=== PATIENT | female | born 1955 | race Caucasian/White ===

== ENCOUNTER 2018-04-07 11:41 | Emergency (ER) | END 2018-04-07 15:23 | disposition home or self-care (01) ==

== ENCOUNTER 2018-08-09 15:35 | Emergency (ER) | payer OTHER ==
[~2018-08-09] VITALS: Ht 165.1 cm; Wt 62.9 kg
[~2018-08-09 15:35] MED LIST: HYDR2TAB36 PO; LEVO100T82 PO; METF500T24 PO; ONDA4TAB14 PO; OXYC-209 PO
[2018-08-09 15:48] VITALS: Ht 165.1 cm; Wt 62.9 kg
[2018-08-09] MEDS ORDERED: LACTATED RINGER'S 1,000 ML IV STA (18:44)
[2018-08-09] MEDS ORDERED: HYDROmorphONE 1 MG/ML SYG IV STA (18:44)
[2018-08-09] MEDS ORDERED: ONDANSETRON 4 MG INJ IV STA (18:44)
[2018-08-09] MEDS ORDERED: SOD CHLORIDE 0.9% 1,000 ML IV STA (18:44)
[2018-08-09] MEDS ORDERED: OMEP20CA16 PO (18:48)
[2018-08-09] MEDS ORDERED: LACT1CAP56 PO (18:48)
--- NOTE | 2018-08-09 19:14 | ERD ---
ER Documentation Chief Complaint Chief Complaint Complains of abdominal pain x 3 days Hx of abdominal CA HPI 63-year-old woman presents with continued abdominal cramping and constipation despite Fleet enema performed last week for constipation. Patient has a history of pancreatic cancer and is currently undergoing chemotherapy. She denies blood per rectum or melena, no fevers or chills, no vomiting, no chest pain or shortness of breath. ROS All systems reviewed and are negative except as per history of present illness. Medications Home Meds Active Scripts Ondansetron (Ondansetron Odt) 4 Mg Tab.rapdis, 4 MG PO Q6H PRN for NAUSEA AND/OR VOMITING, #20 TAB Prov:LYNN DIANA MD 04/07/18 Hydromorphone Hcl* (Dilaudid*) 2 Mg Tablet, 1 MG PO Q6H PRN for PAIN, #12 TAB Prov:LYNN DIANA MD 04/07/18 Reported Medications Omeprazole* (Omeprazole*) 20 Mg Capsule.dr, 20 MG PO AC BREAKFAST, #30 CAP 08/09/18 Lactobacillus Combo No.11 (Probiotic) 1 Each Cap.sprink, 1 CAP PO DAILY, CAP 08/09/18 Oxycodone HCl/Acetaminophen (Percocet 10-325 mg Tablet) 1 Each Tablet, 0.5 EACH PO Q4H WHILE AWAKE PRN for PAIN, TAB 04/07/18 Metformin Hcl* (Metformin Hcl*) 500 Mg Tablet, 500 MG PO WITH BREAKFAST DINNE, #60 TAB 04/07/18 Levothyroxine Sodium* (Levoxyl*) 100 Mcg Tablet, 100 MCG PO BEFORE BREAKFAST, #30 TAB 04/07/18 Allergies Allergies: Coded Allergies: latex (Verified Allergy, Mild, 08/09/18) morphine (Verified Allergy, Unknown, 08/09/18) PMhx/Soc Hypertension, hypothyroidism, gastritis, pancreatic cancer, diabetes mellitus History of Surgery: Yes (HYSTERECTOMY, CHOLECYSTECTOMY,STOMACH SX.,LAPAROSCOPY, BACK SX.,C. TUNNEL) Anesthesia Reaction: No Hx Neurological Disorder: Yes (BALANCE PROBLEMS) Hx Respiratory Disorders: Yes (ASTHMA, HX. OF BRONCHITIS) Hx Cardiac Disorders: No Hx Psychiatric Problems: Yes (ANXIETY, DEPRESSION) Hx Miscellaneous Medical Probl: Yes (HTN, THYROID CA, pancreatic CA) Hx Alcohol Use: No Hx Substance Use: No Hx Tobacco Use: No Physical Exam Vitals Vital Signs Date Temp Pulse Resp B/P (MAP) Pulse Ox O2 O2 Flow FiO2 Time Delivery Rate 08/09/18 100.3 85 20 136/87 100 15:48 (103) Physical Exam GENERAL: Well-developed, well-nourished, well-hydrated, in no apparent distress, looks nontoxic in appearance HEENT: Moist mucous membranes, pink conjunctiva, no cervical spine tenderness or step-off deformities, no goiter, no jaundice or icterus, extraocular movements intact without pain. No submandibular induration, and no pharyngeal erythema NEURO: Alert and oriented 3, cranial nerves II through XII intact bilaterally, pupils equal round reactive to light, no focal deficits or facial asymmetry, sensation intact distally Strength 5/5 in upper and lower extremities bilaterally CARDIAC: Regular rate and rhythm, no murmurs rubs or gallops LUNGS: Clear bilaterally no wheezing crackles or stridor ABDOMEN: Soft nontender, no guarding, no rigidity, no rebound, no psoas sign no obturator sign. Normoactive bowel sounds SKIN: Warm and dry to touch, no abrasions, contusions, or hematomas, no lacerations, no ecchymosis, no target lesions, and without ulcers EXTREMITIES: No clubbing cyanosis or edema, calves are bilaterally symmetrical, no Homans sign, no popliteal cord sign. Distal pulses equal and bilateral PSYCH: Normal affect without agitation or irritability Result Diagram: 08/09/18192908/09/181929 Results 24 hrs Laboratory Tests Test 08/09/18 19:30 08/09/18 19:35 White Blood Count 16.8 10^3/ul Red Blood Count 2.98 10^6/ul Hemoglobin 10.4 g/dl Hematocrit 31.2 % Mean Corpuscular Volume 104.7 fl Mean Corpuscular Hemoglobin 34.9 pg Mean Corpuscular Hemoglobin Concent 33.3 g/dl Red Cell Distribution Width 14.3 % Platelet Count 100 10^3/UL Mean Platelet Volume 10.0 fl Immature Granulocytes % 0.800 % Neutrophils % % Lymphocytes % % Monocytes % % Eosinophils % % Basophils % % Nucleated Red Blood Cells % 0.0 /100WBC Immature Granulocytes # 0.130 10^3/ul Neutrophils # 10^3/ul Lymphocytes # 10^3/ul Monocytes # 10^3/ul Eosinophils # 10^3/ul Basophils # 10^3/ul Nucleated Red Blood Cells # 10^3/ul Sodium Level 138 mmol/L Potassium Level 3.6 mmol/L Chloride Level 108 mmol/L Carbon Dioxide Level 23 mmol/L Anion Gap 7 Blood Urea Nitrogen 11 mg/dl Creatinine 0.58 mg/dl Est Glomerular Filtrat Rate mL/min > 60 mL/min Glucose Level 132 mg/dl Calcium Level 8.9 mg/dl Total Bilirubin 0.3 mg/dl Direct Bilirubin 0.00 mg/dl Indirect Bilirubin 0.3 mg/dl Aspartate Amino Transf (AST/SGOT) 28 IU/L Alanine Aminotransferase (ALT/SGPT) 18 IU/L Alkaline Phosphatase 104 IU/L Total Protein 6.2 g/dl Albumin 3.4 g/dl Globulin 2.80 g/dl Albumin/Globulin Ratio 1.21 Lipase 182 U/L Urine Color YELLOW Urine Clarity SLIGHTLY CLOUDY Urine pH 6.0 Urine Specific [place] 1.020 Urine Ketones NEGATIVE mg/dL Urine Nitrite NEGATIVE mg/dL Urine Bilirubin NEGATIVE mg/dL Urine Urobilinogen NEGATIVE mg/dL Urine Leukocyte Esterase 1+ Clarita/ul Urine Microscopic RBC 2 /HPF Urine Microscopic WBC 10 /HPF Urine Squamous Epithelial Cells FEW /HPF Urine Mucus MANY /HPF Urine Hemoglobin NEGATIVE mg/dL Urine Glucose NEGATIVE mg/dL Urine Total Protein NEGATIVE mg/dl Current Medications Medications Dose Sig/Vijay Start Time Status Last (Trade) Ordered Route PRN Stop Time Admin Dose Reason Admin Sodium 1,000 ml @ Q1H STAT 08/09/18 DC 08/09/18 Chloride 1,000 mls/hr IV 18:44 19:33 08/09/18 19:43 Lactated 1,000 ml @ Q1H STAT 08/09/18 DC 08/09/18 Ringer's 1,000 mls/hr IV 18:44 19:41 08/09/18 19:43 1 mg ONCE STAT 08/09/18 DC 08/09/18 Hydromorphone IV 18:44 19:33 HCl 08/09/18 18:45 (Dilaudid) Ondansetron 4 mg ONCE STAT 08/09/18 DC 08/09/18 HCl (Zofran IV 18:44 19:33 Inj) 08/09/18 18:45 Ceftriaxone 50 ml @ ONCE ONCE 08/09/18 Sodium 100 mls/hr IVPB 20:30 08/09/18 20:59 Procedures/MDM IV line was established patient was placed on environmental monitoring technician rhythm strip revealed a sinus rhythm at about 80 bpm with upright P and T waves. Patient was afebrile I administered 1 L normal saline IV, Dilaudid 1 mg IV, Zofran 4 mg IV. CBC revealed a leukocytosis at 17, electrolytes are normal, liver function tests were normal, urinalysis positive for infection. I administered ceftriaxone 1 g IV. Patient has no signs or symptoms of pyelonephritis. CT scan of the abdomen and pelvis was performed, IMPRESSION: 1. Amorphous soft tissue density in the region of the pancreatic neck, suboptimally assessed on this noncontrast CT examination, neoplastic process is not excluded. Recommend dedicated CT abdomen pancreatic protocol for further evaluation. Upper abdominal lymph nodes may be further assessed at this time. 2. Apparent fat stranding about the pancreas, may in part be related to this apparent amorphous soft tissue process, though correlate for potential pancreatitis. 3. Postsurgical changes of the stomach in this patient with history of gastric cancer. Patient's vital signs are normal at this time and she appears well, she will be discharged with oral antibiotics after above therapy and will follow up with her primary care physician and [facility] physician for continued outpatient management. Differential diagnoses considered, included but not limited to acute coronary syndrome, pulmonary embolism, aortic dissection, abdominal aortic aneurysm, sepsis, stroke, meningitis, encephalitis, pneumonia, appendicitis, cholecystitis , bowel obstruction, pyelonephritis, nephrolithiasis, cystitis, as well as metabolic, hematologic, and electrolyte abnormalities. As well as abscess, cellulitis, fractures, and dislocations. Patient feels much better at this time, and vital signs are normal, symptoms have improved. I did give strict instructions to return to the ED if symptoms continue or worsen, patient will otherwise follow-up with primary care physician. Patient understood instructions and agreed to plan. Disclaimer: Inadvertent spelling and grammatical errors are likely due to EHR/dictation software use and do not reflect on the overall quality of patient care. Also, please note that the electronic time recorded on this note does not necessarily reflect the actual time of the patient encounter. Departure Diagnosis: Primary Impression: Pancreatic cancer Pancreatic malignancy location: unspecified Qualified Codes: C25.9 - Malignant neoplasm of pancreas, unspecified Additional Impressions: Constipation Constipation type: slow transit constipation Qualified Codes: K59.01 - Slow transit constipation Acute UTI Condition: Good LIDIA ONEILL MD Aug 09, 2018 19:14
[2018-08-09] MEDS ORDERED: CEFTRIAXONE 1 GM/50 ML (PMX) 50 ML IVPB ONE (20:30)
[2018-08-09] MEDS ORDERED: IBUP-1542 PO (20:40)
[2018-08-09] MEDS ORDERED: CEPH-443 PO (20:40)
[2018-08-09] MEDS ORDERED: POLY17PO6 PO (20:40)
[2018-08-09 22:30] VITALS: BP 152/91; PULSE 83; RESP 16
== END 2018-08-09 22:50 | disposition home or self-care (01) ==
LOC: E/R 15:35
DX: K59.01 Slow transit constipation (principal); N39.0 Urinary tract infection, site not specified; I10 Essential (primary) hypertension; E11.9 Type 2 diabetes mellitus without complications; E03.9 Hypothyroidism, unspecified; Z85.850 Personal history of malignant neoplasm of thyroid; Z79.84 Long term (current) use of oral hypoglycemic drugs
CPT/HCPCS: 36415; 74176; 80053; 81001; 83690; 85025; 96374; 96375; J0696; J1170; J2405; J7030; J7120; Z7502; Z7610

== ENCOUNTER 2018-08-13 11:23 | Emergency (ER) | payer OTHER ==
[~2018-08-13] VITALS: Ht 167.6 cm; Wt 62.7 kg
[~2018-08-13 11:23] MED LIST changes: +CEPH-443 PO; +IBUP-1542 PO; +LACT1CAP56 PO; +OMEP20CA16 PO; +POLY17PO6 PO
[2018-08-13 11:40] VITALS: Ht 167.6 cm; Wt 62.7 kg
--- NOTE | 2018-08-13 12:28 | ERD ---
ER Documentation Chief Complaint Chief Complaint abdominal pain x 2 days HPI The patient is a 73-year-old female, presenting to the ER because of acute on chronic abdominal pain. She was seen in the ER about 4 days ago and diagnosed with constipation and cystitis, had an abdominal pelvic CT that was unremarkable, was treated with Keflex. The abdominal pain is diffuse and vague. She denies fever, chills, neck pain, chest pain, dyspnea, vomiting, dysuria, diarrhea, constipation. She does not smoke nor drink Past medical history: Diabetes mellitus, hypothyroidism, asthma, anxiety, depression, metastatic pancreatic cancer on chemotherapy Past surgical history: Hysterectomy, cholecystectomy, back surgery, right knee arthroscopy, left knee arthroplasty ROS All systems reviewed and are negative except as per history of present illness. Medications Home Meds Active Scripts Ibuprofen* (Motrin*) 600 Mg Tab, 600 MG PO Q8 PRN for PAIN AND/OR INFLAMMATION, #30 TAB Prov:LIDIA ONEILL MD 08/09/18 Cephalexin* (Keflex*) 500 Mg Capsule, 500 MG PO QID for 5 Days, CAP Prov:LIDIA ONEILL MD 08/09/18 Reported Medications Levothyroxine Sodium* (Levoxyl*) 100 Mcg Tablet, 100 MCG PO BEFORE BREAKFAST, #30 TAB 04/07/18 Discontinued Reported Medications Omeprazole* (Omeprazole*) 20 Mg Capsule.dr, 20 MG PO AC BREAKFAST, #30 CAP 08/09/18 Lactobacillus Combo No.11 (Probiotic) 1 Each Cap.sprink, 1 CAP PO DAILY, CAP 08/09/18 Oxycodone HCl/Acetaminophen (Percocet 10-325 mg Tablet) 1 Each Tablet, 0.5 EACH PO Q4H WHILE AWAKE PRN for PAIN, TAB 04/07/18 Metformin Hcl* (Metformin Hcl*) 500 Mg Tablet, 500 MG PO WITH BREAKFAST DINNE, #60 TAB 04/07/18 Discontinued Scripts Polyethylene Glycol* (Miralax*) 17 Gm Powd.pack, 17 GM PO DAILY, #7 Prov:LIDIA ONEILL MD 08/09/18 Ondansetron (Ondansetron Odt) 4 Mg Tab.rapdis, 4 MG PO Q6H PRN for NAUSEA AND/OR VOMITING, #20 TAB Prov:LYNN DIANA MD 04/07/18 Hydromorphone Hcl* (Dilaudid*) 2 Mg Tablet, 1 MG PO Q6H PRN for PAIN, #12 TAB Prov:LYNN DIANA MD 04/07/18 Allergies Allergies: Coded Allergies: latex (Verified Allergy, Mild, 08/13/18) morphine (Verified Allergy, Unknown, 08/13/18) PMhx/Soc History of Surgery: Yes (HYSTERECTOMY, CHOLECYSTECTOMY,STOMACH SX.,LAPAROSCOPY, BACK SX.,C. TUNNEL) Anesthesia Reaction: No Hx Neurological Disorder: Yes (BALANCE PROBLEMS) Hx Respiratory Disorders: Yes (ASTHMA, HX. OF BRONCHITIS) Hx Cardiac Disorders: No Hx Psychiatric Problems: Yes (ANXIETY, DEPRESSION) Hx Miscellaneous Medical Probl: Yes (HTN, THYROID CA, pancreatic CA) Hx Alcohol Use: No Hx Substance Use: No Hx Tobacco Use: No Physical Exam Vitals Vital Signs Date Temp Pulse Resp B/P (MAP) Pulse Ox O2 O2 Flow FiO2 Time Delivery Rate 08/13/18 98.7 76 16 158/87 100 Room Air 16:44 (110) 08/13/18 98.7 74 16 160/90 100 Room Air 15:30 (113) 08/13/18 98.7 70 18 162/81 100 Room Air 14:10 (108) 08/13/18 98.7 83 20 151/89 100 11:40 (109) Physical Exam Const: No acute distress. Head: Atraumatic. Eyes: Normal Conjunctiva. ENT: Normal External Ears, Nose and Mouth. Neck: Full range of motion. No meningismus. Resp: Clear to auscultation bilaterally. Cardio: Regular rate and rhythm. Abd: Soft, non distended, normal bowel sounds, vague and diffuse abdominal discomfort, no rigidity/rebound/CVA tenderness Skin: No petechiae or rashes. Back: No midline or flank tenderness. Ext: No cyanosis, or edema. Neur: Awake and alert. No focal deficit Psych: Normal Mood and Affect. Result Diagram: 08/13/18 1311 08/13/18 1311 Results 24 hrs Laboratory Tests Test 08/13/18 12:44 08/13/18 13:11 Bedside Urine pH (LAB) 7.0 Bedside Urine Protein (LAB) 1+ Bedside Urine Glucose (UA) Negative Bedside Urine Ketones (LAB) Trace Bedside Urine Blood Trace-intact Bedside Urine Nitrite (LAB) Negative Bedside Urine Leukocyte Esterase (L Negative White Blood Count 4.3 10^3/ul Red Blood Count 2.92 10^6/ul Hemoglobin 10.3 g/dl Hematocrit 30.4 % Mean Corpuscular Volume 104.1 fl Mean Corpuscular Hemoglobin 35.3 pg Mean Corpuscular Hemoglobin Concent 33.9 g/dl Red Cell Distribution Width 13.7 % Platelet Count 83 10^3/UL Mean Platelet Volume 10.2 fl Immature Granulocytes % 0.900 % Nucleated Red Blood Cells % 0.0 /100WBC Immature Granulocytes # 0.040 10^3/ul Sodium Level 140 mmol/L Potassium Level 3.6 mmol/L Chloride Level 110 mmol/L Carbon Dioxide Level 22 mmol/L Anion Gap 8 Blood Urea Nitrogen 10 mg/dl Creatinine 0.53 mg/dl Est Glomerular Filtrat Rate mL/min > 60 mL/min Glucose Level 103 mg/dl Calcium Level 9.0 mg/dl Total Bilirubin 0.6 mg/dl Direct Bilirubin 0.00 mg/dl Indirect Bilirubin 0.6 mg/dl Aspartate Amino Transf (AST/SGOT) 29 IU/L Alanine Aminotransferase (ALT/SGPT) 22 IU/L Alkaline Phosphatase 82 IU/L Total Protein 6.2 g/dl Albumin 3.5 g/dl Globulin 2.70 g/dl Albumin/Globulin Ratio 1.29 Lipase 115 U/L Current Medications Medications Dose Sig/Vijay Start Time Status Last (Trade) Ordered Route PRN Stop Time Admin Dose Reason Admin 0.5 mg ONCE STAT 08/13/18 DC 08/13/18 Hydromorphone IV 12:53 08/13/18 13:17 HCl 12:54 (Dilaudid) Ondansetron 4 mg ONCE STAT 08/13/18 DC 08/13/18 HCl (Zofran IV 12:53 08/13/18 13:17 Inj) 12:54 Heparin 500 unit ONCE ONCE 08/13/18 DC 08/13/18 Sodium CATHETER 16:30 08/13/18 16:40 (Porcine) 16:31 (Heparin Flush (100 Units/ml)) Procedures/MDM MEDICAL MAKING DECISION: The patient is a 63-year-old female, presenting with acute on chronic abdominal pain of unclear etiology, most likely malignancy related to metastatic pancreatic cancer. She was treated with Dilaudid 0.5 mg IV for pain and Zofran for medical IV for nausea with good response, as above outpatient follow-up. I do not believe she requires another CT scan abdominopelvic The differential diagnoses considered include but are not limited to adhesion, UTI, constipation, cholelithiasis, cholecystitis, choledocholithiasis, cholangitis, pancreatitis, hepatitis, gastritis, peptic ulcer disease, gastric ulcer, appendicitis, cystitis, diverticulitis, partial small bowel obstruction. Departure Diagnosis: Primary Impression: Abdominal pain Additional Impression: Pancytopenia Condition: Good Comments I discussed the findings with the patient. I advised the patient to follow-up with her oncologist in the morning for evaluation and referral to pain management physician return if any concern. Disclaimer: Inadvertent spelling and grammatical errors are likely due to EHR/dictation software use and do not reflect on the overall quality of patient care. Also, please note that the electronic time recorded on this note does not necessarily reflect the actual time of the patient encounter. OBI JOHNSTON MD Aug 13, 2018 12:28
[2018-08-13] MEDS ORDERED: ONDANSETRON 4 MG INJ IV STA (12:53)
[2018-08-13] MEDS ORDERED: HYDROmorphONE 0.5 MG/0.5 ML SYG IV STA (12:53)
[2018-08-13] MEDS ORDERED: HEPARIN (100 UNITS/ML) 5 ML SYG CATHETER ONE (16:30)
[2018-08-13 16:44] VITALS: BP 158/87; PULSE 76; RESP 16
== END 2018-08-13 16:45 | disposition home or self-care (01) ==
LOC: E/R 11:23
DX: R10.9 Unspecified abdominal pain (principal); D61.818 Other pancytopenia; E11.9 Type 2 diabetes mellitus without complications; E03.9 Hypothyroidism, unspecified; J45.909 Unspecified asthma, uncomplicated; C25.9 Malignant neoplasm of pancreas, unspecified; I10 Essential (primary) hypertension; Z79.84 Long term (current) use of oral hypoglycemic drugs; Z85.850 Personal history of malignant neoplasm of thyroid; Z91.040 Latex allergy status
CPT/HCPCS: 36415; 80053; 81003; 83690; 85025; 96374; 96375; J1170; J1642; J2405; Z7502; Z7610

== ENCOUNTER 2018-08-31 09:49 | Emergency (ER) | payer OTHER ==
[~2018-08-31] VITALS: Ht 157.5 cm; Wt 68.0 kg
[~2018-08-31 09:49] MED LIST changes: -HYDR2TAB36 PO; -LACT1CAP56 PO; -METF500T24 PO; -OMEP20CA16 PO; -ONDA4TAB14 PO; -OXYC-209 PO; -POLY17PO6 PO
[2018-08-31 09:52] VITALS: Ht 157.5 cm; Wt 68.0 kg
[2018-08-31] MEDS ORDERED: HYDROmorphONE 1 MG/ML SYG IV STA (10:31)
[2018-08-31] MEDS ORDERED: SOD CHLORIDE 0.9% 1,000 ML IV STA (10:31)
[2018-08-31] MEDS ORDERED: ONDANSETRON 4 MG INJ IV STA ×2 (10:31→12:43)
[2018-08-31] MEDS ORDERED: SOD CHLORIDE 0.9% 100 ML ONE (11:18)
[2018-08-31] MEDS ORDERED: IOHEXOL 300MG/ML 150 ML BTL ONE (11:18)
--- NOTE | 2018-08-31 11:41 | ERD ---
ER Documentation Chief Complaint Chief Complaint pt bib self with c/o abd pain starting a few days HPI This is a 63-year-old female who is here for abdominal pain. The patient is currently being treated for pancreatic cancer and has her next chemo treatment on 05 September. She is complaining that she fell 3 weeks ago landing on her stomach. She says she thinks she made her hernia worse. The patient is a history of a epigastric hernia and a periumbilical hernia. She says she feels like there is a ball in her right lower abdomen. She has no vomiting but she is having green solid stools she states sometimes they are green and soft. No fever no cough no dysuria no back pain or hematuria. ROS All systems reviewed and are negative except as per history of present illness. Medications Home Meds Active Scripts Tramadol HCl (Tramadol HCl) 50 Mg Tablet, 50 MG PO Q6, #20 TAB Prov:DAMI FAIRCHILD DO 08/31/18 Ibuprofen* (Motrin*) 600 Mg Tab, 600 MG PO Q8 PRN for PAIN AND/OR INFLAMMATION, #30 TAB Prov:LIDIA ONEILL MD 08/09/18 Cephalexin* (Keflex*) 500 Mg Capsule, 500 MG PO QID for 5 Days, CAP Prov:LIDIA ONEILL MD 08/09/18 Reported Medications Levothyroxine Sodium* (Levoxyl*) 100 Mcg Tablet, 100 MCG PO BEFORE BREAKFAST, #30 TAB 04/07/18 Allergies Allergies: Coded Allergies: latex (Verified Allergy, Mild, 08/13/18) morphine (Verified Allergy, Unknown, 08/13/18) PMhx/Soc History of Surgery: Yes (HYSTERECTOMY, CHOLECYSTECTOMY,STOMACH SX.,LAPAROSCOPY, BACK SX.,C. TUNNEL) Anesthesia Reaction: No Hx Neurological Disorder: Yes (BALANCE PROBLEMS) Hx Respiratory Disorders: Yes (ASTHMA, HX. OF BRONCHITIS) Hx Cardiac Disorders: No Hx Psychiatric Problems: Yes (ANXIETY, DEPRESSION) Hx Miscellaneous Medical Probl: Yes (HTN, THYROID CA, pancreatic CA) Hx Alcohol Use: No Hx Substance Use: No Hx Tobacco Use: No Smoking Status: Never smoker FmHx Family History: No coronary disease Physical Exam Vitals Vital Signs Date Temp Pulse Resp B/P (MAP) Pulse Ox O2 O2 Flow FiO2 Time Delivery Rate 08/31/18 74 18 152/67 99 Room Air 13:42 (95) 08/31/18 80 14 157/76 98 Room Air 12:00 (103) 08/31/18 78 14 135/77 99 Room Air 10:00 (96) 08/31/18 98.5 92 18 165/90 100 09:52 (115) Physical Exam Const: Well-developed, well-nourished Head: Atraumatic, normocephalic Eyes: Normal Conjunctiva, PERRLA, EOMI, normal sclera, no nystagmus ENT: Normal External Ears, Nose and Mouth, moist mucus membranes. Neck: Full range of motion. No meningismus, no lymphadenopathy. Resp: Clear to auscultation bilaterally, no wheezing, rhonchi, rales Cardio: Regular rate and rhythm, no murmurs, S1 S2 present Abd: Soft, mild to moderate mid and right lower abdomen pain, non distended. Normal bowel sounds, no guarding or rebound, no pulsitile abdominal masses or bruits Skin: No petechiae or rashes, no ecchymosis , no maculopapular rash Back: No midline or flank tenderness Ext: No cyanosis, or edema, FROM x 4, normal inspection, neurovascul alia intact x 4 Neur: Awake and alert, STR 5/5 x 4, sensation intact x 4, no focal findings, cerebellum intact Psych: Normal Mood and Affect Result Diagram: 08/31/18 1033 08/31/18 1033 Results 24 hrs Laboratory Tests Test 08/31/18 10:33 08/31/18 11:30 White Blood Count 8.0 10^3/ul Red Blood Count 2.79 10^6/ul Hemoglobin 9.9 g/dl Hematocrit 29.8 % Mean Corpuscular Volume 106.8 fl Mean Corpuscular Hemoglobin 35.5 pg Mean Corpuscular Hemoglobin Concent 33.2 g/dl Red Cell Distribution Width 13.9 % Platelet Count 89 10^3/UL Mean Platelet Volume 10.1 fl Immature Granulocytes % 1.900 % Neutrophils % 76.1 % Lymphocytes % 15.2 % Monocytes % 6.0 % Eosinophils % 0.4 % Basophils % 0.4 % Nucleated Red Blood Cells % 0.0 /100WBC Immature Granulocytes # 0.150 10^3/ul Neutrophils # 6.1 10^3/ul Lymphocytes # 1.2 10^3/ul Monocytes # 0.5 10^3/ul Eosinophils # 0.0 10^3/ul Basophils # 0.0 10^3/ul Nucleated Red Blood Cells # 0.0 10^3/ul Prothrombin Time 13.9 Sec Prothrombin Time Ratio 1.1 INR International Normalized Ratio 1.06 Activated Partial Thromboplast Time 42.0 Sec Sodium Level 142 mmol/L Potassium Level 3.5 mmol/L Chloride Level 107 mmol/L Carbon Dioxide Level 24 mmol/L Anion Gap 11 Blood Urea Nitrogen 8 mg/dl Creatinine 0.52 mg/dl Est Glomerular Filtrat Rate mL/min > 60 mL/min Glucose Level 158 mg/dl Calcium Level 9.1 mg/dl Total Bilirubin 0.5 mg/dl Direct Bilirubin 0.00 mg/dl Indirect Bilirubin 0.5 mg/dl Aspartate Amino Transf (AST/SGOT) 28 IU/L Alanine Aminotransferase (ALT/SGPT) 21 IU/L Alkaline Phosphatase 98 IU/L Total Protein 6.1 g/dl Albumin 3.3 g/dl Globulin 2.80 g/dl Albumin/Globulin Ratio 1.17 Lipase 60 U/L Urine Color YELLOW Urine Clarity CLEAR Urine pH 7.0 Urine Specific Kechi 1.012 Urine Ketones NEGATIVE mg/dL Urine Nitrite NEGATIVE mg/dL Urine Bilirubin NEGATIVE mg/dL Urine Urobilinogen NEGATIVE mg/dL Urine Leukocyte Esterase NEGATIVE Clarita/ul Urine Hemoglobin NEGATIVE mg/dL Urine Glucose NEGATIVE mg/dL Urine Total Protein NEGATIVE mg/dl Current Medications Medications Dose Sig/Vijay Start Time Status Last (Trade) Ordered Route PRN Stop Time Admin Dose Reason Admin Sodium 1,000 ml @ Q1H STAT 08/31/18 DC 08/31/18 Chloride 1,000 mls/hr IV 10:31 10:59 08/31/18 11:30 1 mg ONCE STAT 08/31/18 DC 08/31/18 Hydromorphone IV 10:31 10:59 HCl 08/31/18 10:33 (Dilaudid) Ondansetron 4 mg ONCE STAT 08/31/18 DC 08/31/18 HCl (Zofran IV 10:31 10:59 Inj) 08/31/18 10:33 IV Flush 10 ml STK-MED 08/31/18 DC 08/31/18 (NS 10 ml) ONCE .ROUTE 11:18 11:28 08/31/18 11:19 Sodium 100 ml @ ud STK-MED 08/31/18 DC 08/31/18 Chloride ONCE .ROUTE 11:18 11:28 08/31/18 11:19 Iohexol 150 ml STK-MED 08/31/18 DC 08/31/18 (Omnipaque ONCE .ROUTE 11:18 11:29 300mg/ ml) 08/31/18 11:19 Ondansetron 4 mg ONCE STAT 08/31/18 DC 08/31/18 HCl (Zofran IV 12:43 12:50 Inj) 08/31/18 12:44 Procedures/MDM Ordering MD: DAMI FAIRCHILD DO Location: E/R Room/Bed: PROCEDURE: CT Abdomen and Pelvis with contrast. CLINICAL INDICATION: Abdominal Pain, history of pancreatic cancer on chemotherapy TECHNIQUE: CT scan of the abdomen and pelvis with contrast was performed on a multi-detector high-resolution CT scanner. The patient was scanned following the uncomplicated intravenous administration of 90 cc of Omnipaque 300 IV contrast. Oral contrast was not administered. Coronal and sagittal reformatted images were obtained from the axial source images. DICOM images are available. CTDI equals 10.67 mGy, and DLP equals 575.52 mGy-cm. One or more of the following dose reduction techniques were used: - Automated exposure control. - Adjustment of the mA and/or kV according to patient size. - Use of iterative reconstruction technique. COMPARISON: CT 08/09/2018; PT CT 03/16/2016. FINDINGS: Lower thorax: Normal. Liver: There is streak artifact from adjacent surgical material which somewhat limits evaluation of the liver; within this limitation no gross hypoenhancing lesions to suggest metastatic disease. Bile Ducts: Mild prominence of the biliary system is not unexpected status post cholecystectomy. Gallbladder: Status post cholecystectomy. Pancreas: Hypoattenuating mass in the pancreatic neck measuring approximately 3.4 x 2.8 x 2.1 cm, though measurements are somewhat difficult given amorphous borders. A discrete fat plane between this process in the distal stomach is not identified which may be secondary to adjacent inflammatory changes though involvement of the stomach is not entirely excluded (for example see series 3 image 37 - 38). This process appears to encase the distal celiac axis (coronal series 601 image 35, axial series 3 image 40). The common hepatic artery is not well visualized and likely encased. The portal confluence and proximal main portal vein is narrowed and appears more focally narrowed without definitive intravenous contrast visualized over an approximately 2 mm segment (series 3 image 41), though the more distal main portal vein and its right and left hepatic branches are widely patent without evidence of thrombus. There is atrophy of the distal pancreatic parenchyma. Spleen: Normal. Adrenal Glands: Normal. Kidneys/Ureters: Normal. Bladder: Normal. Reproductive organs: Status post hysterectomy Gastrointestinal Tract: Postsurgical changes are seen about the stomach; otherwise as above. Scattered colonic diverticula without evidence of diverticulitis. No definite evidence of appendicitis. Peritoneum/Retroperitoneum: No free fluid or free air. Lymph nodes: No gross bulky adenopathy. Vessels: As above. Otherwise mild atherosclerotic calcifications of the aorta. Abdominal/Pelvic Wall: Mild body wall edema. Bones: Posterolateral spinal fusion at L5-S1 with discectomy and disc space replacement at this level. Lower lumbar facet arthropathy with mild anterolisthesis at L4-L5. Additional mild degenerative changes in the spine. IMPRESSION: 1. Findings compatible with provided history of pancreatic cancer. Please see above for further details. 2. Additional findings as above. RPTAT: PP Physician Esperanza Date Time Electronically viewed and signed by Tori Vega Physician on 08/31/2018 12:31 RP/ CC: DAMI FAIRCHILD DO [id number] No acute pathology on CT scan and her labs looks relatively stable. Patient likely has some type of abdominal wall contusion and will discharge home with Ultram Departure Diagnosis: Primary Impression: Abdominal pain Abdominal location: lower abdomen, unspecified Qualified Codes: R10.30 - Lower abdominal pain, unspecified Condition: Stable DAMI FAIRCHILD DO Aug 31, 2018 11:41
[2018-08-31] MEDS ORDERED: TRAM50TA2 PO (13:38)
[2018-08-31] MEDS ORDERED: HEPARIN (100 UNITS/ML) 5 ML SYG CATHETER ONE (14:00)
[2018-08-31] MEDS ORDERED: METO10TA3 ORAL (14:03)
[2018-08-31] MEDS ORDERED: HYDR4TAB ORAL (14:03)
[2018-08-31] MEDS ORDERED: OMEP40CA6 ORAL (14:03)
[2018-08-31 14:15] VITALS: BP 151/72; PULSE 82; RESP 15
== END 2018-08-31 14:15 | disposition home or self-care (01) ==
LOC: E/R 09:49
DX: R10.31 Right lower quadrant pain (principal); I10 Essential (primary) hypertension; J45.909 Unspecified asthma, uncomplicated; Z85.07 Personal history of malignant neoplasm of pancreas; Z85.850 Personal history of malignant neoplasm of thyroid; Z91.040 Latex allergy status
CPT/HCPCS: 36415; 74177; 80053; 81003; 83690; 85025; 85610; 85730; 96374; 96375; 96376; J1170; J1642; J2405; J7030; Q9967; Z7502; Z7610

== ENCOUNTER 2018-11-05 11:23 | Emergency (ER) | payer OTHER ==
[~2018-11-05] VITALS: Ht 160 cm; Wt 60.4 kg
[~2018-11-05 11:23] MED LIST changes: -CEPH-443 PO; +HYDR4TAB ORAL; -IBUP-1542 PO; +METO10TA3 ORAL; +OMEP40CA6 PO; +TRAM50TA2 PO
[2018-11-05 11:28] VITALS: Ht 160 cm; Wt 60.4 kg
--- NOTE | 2018-11-05 13:05 | ERD ---
ER Documentation Chief Complaint Chief Complaint ABDOMINAL PAIN & DIARRHEA X6 DAYS, PANCREATIC CA CHEMO HPI The patient is a 63-year-old female, presenting to the ER because of chronic abdominal pain and intermittent diarrhea for the last 6 days. She denies hematemesis/hematochezia. She has been receiving medication due to her le ukopenia from chemotherapy, however she does not know the name of the medication (most likely Neupogen) by her oncologist for the last 6 days. She complains of decreased appetite and wants IV fluid. She denies fever, chills, neck pain, chest pain, dyspnea, dysuria. Past medical history: History of pancreatic cancer on chemotherapy, hypothyroidism, asthma, anxiety, depression, history of thyroid carcinoma Past surgical history: Hysterectomy, cholecystectomy ROS All systems reviewed and are negative except as per history of present illness. Medications Home Meds Active Scripts Pantoprazole* (Protonix*) 40 Mg Tablet., 40 MG PO DAILY, #10 TAB Prov:OBI JOHNSTON MD 11/05/18 Tramadol HCl (Tramadol HCl) 50 Mg Tablet, 50 MG PO Q6 PRN for PAIN, #10 TAB Prov:OBI JOHNSTON MD 11/05/18 Reported Medications Omeprazole* (Omeprazole*) 40 Mg Capsule., 1 CAP PO DAILY 08/31/18 Levothyroxine Sodium* (Levoxyl*) 100 Mcg Tablet, 100 MCG PO BEFORE BREAKFAST, #30 TAB 04/07/18 Discontinued Reported Medications Hydromorphone Hcl (Dilaudid) 4 Mg Tab, 1 TAB ORAL TID PRN for PAIN LEVEL 7-10 08/31/18 Metoclopramide Hcl* (Metoclopramide Hcl*) 10 Mg Tablet, 1 TAB ORAL tid ac 08/31/18 Discontinued Scripts Tramadol HCl (Tramadol HCl) 50 Mg Tablet, 50 MG PO Q6, #20 TAB Prov:DAMI FAIRCHILD DO 08/31/18 Allergies Allergies: Coded Allergies: latex (Verified Allergy, Mild, 11/05/18) morphine (Verified Allergy, Unknown, 11/05/18) PMhx/Soc History of Surgery: Yes (HYSTERECTOMY, CHOLECYSTECTOMY,STOMACH SX.,LAPAROSCOPY, BACK SX.,C. TUNNEL) Anesthesia Reaction: No Hx Neurological Disorder: Yes (BALANCE PROBLEMS) Hx Respiratory Disorders: Yes (ASTHMA, HX. OF BRONCHITIS) Hx Cardiac Disorders: No Hx Psychiatric Problems: Yes (ANXIETY, DEPRESSION) Hx Miscellaneous Medical Probl: Yes (HTN, THYROID CA, pancreatic CA) Hx Alcohol Use: No Hx Substance Use: No Hx Tobacco Use: No Physical Exam Vitals Vital Signs Date Temp Pulse Resp B/P (MAP) Pulse Ox O2 O2 Flow FiO2 Time Delivery Rate 11/05/18 80 20 154/77 100 Room Air 15:16 (102) 11/05/18 98.4 80 18 167/71 100 11:28 (103) Physical Exam Const: No acute distress. Head: Atraumatic. Eyes: Normal Conjunctiva. ENT: Normal External Ears, Nose and Mouth. Neck: Full range of motion. No meningismus. Resp: Clear to auscultation bilaterally. Cardio: Regular rate and rhythm. Abd: Soft, non distended, normal bowel sounds, mild epigastric discomfort, no right lower quadrant/rigidity/rebound/CVA tenderness Skin: No petechiae or rashes. Back: No midline or flank tenderness. Ext: No cyanosis, or edema. Neur: Awake and alert. No focal deficit Psych: Normal Mood and Affect. Result Diagram: 11/05/18 1345 11/05/18 1345 Results 24 hrs Laboratory Tests Test 11/05/18 13:41 11/05/18 13:45 Bedside Urine pH (LAB) 7.0 Bedside Urine Protein (LAB) Trace Bedside Urine Glucose (UA) Negative Bedside Urine Ketones (LAB) 1+ Bedside Urine Blood Negative Bedside Urine Nitrite (LAB) Negative Bedside Urine Leukocyte Esterase (L Negative White Blood Count 4.9 10^3/ul Red Blood Count 2.97 10^6/ul Hemoglobin 10.2 g/dl Hematocrit 30.6 % Mean Corpuscular Volume 103.0 fl Mean Corpuscular Hemoglobin 34.3 pg Mean Corpuscular Hemoglobin Concent 33.3 g/dl Red Cell Distribution Width 15.4 % Platelet Count 93 10^3/UL Mean Platelet Volume 10.7 fl Immature Granulocytes % 2.000 % Neutrophils % 58.6 % Lymphocytes % 26.6 % Monocytes % 11.2 % Eosinophils % 0.8 % Basophils % 0.8 % Nucleated Red Blood Cells % 0.0 /100WBC Immature Granulocytes # 0.100 10^3/ul Neutrophils # 2.9 10^3/ul Lymphocytes # 1.3 10^3/ul Monocytes # 0.6 10^3/ul Eosinophils # 0.0 10^3/ul Basophils # 0.0 10^3/ul Nucleated Red Blood Cells # 0.0 10^3/ul Sodium Level 141 mmol/L Potassium Level 3.6 mmol/L Chloride Level 109 mmol/L Carbon Dioxide Level 24 mmol/L Anion Gap 8 Blood Urea Nitrogen 9 mg/dl Creatinine 0.55 mg/dl Est Glomerular Filtrat Rate mL/min > 60 mL/min Glucose Level 105 mg/dl Calcium Level 9.1 mg/dl Total Bilirubin 0.8 mg/dl Direct Bilirubin 0.00 mg/dl Indirect Bilirubin 0.8 mg/dl Aspartate Amino Transf (AST/SGOT) 31 IU/L Alanine Aminotransferase (ALT/SGPT) 33 IU/L Alkaline Phosphatase 144 IU/L Total Protein 6.8 g/dl Albumin 3.7 g/dl Globulin 3.10 g/dl Albumin/Globulin Ratio 1.19 Lipase 42 U/L Current Medications Medications Dose Sig/Vijay Start Time Status Last (Trade) Ordered Route PRN Stop Time Admin Dose Reason Admin Sodium 500 ml @ Q1H ONCE 11/05/18 DC 11/05/18 Chloride 500 mls/hr IV 13:30 13:49 11/05/18 14:29 Tramadol 50 mg ONCE ONCE 11/05/18 HCl PO 15:30 (Ultram) 11/05/18 15:31 Procedures/MDM EKG: Read by emergency physician Rate/Rhythm: Normal Sinus Rhythm 74 beats/min QRS, ST, T-waves: No ST elevation, no T inversion, LAE, low voltage Impression: Abnormal EKG MEDICAL MAKING DECISION: The patient is a 63-year-old female, presenting with chronic abdominal pain. She was treated with normal saline 500 mL IV for clinical dehydration, tramadol 50 mg p.o. for her chronic abdominal pain with good response, is stable for outpatient follow-up The differential diagnoses considered include but are not limited to adhesion, metastatic pancreatic ca, cholelithiasis, cholecystitis, choledocholithiasis, cholangitis, pancreatitis, hepatitis, gastritis, peptic ulcer disease, gastric ulcer, appendicitis, cystitis, diverticulitis, partial small bowel obstruc tion. Departure Diagnosis: Primary Impression: Abdominal pain Additional Impressions: Anemia Thrombocytopenia Condition: Good Comments She was discharged with tramadol and Protonix I discussed the findings with the patient. I advised the patient to follow-up with the primary physician in about 1-2 days for reevaluation and referral to gastroenterology for further evaluation, sooner if needed and return if any concern. Disclaimer: Inadvertent spelling and grammatical errors are likely due to EHR/dictation software use and do not reflect on the overall quality of patient care. Also, please note that the electronic time recorded on this note does not necessarily reflect the actual time of the patient encounter. OBI JOHNSTON MD November 05, 2018 13:05
[2018-11-05] MEDS ORDERED: SOD CHLORIDE 0.9% 500 ML IV ONE (13:30)
[2018-11-05 15:16] VITALS: BP 154/77; PULSE 80; RESP 20
[2018-11-05] MEDS ORDERED: TRAM50TA2 PO (15:23)
[2018-11-05] MEDS ORDERED: PANT40TA3 PO (15:24)
[2018-11-05] MEDS ORDERED: traMADol 50 MG TAB PO ONE (15:30)
[2018-11-05] MEDS ORDERED: HEPARIN (100 UNITS/ML) 5 ML SYG CATHETER ONE (16:00)
== END 2018-11-05 16:04 | disposition home or self-care (01) ==
LOC: E/R 11:23
DX: R10.13 Epigastric pain (principal); E03.9 Hypothyroidism, unspecified; J45.909 Unspecified asthma, uncomplicated; I10 Essential (primary) hypertension; C25.9 Malignant neoplasm of pancreas, unspecified; D64.9 Anemia, unspecified; D69.6 Thrombocytopenia, unspecified; Z85.850 Personal history of malignant neoplasm of thyroid; Z91.040 Latex allergy status
CPT/HCPCS: 36415; 80053; 81003; 83690; 85025; 93005; J1642; J7040; Z7502; Z7610

== ENCOUNTER 2018-12-21 15:52 | Inpatient (IN) | payer OTHER ==
[~2018-12-21] VITALS: Ht 157.5 cm; Wt 56.0 kg
[~2018-12-21 15:52] MED LIST changes: -HYDR4TAB ORAL; -METO10TA3 ORAL; +PANT40TA3 PO
[2018-12-21 16:01] VITALS: Ht 157.5 cm; Wt 56.0 kg
[2018-12-21] MEDS ORDERED: ONDANSETRON 4 MG INJ IV STA (17:37)
[2018-12-21] MEDS ORDERED: SOD CHLORIDE 0.9% 1,000 ML IV STA (17:37)
[2018-12-21] MEDS ORDERED: PANTOPRAZOLE IV 80 MG in SOD CHLORIDE 0.9% 100 ML IV STA (17:37)
[2018-12-21] MEDS ORDERED: PANTOPRAZOLE IV 80 MG in SOD CHLORIDE 0.9% 100 ML IVPB STA (17:37)
[2018-12-21] MEDS ORDERED: HYDROmorphONE 1 MG/ML SYG IV STA (17:37)
[2018-12-21] MEDS ORDERED: ONDANSETRON 4 MG INJ ONE (18:21)
[2018-12-21] MEDS ORDERED: HYDROmorphONE 1 MG/ML SYG ONE (18:21)
--- NOTE | 2018-12-21 19:32 | ERD ---
ER Documentation Chief Complaint Chief Complaint pt is bib family with c/o rectal bleeding ,dx pancreatic cancer getting tx HPI This is a patient who is 63-year-old female who is getting chemo currently for pancreatic cancer. She said this morning she started having some diffuse lower abdominal pain and had a urge to have a bowel movement and only blood came out with very little stool. She said the same thing happened last week. She has no nausea vomiting. She has no abdominal pain currently. She said this is happened about 4 times over the past month. The patient does take Pepto-Bismol off and on his and has had black stool at time. She did take Pepto-Bismol today ROS All systems reviewed and are negative except as per history of present illness. Medications Home Meds Active Scripts Pantoprazole* (Protonix*) 40 Mg Tablet., 40 MG PO DAILY, #10 TAB Prov:OBI JOHNSTON MD 11/05/18 Tramadol HCl (Tramadol HCl) 50 Mg Tablet, 50 MG PO Q6 PRN for PAIN, #10 TAB Prov:OBI JOHNSTON MD 11/05/18 Reported Medications Omeprazole* (Omeprazole*) 40 Mg Capsule., 1 CAP PO DAILY 08/31/18 Levothyroxine Sodium* (Levoxyl*) 100 Mcg Tablet, 100 MCG PO BEFORE BREAKFAST, #30 TAB 04/07/18 Allergies Allergies: Coded Allergies: latex (Verified Allergy, Mild, 11/05/18) morphine (Verified Allergy, Unknown, 11/05/18) PMhx/Soc History of Surgery: Yes (HYSTERECTOMY, CHOLECYSTECTOMY,STOMACH SX.,LAPAROSCOPY, BACK SX.,C. TUNNEL) Anesthesia Reaction: No Hx Neurological Disorder: Yes (BALANCE PROBLEMS) Hx Respiratory Disorders: Yes (ASTHMA, HX. OF BRONCHITIS) Hx Cardiac Disorders: No Hx Psychiatric Problems: Yes (ANXIETY, DEPRESSION) Hx Miscellaneous Medical Probl: Yes (HTN, THYROID CA, pancreatic CA) Hx Alcohol Use: No Hx Substance Use: No Hx Tobacco Use: No Smoking Status: Never smoker FmHx Family History: No coronary disease Physical Exam Vitals Vital Signs Date Temp Pulse Resp B/P (MAP) Pulse Ox O2 O2 Flow FiO2 Time Delivery Rate 12/21/18 91 21 148/78 100 Room Air 19:44 (101) 12/21/18 97.9 99 20 174/86 98 16:01 (115) Physical Exam Const: Well-developed, well-nourished Head: Atraumatic, normocephalic Eyes: Normal Conjunctiva, PERRLA, EOMI, normal sclera, no nystagmus ENT: Normal External Ears, Nose and Mouth, moist mucus membranes. Neck: Full range of motion. No meningismus, no lymphadenopathy. Resp: Clear to auscultation bilaterally, no wheezing, rhonchi, rales Cardio: Regular rate and rhythm, no murmurs, S1 S2 present Abd: Soft, mild diffuse lower abdominal tenderness, non distended. Normal bowel sounds, no guarding or rebound, no pulsitile abdominal masses or bruits Skin: No petechiae or rashes, no ecchymosis , no maculopapular rash Back: No midline or flank tenderness Ext: No cyanosis, or edema, FROM x 4, normal inspection, neurovascularly intact x 4 Neur: Awake and alert, STR 5/5 x 4, sensation intact x 4, no focal findings, cerebellum intact Psych: Normal Mood and Affect Result Diagram: 12/21/18183912/21/181839 Results 24 hrs Laboratory Tests Test 12/21/18 18:40 White Blood Count 10.1 10^3/ul Red Blood Count 3.01 10^6/ul Hemoglobin 10.4 g/dl Hematocrit 30.3 % Mean Corpuscular Volume 100.7 fl Mean Corpuscular Hemoglobin 34.6 pg Mean Corpuscular Hemoglobin Concent 34.3 g/dl Red Cell Distribution Width 14.2 % Platelet Count 70 10^3/UL Mean Platelet Volume 11.8 fl Neutrophils % 87.5 % Lymphocytes % 9.4 % Monocytes % 0.4 % Eosinophils % 1.7 % Basophils % 0.2 % Nucleated Red Blood Cells % 0.0 /100WBC Neutrophils # 8.8 10^3/ul Lymphocytes # 1.0 10^3/ul Monocytes # 0.0 10^3/ul Eosinophils # 0.0 10^3/ul Basophils # 0.0 10^3/ul Nucleated Red Blood Cells # 0.0 10^3/ul Sodium Level 140 mmol/L Potassium Level 3.9 mmol/L Chloride Level 111 mmol/L Carbon Dioxide Level 22 mmol/L Anion Gap 7 Blood Urea Nitrogen 14 mg/dl Creatinine 0.51 mg/dl Est Glomerular Filtrat Rate mL/min > 60 mL/min Glucose Level 116 mg/dl Calcium Level 8.9 mg/dl Total Bilirubin 1.7 mg/dl Direct Bilirubin 0.00 mg/dl Indirect Bilirubin 1.7 mg/dl Aspartate Amino Transf (AST/SGOT) 37 IU/L Alanine Aminotransferase (ALT/SGPT) 31 IU/L Alkaline Phosphatase 90 IU/L Total Protein 6.6 g/dl Albumin 3.5 g/dl Globulin 3.10 g/dl Albumin/Globulin Ratio 1.12 Amylase Level 50 U/L Lipase 74 U/L Current Medications Medications Dose Sig/Vijay Start Time Status Last (Trade) Ordered Route PRN Stop Time Admin Dose Reason Admin Sodium 1,000 ml @ Q1H STAT 12/21/18 DC 12/21/18 Chloride 1,000 mls/hr IV 17:37 18:36 12/21/18 18:36 Pantoprazole 100 ml @ ONCE STAT 12/21/18 DC 12/21/18 80 mg/Sodium 400 mls/hr IVPB 17:37 18:53 Chloride 12/21/18 17:51 Pantoprazole 100 ml @ ONCE STAT 12/21/18 12/21/18 80 mg/Sodium 10 mls/hr IV 17:37 19:13 Chloride 12/22/18 03:36 Ondansetron 4 mg ONCE STAT 12/21/18 DC 12/21/18 HCl (Zofran IV 17:37 18:37 Inj) 12/21/18 17:39 1 mg ONCE STAT 12/21/18 DC 12/21/18 Hydromorphone IV 17:37 18:36 HCl 12/21/18 17:39 (Dilaudid) Procedures/MDM Patient's hemoglobin hematocrit are 10 and 30. The patient will be admitted to the hospital for lower GI bleed. She had a CT scan but report is delayed because of the radiology service not able to give us reads at this time is some [employer] computer issues. I did speak with Dr. dominique GI will admit to the hospital and he will be consulting for colonoscopy and EGD. Departure Diagnosis: Primary Impression: Lower GI bleed Condition: Stable DAMI FAIRCHILD DO Dec 21, 2018 19:32
[2018-12-21] MEDS ORDERED: SOD CHLORIDE 0.9% 100 ML ONE (20:05)
[2018-12-21] MEDS ORDERED: IOHEXOL 300MG/ML 150 ML BTL ONE (20:05)
[2018-12-21] MEDS ORDERED: LIDOCAINE/MYLANTA 40 ML BTL ONE (20:07)
[2018-12-21] MEDS ORDERED: morphine 2 MG INJ IV PRN (20:30)
[2018-12-21] MEDS ORDERED: ACETAMINOPHEN 325 MG TAB PO PRN ×2 (20:30)
[2018-12-21] MEDS ORDERED: NACL 0.9% 3 ML SYG IV SCH (20:30)
[2018-12-21] MEDS ORDERED: ONDANSETRON 4 MG INJ IV PRN (20:30)
--- NOTE | 2018-12-21 21:07 | HP ---
Date/Time of Note Date/Time of Note DATE: 12/21/18 TIME: 21:05 Assessment/Plan VTE Prophylaxis SCD applied (from Ns): Yes Pharmacological prophylaxis: NA/contraindicated Pharm contraindication: low risk/ambulating Assessment/Plan Hospital Course This is a 63-year-old female being admitted to the [facility] floor for: #1 lower GI bleed: Likely secondary to underlying cancer versus hemmorhoids. Hemoglobin 10. CT of the abdomen pelvis does show signs of the existing pancreatic cancer. There also appears to be signs of gastritis and colonic wall thickening indicating possible colitis. At the current time we will put the patient on clear liquid diet. IV fluid hydration with normal saline. Protonix drip. Gastroenterology has already been consulted by the emergency department. Given patient's low platelet count of 70 we will transfuse 1 unit of platelets in preparation for possible EGD/colonoscopy. CBC every 6 hours and transfuse to maintain hgb greater than 7.5. #2 intractable abdominal pain: Secondary to underlying GI bleed, cancer. She was on Dilaudid 1 mg p.o. at home which has not been providing any relief for her. Will manage patient's pain at the current time with IV Dilaudid 1 mg every 3 hours, 1 mg every 4 hours breakthrough pain. Titrate as needed. Will consult pain management doctor Candi #2 pancreatic cancer: CT imaging noted. Has gone through chemotherapy. Followed by outpatient death claim examiner. Consider hematology consultation. #3 history of stomach cancer: Followed by hematology as an outpatient. #4 hypothyroidism: Continue levothyroxine check TSH #5 normocytic anemia: Secondary to underlying GI bleed and anemia of chronic disease secondary to cancer. Please see #1. #6 DVT GI prophylaxis: SCDs, Protonix CODE STATUS: DNR/DNI. I did explain to the family that patient's prognosis does appear poor. We will try to control her pain as best as we can. They do understand the mother's condition and if her symptoms do worsen consideration for hospice/comfort care will be discussed which they are understanding of. Further treatment strategy will be implemented as per the clinical course Result Diagram: 12/21/18 1840 12/21/18 1840 Results 24hrs Laboratory Tests Test 12/21/18 18:40 White Blood Count 10.1 # Red Blood Count 3.01 L Hemoglobin 10.4 L Hematocrit 30.3 L Mean Corpuscular Volume 100.7 Mean Corpuscular Hemoglobin 34.6 H Mean Corpuscular Hemoglobin Concent 34.3 Red Cell Distribution Width 14.2 Platelet Count 70 #L Mean Platelet Volume 11.8 H Neutrophils % 87.5 H Lymphocytes % 9.4 L Monocytes % 0.4 Eosinophils % 1.7 Basophils % 0.2 Nucleated Red Blood Cells % 0.0 Neutrophils # 8.8 H Lymphocytes # 1.0 Monocytes # 0.0 L Eosinophils # 0.0 Basophils # 0.0 Nucleated Red Blood Cells # 0.0 Sodium Level 140 Potassium Level 3.9 Chloride Level 111 H Carbon Dioxide Level 22 Anion Gap 7 Blood Urea Nitrogen 14 Creatinine 0.51 Est Glomerular Filtrat Rate mL/min > 60 Glucose Level 116 Calcium Level 8.9 Total Bilirubin 1.7 H Direct Bilirubin 0.00 Indirect Bilirubin 1.7 H Aspartate Amino Transf (AST/SGOT) 37 Alanine Aminotransferase (ALT/SGPT) 31 Alkaline Phosphatase 90 Total Protein 6.6 Albumin 3.5 Globulin 3.10 Albumin/Globulin Ratio 1.12 Amylase Level 50 Lipase 74 HPI/ROS Admit Date/Time Admit Date/Time Hx of Present Illness Chief complaint: Abdominal pain, rectal bleeding This is a very unfortunate 63-year-old female who has a history of stomach cancer and pancreatic cancer currently undergoing chemo treatment who presented to [facility] ER with complaints of rectal bleeding. Patient presents at the bedside with her children. Family reports that the patient has been dealing with abdominal pain for the last few weeks. She has been on p.o. Dilaudid at home with the pain being on and off. She also in the last couple of days had started noticing bright red blood per rectum. She does have a history of hemorrhoids in the past. Because her pain got worse and because of her bleeding she came into the ER at the discretion of her death claim examiner. At the bedside patient does appear to be uncomfortable and grabbing her abdomen. Family does report that she recently told her death claim examiner that she is considering not going through any further treatment for cancer. Hospice was mentioned as well as the possibility. Patient lost approximately 30 pounds in the last 6 months and she has had poor appetite. Patient is a DNR/DNI. Son did show a picture of the patient's bowel movement which did show bright red blood in the toilet. Allergies: Latex, morphine Medications: Dilaudid p.o. Protonix Tramadol Levothyroxine This is a patient who is 63-year-old female who is getting chemo currently for pancreatic cancer. She said this morning she started having some diffuse lower abdominal pain and had a urge to have a bowel movement and only blood came out with very little stool. She said the same thing happened last week. She has no nausea vomiting. She has no abdominal pain currently. She said this is h appened about 4 times over the past month. The patient does take Pepto-Bismol off and on his and has had black stool at time. She did take Pepto-Bismol today ROS Const: As per HPI Eyes : No pain discharge or redness or change in visual acuity ENT: No pain, sore throat, congestion, congestion, dysphagia or discharge Respiratory: No shortness of breath, cough, sputum, wheezing, or pleuritic pain Cardiovascular: No chest pain, palpitation, PND, or edema GI : As per HPI Genitourinary: No dysuria, hematuria, flank pain , discharge or CVA tenderness Musculoskeletal: No joint pain, back pain, neck pain, restricted range of motion in neck or joints Skin: No rash, bruising or hives Neuro: No headache, dizziness, syncope, seizure, focal weakness Endocrine: No polyuria, polydipsia, temperature intolerance Psych: No hallucination, depression, anxiety or suicidal ideation PMH/Family/Social Past Medical History ASTHMA, HX. OF BRONCHITIS, ANXIETY, DEPRESSION, HTN, stomach cancer, pancreatic CA, hemorrhoids, hypothyroidism Medications Current Medications Pantoprazole 80 mg/Sodium Chloride 100 ml @ 10 mls/hr ONCE STAT IV Last administered on 12/21/18at 19:13; Admin Dose 10 MLS/HR; Start 12/21/18 at 17:37; Stop 12/22/18 at 03:36 Ondansetron HCl (Zofran Inj) 4 mg BRIDGE ORDER PRN IV NAUSEA/VOMITING; Start 12/21/18 at 20:30; Stop 12/22/18 at 20:29 Acetaminophen (Tylenol Tab) 650 mg ER BRIDGE PRN PO .MILD PAIN 1-3 OR TEMP; Start 12/21/18 at 20:30; Stop 12/22/18 at 20:29 IV Flush (NS 3 ml) 3 ml PER PROTOCOL IV ; Start 12/21/18 at 20:30 Ondansetron HCl (Zofran Inj) 4 mg Q6H PRN IV NAUSEA/VOMITING; Start 12/21/18 at 20:30 Acetaminophen (Tylenol Tab) 650 mg Q6H PRN PO .PAIN 1-3 OR TEMP; Start 12/21/18 at 20:30 Morphine Sulfate (morphine) 2 mg Q4H PRN IV .SEVERE PAIN 7-10; Start 12/21/18 at 20:30 Coded Allergies: latex (Verified Allergy, Mild, 11/05/18) strawberry (Verified Allergy, Mild, 12/22/18) morphine (Verified Allergy, Unknown, 11/05/18) Past Surgical History HYSTERECTOMY, CHOLECYSTECTOMY,STOMACH SX.,LAPAROSCOPY, BACK SX.,C. TUNNEL, Port-A-Cath Family History Significant Family History: cancer (Mom: Pancreatic cancer) Social History Alcohol Use: none Smoking Status: Never smoker Drug Use: none Exam/Review of Systems Vital Signs Vitals Vital Signs Date Temp Pulse Resp B/P (MAP) Pulse Ox O2 O2 Flow FiO2 Time Delivery Rate 12/21/18 91 21 148/78 100 Room Air 19:44 (101) 12/21/18 97.9 16:01 Exam Exam General: Patient is currently lying in bed, she is moaning in pain and grabbing her stomach. HEENT: Atraumatic, normocephalic. The pupils are equal, round and reactive. Extraocular motor are intact Neck: Supple with full range of motion. No rigidity or meningismus Chest: Right chest Port-A-Cath Lungs: Clear to auscultation bilaterally no crackles rales or wheezing Heart: Sinus tachycardia Abdomen: Soft , generalized tenderness to palpation, bowel sounds are present. No guarding no rebound tenderness , Extremities: Normal to inspection, no edema no cyanosis Neurologic: Normal mental status, speech normal, cranial nerves II through XII are intact, motor and sensory are intact, Additional Comments PROCEDURE: CT Abdomen and pelvis with contrast. CLINICAL INDICATION: Abdominal pain. TECHNIQUE: CT scan of the abdomen and pelvis with contrast was performed on a multi-detector high-resolution CT scanner. The patient was scanned following the uncomplicated administration of 80 cc of Omnipaque 300 intravenous contrast. Coronal and sagittal reformatted images were obtained from the axial source images. Images were reviewed on a high-resolution PACS workstation. DICOM images are available. One or more of the following dose reduction techniques were used: - Automated exposure control. - Adjustment of the mA and/or kV according to patient size. - Use of iterative reconstruction technique. Exam CTD/vol = 7.63 mGy. Total exam DLP = 381.84 mGy-cm. COMPARISON: 08/31/2018. FINDINGS: Evaluation of the lung bases demonstrates no pleural or parenchymal disease. Abdomen: The liver is normal in size with no focal mass identified. The patient is status post cholecystectomy with mild dilatation of the biliary tree. The spleen is mildly enlarged. Again demonstrated is a poorly defined mass centered within the neck of the pancreas measuring 4.4 cm AP by 4.5 cm transverse by 3.5 cm sagittal. There is obscuration of the portal vein confluence and celiac artery. Bilateral adrenal glands are within normal limits. Bilateral kidneys are normal in size with symmetric enhancement. There is no focal mass, hydronephrosis or hydroureter. There is no retroperitoneal adenopathy. The abdominal aorta is of normal caliber with minimal scattered atherosclerotic calcifications. There is mild diffuse gastric wall thickening there is mild thickening of the colon. There is a small umbilical hernia containing fat. There is no bowel obstruction or free air. A normal appendix is partially visualized. There are scattered sigmoid diverticuli. There is no ascites. Pelvis: The bladder is unremarkable. The uterus is absent. There is no significant pelvic adenopathy or free fluid. Evaluation of the osseous structures demonstrates no suspicious lytic or blastic lesion. There is prior interbody fusion at L5-S1 with posterior stabilization with bilateral rods and pedicle screws. IMPRESSION: Poorly defined mass centered within the neck of the pancreas measuring 4.4 x 4.5 x 3.5 cm compared with pancreatic cancer, increased in size compared with 08/31/2018. There is obscuration of the portal vein confluence and celiac artery secondary to the mass. Status post cholecystectomy with mild dilatation of the biliary tree. Mild splenomegaly. Mild thickening of the stomach represents a nonspecific gastritis, unchanged from the prior study. Mild thickening of the colon represents nonspecific colitis. Scattered sigmoid diverticuli. .Ren Valdez MDMD Date Time Electronically viewed and signed by .Ren Valdez MD, on 12/21/2018 21:17 .T/ CC: DAMI FAIRCHILD DO [id number] RAUL CASH Dec 21, 2018 21:07
[2018-12-21 22:17] VITALS: BP 190/84; PULSE 77; RESP 20
[2018-12-21] MEDS ORDERED: HYDROmorphONE 0.5 MG/0.5 ML SYG IV PRN (22:30)
[2018-12-21] MEDS ORDERED: hydrALAzine 20 MG INJ IV PRN (22:30)
[2018-12-21 23:33] VITALS: BP 132/73; PULSE 111; RESP 20
[2018-12-22] MEDS ORDERED: HYDROmorphONE 1 MG/ML SYG IV PRN
[2018-12-22] MEDS ORDERED: HYDROmorphONE 2 MG/ML SYG IV PRN
[2018-12-22] MEDS: ONDANSETRON 4 MG INJ IV PRN ×2 (00:33→09:34)
[2018-12-22 02:08] VITALS: BP 126/70; PULSE 113; RESP 18
[2018-12-22] MEDS: PANTOPRAZOLE IV 80 MG in SOD CHLORIDE 0.9% 100 ML IV SCH ×3 (05:54→18:13)
[2018-12-22] MEDS: LEVOTHYROXINE 100 MCG TAB PO SCH (06:37)
[2018-12-22 08:21] VITALS: BP 132/69; PULSE 96; RESP 20
[2018-12-22] MEDS ORDERED: HYDROCODONE/APAP (10/325) TAB PO PRN (10:00)
--- NOTE | 2018-12-22 10:26 | CONS ---
Assessment/Plan Assessment/Plan Assessment/Plan (Daily) Assessment: Upper abdominal pain postprandial Nausea Hematochezia Pancreatic cancer -ongoing chemotherapy History of gastric cancer Normocytic anemia Hypothyroidism Plan: EGD/colonoscopy on Monday Continue clear liquid diet Monitor H&H Transfuse for hemoglobin less than 7.5 Tinea Protonix drip Start Levsin Start Reglan Patient seen in collaboration with Dr. Calvert Consultation Date/Type/Reason Admit Date/Time Date of Consultation: Dec 22, 2018 Type of Consult GI Reason for Consultation Abdominal pain/rectal bleeding Date/Time of Note DATE: 12/22/18 TIME: 10:16 Hx of Present Illness This is a 63-year-old female with a history of pancreatic and gastric cancer currently on treatment with chemotherapy who was admitted for rectal bleeding and worsening of abdominal pain. Patient describes the pain as periumbilical and above the umbilicus worsening with meals. Rectal bleeding has been on and off. Patient was scheduled for colonoscopy with Dr. Calvert but had to be rescheduled. CT of the abdomen shows mild thickening of the stomach and colon suggestive of gastritis and colitis. Hepatomegaly, pancreatic mass increased in size comparing to the last CT and colonic diverticulosis noted. Other medical history includes hypothyroidism. Patient is complaining of nausea, vomiting, abdominal pain with food started 2 months ago. Currently there is no evidence of hematemesis, vomiting, diarrhea or constipation. According to the son patient had a history of previous endoscopies and colonoscopies but unsure of the dates and findings. The plan is to proceed with EGD and colonoscopy. Risks and benefits of the procedure have been discussed with the son who is a DPOA. He is agreeable to the procedure. Gastrointestinal: no complaints (See HPI) Past Medical History Gastric and pancreatic cancer, hypothyroidism, normocytic anemia Home Meds Active Scripts Pantoprazole* (Protonix*) 40 Mg Tablet.dr, 40 MG PO DAILY, #10 TAB Prov:OBI JOHNSTON MD 11/05/18 Tramadol HCl (Tramadol HCl) 50 Mg Tablet, 50 MG PO Q6 PRN for PAIN, #10 TAB Prov:OBI JOHNSTON MD 11/05/18 Reported Medications Omeprazole* (Omeprazole*) 40 Mg Capsule., 1 CAP PO DAILY 08/31/18 Levothyroxine Sodium* (Levoxyl*) 100 Mcg Tablet, 100 MCG PO BEFORE BREAKFAST, #30 TAB 04/07/18 Medications Current Medications Ondansetron HCl (Zofran Inj) 4 mg BRIDGE ORDER PRN IV NAUSEA/VOMITING; Start 12/21/18 at 20:30; Stop 12/22/18 at 20:29 Acetaminophen (Tylenol Tab) 650 mg ER BRIDGE PRN PO .MILD PAIN 1-3 OR TEMP; Start 12/21/18 at 20:30; Stop 12/22/18 at 20:29 IV Flush (NS 3 ml) 3 ml PER PROTOCOL IV ; Start 12/21/18 at 20:30 Ondansetron HCl (Zofran Inj) 4 mg Q6H PRN IV NAUSEA/VOMITING Last administered on 12/22/18at 09:34; Admin Dose 4 MG; Start 12/21/18 at 20:30 Acetaminophen (Tylenol Tab) 650 mg Q6H PRN PO .PAIN 1-3 OR TEMP; Start 12/21/18 at 20:30 Pantoprazole 80 mg/Sodium Chloride 100 ml @ 10 mls/hr Q10H IV Last administered on 12/22/18at 05:54; Admin Dose 10 MLS/HR; Start 12/21/18 at 21:30 Hydralazine HCl (Apresoline) 10 mg Q4H PRN IV SBP>170 Last administered on 12/21/18at 22:44; Admin Dose 10 MG; Start 12/21/18 at 22:30 Levothyroxine Sodium (Synthroid) 100 mcg BEFORE BREAKFAST PO Last administered on 12/22/18at 06:37; Admin Dose 100 MCG; Start 12/22/18 at 07:00 Hydromorphone HCl (Dilaudid) 2 mg Q3H PRN IV SEVERE PAIN LEVEL 7-10; Start 12/22/18 at 10:00 Hydromorphone HCl (Dilaudid) 2 mg Q4H PRN IV BREAKTHROUGH PAIN; Start 12/22/18 at 12:00 Acetaminophen/ Hydrocodone Bitart ([employer] ()) 1 tab Q4H PRN PO MODERATE PAIN LEVEL 4-6; Start 12/22/18 at 10:00 Allergies: Coded Allergies: latex (Verified Allergy, Mild, 11/05/18) strawberry (Verified Allergy, Mild, 12/22/18) morphine (Verified Allergy, Unknown, 11/05/18) Past Surgical History Past Surgical Hx: cholecystectomy Social History Alcohol Use: none Smoking Status: Never smoker Drug Use: none Exam/Review of Systems Exam Vitals Vital Signs Date Temp Pulse Resp B/P (MAP) Pulse Ox O2 O2 Flow FiO2 Time Delivery Rate 12/22/18 98.6 96 20 132/69 99 08:21 (90) 12/21/18 Room Air 21:13 Intake and Output 12/21/18 12/21/18 12/22/18 1515:00 23:00 07:00 IntakeIntake Total 1100 ml 100 ml BalanceBalance 1100 ml 100 ml Exam PHYSICAL EXAMINATION: GENERAL: Well developed, cachectic, alert & oriented x 3, in no acute distress SKIN: No lesions, no stigmata chronic liver disease, no evidence of bleeding diathesis LYMPHATIC: No palpable lymphadenopathy. HEAD: Normocephalic, atraumatic, no tenderness. EYES: Pupils equal reactive to light and accommodation, full extraocular movements, sclera clear, non-icteric, no discharge. EARS/NOSE AND THROAT: Ears normal, nose normal, oropharynx normal, oral membranes well hydrated without lesions. NECK: Supple, no masses, thyroid normal, JVP within normal limits, carotids normal without bruits. CHEST: Inspection within normal limits. CARDIOVASCULAR: Heart: Regular rate and rhythm, no murmurs, gallops or rubs. Peripheral pulses present within normal limits, no cyanosis, clubbing or edemas. No pulsatile abdominal mass RESPIRATORY: Lungs clear to auscultation and percussion, no wheezing, no rubs GASTROINTESTINAL AND LIVER: Abdomen: Soft, periumbilical tenderness, non- distended, no hernias, no masses, no organomegaly, mild ascites, no guarding, no rebound tenderness, normoactive bowel sounds. Rectal: Deferred. GENITOURINARY: Female genitalia within normal limits. EXTREMITIES: No cyanosis, clubbing or edema. Results Result Diagram: 12/22/18 0541 12/21/18 1840 Results 24hrs Laboratory Tests Test 12/21/18 18:40 12/22/18 00:29 12/22/18 02:28 12/22/18 05:40 White Blood Count 10.1 # 21.9 #H Red Blood Count 3.01 L 3.00 L Hemoglobin 10.4 L 10.4 L Hematocrit 30.3 L 30.5 L Mean Corpuscular 100.7 101.7 H Volume Mean Corpuscular 34.6 H 34.7 H Hemoglobin Mean Corpuscular 34.3 34.1 Hemoglobin Concent Red Cell 14.2 14.5 Distribution Width Platelet Count 70 #L 60 L Mean Platelet Volume 11.8 H 12.8 H Neutrophils % 87.5 H Lymphocytes % 9.4 L Monocytes % 0.4 Eosinophils % 1.7 Basophils % 0.2 Nucleated Red Blood 0.0 0.0 Cells % Neutrophils # 8.8 H Lymphocytes # 1.0 Monocytes # 0.0 L Eosinophils # 0.0 Basophils # 0.0 Nucleated Red Blood 0.0 Cells # Prothrombin Time 15.5 H Prothrombin Time 1.2 Ratio INR International 1.22 Normalized Ratio Activated 46.8 H Partial Thromboplast Time Sodium Level 140 Potassium Level 3.9 Chloride Level 111 H Carbon Dioxide Level 22 Anion Gap 7 Blood Urea Nitrogen 14 Creatinine 0.51 Est Glomerular > 60 Filtrat Rate mL/min Glucose Level 116 Calcium Level 8.9 Total Bilirubin 1.7 H Direct Bilirubin 0.00 Indirect Bilirubin 1.7 H Aspartate Amino 37 Transf (AST/SGOT) Alanine 31 Aminotransferase (AL T/SGPT) Alkaline Phosphatase 90 Total Protein 6.6 Albumin 3.5 Globulin 3.10 Albumin/Globulin 1.12 Ratio Amylase Level 50 Lipase 74 Immature 4.000 H Granulocytes % Segmented 64 Neutrophils % (Manual) Band Neutrophils % 20 H (Manual) Lymphocytes % 8 L (Manual) Eosinophils % 2 (Manual) Metamyelocytes % 1 H (manual) Myelocytes % 5 H (Manual) Immature 0.870 H Granulocytes # Neutrophils # 15.0 H (Manual) Band Neutrophils # 4.3 H Lymphocytes (Manual) 1.7 Metamyelocytes # 0.2 H Myelocytes # 1.0 H Platelet Estimate DECREASED Giant Platelets 1 H Poikilocytosis 2+ Anisocytosis 2+ Macrocytosis 2+ Lactic Acid Level 1.8 Hemoglobin A1c 5.4 Magnesium Level 2.2 Triglycerides Level 67 Cholesterol Level 107 LDL Cholesterol, 55 Calculated HDL Cholesterol 39 Cholesterol/HDL 2.7 Ratio Thyroid Stimulating 2.710 Hormone (TSH) Test 12/22/18 05:41 White Blood Count 18.9 H Red Blood Count 2.68 L Hemoglobin 9.4 L Hematocrit 27.5 L Mean Corpuscular 102.6 H Volume Mean Corpuscular 35.1 H Hemoglobin Mean Corpuscular 34.2 Hemoglobin Concent Red Cell 14.6 H Distribution Width Platelet Count 55 L Mean Platelet Volume 12.7 H Immature 2.300 H Granulocytes % Neutrophils % Segmented 85 H Neutrophils % (Manual) Band Neutrophils % 8 H (Manual) Lymphocytes % Lymphocytes % 4 L (Manual) Monocytes % Eosinophils % Basophils % Basophils % (Manual) 1 Metamyelocytes % 2 H (manual) Nucleated Red Blood 0.0 Cells % Immature 0.430 H Granulocytes # Neutrophils # Neutrophils # 16.3 H (Manual) Band Neutrophils # 1.5 H Lymphocytes (Manual) 0.7 L Lymphocytes # Monocytes # Eosinophils # Basophils # Basophils # (Manual) 0.1 H Metamyelocytes # 0.3 H Nucleated Red Blood Cells # White Cell @See below Morphology Comment Platelet Estimate DECREASED Poikilocytosis 3+ Anisocytosis 1+ Macrocytosis 1+ Ovalocytes 2+ Schistocytes 1+ Red Cell Morphology @See below Comment Medications Medication Current Medications Ondansetron HCl (Zofran Inj) 4 mg BRIDGE ORDER PRN IV NAUSEA/VOMITING; Start 12/21/18 at 20:30; Stop 12/22/18 at 20:29 Acetaminophen (Tylenol Tab) 650 mg ER BRIDGE PRN PO .MILD PAIN 1-3 OR TEMP; Start 12/21/18 at 20:30; Stop 12/22/18 at 20:29 IV Flush (NS 3 ml) 3 ml PER PROTOCOL IV ; Start 12/21/18 at 20:30 Ondansetron HCl (Zofran Inj) 4 mg Q6H PRN IV NAUSEA/VOMITING Last administered on 12/22/18at 09:34; Admin Dose 4 MG; Start 12/21/18 at 20:30 Acetaminophen (Tylenol Tab) 650 mg Q6H PRN PO .PAIN 1-3 OR TEMP; Start 12/21/18 at 20:30 Pantoprazole 80 mg/Sodium Chloride 100 ml @ 10 mls/hr Q10H IV Last administer ed on 12/22/18at 05:54; Admin Dose 10 MLS/HR; Start 12/21/18 at 21:30 Hydralazine HCl (Apresoline) 10 mg Q4H PRN IV SBP>170 Last administered on 12/21/18at 22:44; Admin Dose 10 MG; Start 12/21/18 at 22:30 Levothyroxine Sodium (Synthroid) 100 mcg BEFORE BREAKFAST PO Last administered on 12/22/18at 06:37; Admin Dose 100 MCG; Start 12/22/18 at 07:00 Hydromorphone HCl (Dilaudid) 2 mg Q3H PRN IV SEVERE PAIN LEVEL 7-10; Start 12/22/18 at 10:00 Hydromorphone HCl (Dilaudid) 2 mg Q4H PRN IV BREAKTHROUGH PAIN; Start 12/22/18 at 12:00 Acetaminophen/ Hydrocodone Bitart ([employer] (325)) 1 tab Q4H PRN PO MODERATE PAIN LEVEL 4-6; Start 12/22/18 at 10:00 JEFF BOYD NP Dec 22, 2018 10:26
[2018-12-22] MEDS ORDERED: DIPHENHYDRAMINE 25 MG CAP PO PRN (12:18)
[2018-12-22] MEDS: METOCLOPRAMIDE 10 MG INJ IV SCH ×3 (12:26→23:40)
[2018-12-22] MEDS: HYOSCYAMINE 0.125 MG SUBL TAB PO SCH ×2 (13:08→22:08)
[2018-12-22] MEDS: HYDROmorphONE 2 MG/ML SYG IV PRN ×3 (13:10→23:41)
--- NOTE | 2018-12-22 14:38 | PN ---
Date/Time of Note Date/Time of Note DATE: 12/22/18 TIME: 14:33 Assessment/Plan VTE Prophylaxis Risk score (from Ns)>0 risk: 8 [place] [facility] [place] Pharmacological prophylaxis: NA/contraindicated Pharm contraindication: bleeding Lines/Catheters [facility] Assessment/Plan Assessment/Plan 63 yo woman with pancreatic cancer who presents with intractable pain and GI bleed. #1 lower GI bleed: - She reports bright red blood and has history of hemorrhoids, so this is most likely. - However this may be masking another GI bleed so will plan for EGD+colonoscopy. - Dr. Calvert's group consulted. #2 intractable abdominal pain: - Due to pancreatic cancer - on Dilaudid 1 mg p.o. at home which has not been providing any relief for her. - Will manage patient's pain at the current time with IV Dilaudid 1 mg every 3 hours, 1 mg every 4 hours breakthrough pain. Titrate as needed. #3 pancreatic cancer: Has gone through chemotherapy. Followed by outpatient commercial real estate attorney. #4 history of stomach cancer: Followed by hematology as an outpatient. #5 hypothyroidism: Continue levothyroxine check TSH #6 normocytic anemia: Secondary to underlying GI bleed and anemia of chronic disease secondary to cancer. Please see #1. #7 DVT GI prophylaxis: SCDs, Protonix CODE STATUS: DNR/DNI. I did explain to the family that patient's prognosis does appear poor. We will try to control her pain as best as we can. They do understand the mother's condition and if her symptoms do worsen consideration for hospice/comfort care will be discussed which they are understanding of. Result Diagram: 12/22/18 0541 12/21/18 1840 Subjective 24 Hr Interval Summary Free Text/Dictation The patient is a little confused. She repeats herself frequently, she attempts to introduce her medical problems from events that started months ago and then loses her train of thought. Per family at bedside she is mentally at baseline. Also she has lots of pruritis. Overall doing well. Pain adequately controlled. No acute active bleeding. Exam/Review of Systems Exam Vitals Vital Signs Date Temp Pulse Resp B/P (MAP) Pulse Ox O2 O2 Flow FiO2 Time Delivery Rate 12/22/18 98.6 96 20 132/69 99 08:21 (90) 12/21/18 Room Air 21:13 Intake and Output 12/21/18 12/21/18 12/22/18 1515:00 23:00 07:00 IntakeIntake Total 1100 ml 100 ml BalanceBalance 1100 ml 100 ml Exam General: Patient is currently lying in bed, sitting up, awake, conversant. HEENT: Atraumatic, normocephalic. The pupils are equal, round and reactive. Extraocular motor are intact Neck: Supple with full range of motion. No rigidity or meningismus Chest: Right chest Port-A-Cath Lungs: Clear to auscultation bilaterally no crackles rales or wheezing Heart: Sinus tachycardia Abdomen: Soft , generalized tenderness to palpation, bowel sounds are present. No guarding no rebound tenderness , Extremities: Normal to inspection, no edema no cyanosis Results Results 24hrs Laboratory Tests Test 12/21/18 18:40 12/22/18 00:29 12/22/18 02:28 12/22/18 05:40 White Blood Count 10.1 # 21.9 #H Red Blood Count 3.01 L 3.00 L Hemoglobin 10.4 L 10.4 L Hematocrit 30.3 L 30.5 L Mean Corpuscular 100.7 101.7 H Volume Mean Corpuscular 34.6 H 34.7 H Hemoglobin Mean Corpuscular 34.3 34.1 Hemoglobin Concent Red Cell 14.2 14.5 Distribution Width Platelet Count 70 #L 60 L Mean Platelet Volume 11.8 H 12.8 H Neutrophils % 87.5 H Lymphocytes % 9.4 L Monocytes % 0.4 Eosinophils % 1.7 Basophils % 0.2 Nucleated Red Blood 0.0 0.0 Cells % Neutrophils # 8.8 H Lymphocytes # 1.0 Monocytes # 0.0 L Eosinophils # 0.0 Basophils # 0.0 Nucleated Red Blood 0.0 Cells # Prothrombin Time 15.5 H Prothrombin Time 1.2 Ratio INR International 1.22 Normalized Ratio Activated 46.8 H Partial Thromboplast Time Sodium Level 140 Potassium Level 3.9 Chloride Level 111 H Carbon Dioxide Level 22 Anion Gap 7 Blood Urea Nitrogen 14 Creatinine 0.51 Est Glomerular > 60 Filtrat Rate mL/min Glucose Level 116 Calcium Level 8.9 Total Bilirubin 1.7 H Direct Bilirubin 0.00 Indirect Bilirubin 1.7 H Aspartate Amino 37 Transf (AST/SGOT) Alanine 31 Aminotransferase (AL T/SGPT) Alkaline Phosphatase 90 Total Protein 6.6 Albumin 3.5 Globulin 3.10 Albumin/Globulin 1.12 Ratio Amylase Level 50 Lipase 74 Immature 4.000 H Granulocytes % Segmented 64 Neutrophils % (Manual) Band Neutrophils % 20 H (Manual) Lymphocytes % 8 L (Manual) Eosinophils % 2 (Manual) Metamyelocytes % 1 H (manual) Myelocytes % 5 H (Manual) Immature 0.870 H Granulocytes # Neutrophils # 15.0 H (Manual) Band Neutrophils # 4.3 H Lymphocytes (Manual) 1.7 Metamyelocytes # 0.2 H Myelocytes # 1.0 H Platelet Estimate DECREASED Giant Platelets 1 H Poikilocytosis 2+ Anisocytosis 2+ Macrocytosis 2+ Lactic Acid Level 1.8 Hemoglobin A1c 5.4 Magnesium Level 2.2 Triglycerides Level 67 Cholesterol Level 107 LDL Cholesterol, 55 Calculated HDL Cholesterol 39 Cholesterol/HDL 2.7 Ratio Thyroid Stimulating 2.710 Hormone (TSH) Test 12/22/18 05:41 12/22/18 06:40 White Blood Count 18.9 H Red Blood Count 2.68 L Hemoglobin 9.4 L Hematocrit 27.5 L Mean Corpuscular 102.6 H Volume Mean Corpuscular 35.1 H Hemoglobin Mean Corpuscular 34.2 Hemoglobin Concent Red Cell 14.6 H Distribution Width Platelet Count 55 L Mean Platelet Volume 12.7 H Immature 2.300 H Granulocytes % Neutrophils % Segmented 85 H Neutrophils % (Manual) Band Neutrophils % 8 H (Manual) Lymphocytes % Lymphocytes % 4 L (Manual) Monocytes % Eosinophils % Basophils % Basophils % (Manual) 1 Metamyelocytes % 2 H (manual) Nucleated Red Blood 0.0 Cells % Immature 0.430 H Granulocytes # Neutrophils # Neutrophils # 16.3 H (Manual) Band Neutrophils # 1.5 H Lymphocytes (Manual) 0.7 L Lymphocytes # Monocytes # Eosinophils # Basophils # Basophils # (Manual) 0.1 H Metamyelocytes # 0.3 H Nucleated Red Blood Cells # White Cell @See below Morphology Comment Platelet Estimate DECREASED Poikilocytosis 3+ Anisocytosis 1+ Macrocytosis 1+ Ovalocytes 2+ Schistocytes 1+ Red Cell Morphology @See below Comment Urine Color YELLOW Urine Clarity CLEAR Urine pH 6.0 Urine Specific 1.046 H [place] Urine Ketones TRACE A Urine Nitrite NEGATIVE Urine Bilirubin NEGATIVE Urine Urobilinogen NEGATIVE Urine Leukocyte NEGATIVE Esterase Urine Hemoglobin NEGATIVE Urine Glucose NEGATIVE Urine Total Protein NEGATIVE Medications Medication Current Medications Ondansetron HCl (Zofran Inj) 4 mg BRIDGE ORDER PRN IV NAUSEA/VOMITING; Start 12/21/18 at 20:30; Stop 12/22/18 at 20:29 Acetaminophen (Tylenol Tab) 650 mg ER BRIDGE PRN PO .MILD PAIN 1-3 OR TEMP; Start 12/21/18 at 20:30; Stop 12/22/18 at 20:29 IV Flush (NS 3 ml) 3 ml PER PROTOCOL IV ; Start 12/21/18 at 20:30 Ondansetron HCl (Zofran Inj) 4 mg Q6H PRN IV NAUSEA/VOMITING Last administered on 12/22/18at 09:34; Admin Dose 4 MG; Start 12/21/18 at 20:30 Acetaminophen (Tylenol Tab) 650 mg Q6H PRN PO .PAIN 1-3 OR TEMP; Start 12/21/18 at 20:30 Pantoprazole 80 mg/Sodium Chloride 100 ml @ 10 mls/hr Q10H IV Last administered on 12/22/18at 05:54; Admin Dose 10 MLS/HR; Start 12/21/18 at 21:30 Hydralazine HCl (Apresoline) 10 mg Q4H PRN IV SBP>170 Last administered on 12/21/18at 22:44; Admin Dose 10 MG; Start 12/21/18 at 22:30 Levothyroxine Sodium (Synthroid) 100 mcg BEFORE BREAKFAST PO Last administered on 12/22/18at 06:37; Admin Dose 100 MCG; Start 12/22/18 at 07:00 Hydromorphone HCl (Dilaudid) 2 mg Q3H PRN IV SEVERE PAIN LEVEL 7-10 Last administered on 12/22/18at 13:10; Admin Dose 2 MG; Start 12/22/18 at 10:00 Hydromorphone HCl (Dilaudid) 2 mg Q4H PRN IV BREAKTHROUGH PAIN; Start 12/22/18 at 12:00 Acetaminophen/ Hydrocodone Bitart ([place] (10/325)) 1 tab Q4H PRN PO MODERATE PAIN LEVEL 4-6; Start 12/22/18 at 10:00 Hyoscyamine (Levsin (Sl)) 0.125 mg Q8 PO Last administered on 12/22/18at 13:08; Admin Dose 0.125 MG; Start 12/22/18 at 14:00 Metoclopramide HCl (Reglan) 10 mg Q6 IV Last administered on 12/22/18at 12:26; Admin Dose 10 MG; Start 12/22/18 at 12:00 Diphenhydramine HCl (Benadryl) 25 mg Q6H PRN PO ITCHING; Start 12/22/18 at 12:18 SE LIND MD Dec 22, 2018 14:38
[2018-12-22 14:56] VITALS: BP 121/62; PULSE 103; RESP 18
[2018-12-22 20:09] VITALS: BP 153/71; PULSE 98; RESP 18
[2018-12-23 02:21] VITALS: BP 121/62; PULSE 92; RESP 20
[2018-12-23] MEDS: PANTOPRAZOLE IV 80 MG in SOD CHLORIDE 0.9% 100 ML IV SCH ×2 (04:14→14:08)
[2018-12-23] MEDS: HYDROmorphONE 2 MG/ML SYG IV PRN ×4 (04:19→20:03)
[2018-12-23] MEDS: LEVOTHYROXINE 100 MCG TAB PO SCH (06:24)
[2018-12-23] MEDS: METOCLOPRAMIDE 10 MG INJ IV SCH ×3 (06:24→17:52)
[2018-12-23] MEDS: HYOSCYAMINE 0.125 MG SUBL TAB PO SCH ×2 (06:24→14:08)
[2018-12-23 07:50] VITALS: BP 127/62; PULSE 89; RESP 17
--- NOTE | 2018-12-23 11:03 | PN ---
Date/Time of Note Date/Time of Note DATE: 12/23/18 TIME: 11:01 Assessment/Plan VTE Prophylaxis Risk score (from Ns)>0 risk: 7 SCD applied (from [facility] [place]): Yes Pharmacological prophylaxis: NA/contraindicated Pharm contraindication: bleeding Lines/[facility] Assessment/Plan Assessment/Plan 63 yo woman with pancreatic cancer who presents with intractable pain and GI bleed. #1 lower GI bleed: - She reports bright red blood and has history of hemorrhoids, so this is most likely. - However this may be masking another GI bleed so will plan for EGD+colonoscopy. - Dr. Calvert's group consulted, plan for procedure on Monday. #2 intractable abdominal pain: - Due to pancreatic cancer - on Dilaudid 1 mg p.o. at home which has not been providing any relief for her. - Will manage patient's pain at the current time with IV Dilaudid 1 mg every 3 hours, 1 mg every 4 hours breakthrough pain. Titrate as needed. #3 pancreatic cancer: Has gone through chemotherapy. 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 #4 history of stomach cancer: Followed by hematology as an outpatient. #5 hypothyroidism: Continue levothyroxine check TSH #6 normocytic anemia: Secondary to underlying GI bleed and anemia of chronic disease secondary to cancer. Please see #1. #7 DVT GI prophylaxis: SCDs, Protonix CODE STATUS: DNR/DNI. Family is amenable to hospice care if condition worsens. Result Diagram: 12/22/18 1408 12/21/18 1840 Subjective 24 Hr Interval Summary Free Text/Dictation No acute overnight events. Pain well controlled. Family at bedside; I informed everyone of the plan and her status Exam/Review of Systems Exam Vitals Vital Signs Date Temp Pulse Resp B/P (MAP) Pulse Ox O2 O2 Flow FiO2 Time Delivery Rate 12/23/18 98.7 89 17 127/62 100 Room Air 07:50 (83) Intake and Output 12/22/18 12/22/18 12/23/18 1515:00 23:00 07:00 IntakeIntake Total 480 ml 780 ml 320 ml OutputOutput Total 300 ml BalanceBalance 180 ml 780 ml 320 ml Exam General: Patient is currently lying in bed, sitting up, awake, conversant. HEENT: Atraumatic, normocephalic. The pupils are equal, round and reactive. Extraocular motor are intact Neck: Supple with full range of motion. No rigidity or meningismus Chest: Right chest Port-A-Cath Lungs: Clear to auscultation bilaterally no crackles rales or wheezing Heart: Sinus tachycardia Abdomen: Soft , generalized tenderness to palpation, bowel sounds are present. No guarding no rebound tenderness , Extremities: Normal to inspection, no edema no cyanosis Results Results 24hrs Laboratory Tests Test 12/22/18 14:08 White Blood Count 13.5 #H Red Blood Count 2.58 L Hemoglobin 9.0 L Hematocrit 26.7 L Mean Corpuscular Volume 103.5 H Mean Corpuscular Hemoglobin 34.9 H Mean Corpuscular Hemoglobin Concent 33.7 Red Cell Distribution Width 14.9 H Platelet Count 74 #L Mean Platelet Volume 12.3 H Immature Granulocytes % 0.900 H Neutrophils % Segmented Neutrophils % (Manual) 74 Band Neutrophils % (Manual) 18 H Lymphocytes % Lymphocytes % (Manual) 7 L Monocytes % Eosinophils % Eosinophils % (Manual) 1 Basophils % Nucleated Red Blood Cells % 0.0 Immature Granulocytes # 0.120 H Neutrophils # Neutrophils # (Manual) 10.3 H Band Neutrophils # 2.4 H Lymphocytes (Manual) 0.9 Lymphocytes # Monocytes # Eosinophils # Basophils # Nucleated Red Blood Cells # Platelet Estimate DECREASED Giant Platelets 3 H Poikilocytosis 2+ Anisocytosis 1+ Macrocytosis 1+ Medications Medication Current Medications IV Flush (NS 3 ml) 3 ml PER PROTOCOL IV ; Start 12/21/18 at 20:30 Ondansetron HCl (Zofran Inj) 4 mg Q6H PRN IV NAUSEA/VOMITING Last administered on 12/22/18at 09:34; Admin Dose 4 MG; Start 12/21/18 at 20:30 Acetaminophen (Tylenol Tab) 650 mg Q6H PRN PO .PAIN 1-3 OR TEMP; Start 12/21/18 at 20:30 Pantoprazole 80 mg/Sodium Chloride 100 ml @ 10 mls/hr Q10H IV Last administered on 12/23/18at 04:14; Admin Dose 10 MLS/HR; Start 12/21/18 at 21:30 Hydralazine HCl (Apresoline) 10 mg Q4H PRN IV SBP>170 Last administered on 12/21/18at 22:44; Admin Dose 10 MG; Start 12/21/18 at 22:30 Levothyroxine Sodium (Synthroid) 100 mcg BEFORE BREAKFAST PO Last administered on 12/23/18 06:24; Admin Dose 100 MCG; Start 12/22/18 at 07:00 Hydromorphone HCl (Dilaudid) 2 mg Q3H PRN IV SEVERE PAIN LEVEL 7-10 Last administered on 12/23/18 04:19; Admin Dose 2 MG; Start 12/22/18 at 10:00 Hydromorphone HCl (Dilaudid) 2 mg Q4H PRN IV BREAKTHROUGH PAIN; Start 12/22/18 at 12:00 Acetaminophen/ Hydrocodone Bitart ([place] (10/325)) 1 tab Q4H PRN PO MODERATE PAIN LEVEL 4-6; Start 12/22/18 at 10:00 Hyoscyamine (Levsin (Sl)) 0.125 mg Q8 PO Last administered on 12/23/18 06:24; Admin Dose 0.125 MG; Start 12/22/18 at 14:00 Metoclopramide HCl (Reglan) 10 mg Q6 IV Last administered on 12/23/18 06:24; Admin Dose 10 MG; Start 12/22/18 at 12:00 Diphenhydramine HCl (Benadryl) 25 mg Q6H PRN PO ITCHING; Start 12/22/18 at 12:18 SE LIND MD Dec 23, 2018 11:03
[2018-12-23] MEDS ORDERED: BISACODYL (EC) 5 MG TAB PO ONE (12:30)
--- NOTE | 2018-12-23 12:31 | PN ---
Date/Time of Note Date/Time of Note DATE: 12/23/18 TIME: 12:27 Assessment/Plan VTE Prophylaxis Risk score (from Ns)>0 risk: 7 SCD applied (from Ns): Yes Pharmacological prophylaxis: NA/contraindicated Pharm contraindication: bleeding Lines[facility] Assessment/Plan Assessment/Plan Assessment: Upper abdominal pain postprandial Nausea Hematochezia Pancreatic cancer -ongoing chemotherapy Thrombocytopenia History of gastric cancer Normocytic anemia Hypothyroidism Plan: EGD/colonoscopy on Monday Clear liquid diet Check INR with a.m. Labs Monitor H&H Transfuse for hemoglobin less than 7.5 Continue Protonix drip Continue Levsin and Reglan Patient seen in collaboration with Dr. Calvert Subjective: Patient states nausea has improved. Denies abdominal pain. No stool today. No evidence of overt GI bleeding. Hemoglobin is slightly lower today 9.0. Discussed the plan with the patient and the family at the bedside to do an EGD and colonoscopy tomorrow. Risks and benefits of the procedure have been reviewed. Patient is agreeable to the procedure. Continue observation. PHYSICAL EXAMINATION: GENERAL: Ill-appearing, alert & oriented x 3, in no acute distress SKIN: No lesions, no stigmata chronic liver disease, no evidence of bleeding diathesis LYMPHATIC: No palpable lymphadenopathy. HEAD: Normocephalic, atraumatic, no tenderness. EYES: Pupils equal reactive to light and accommodation, full extraocular movements, sclera clear, non-icteric, no discharge. EARS/NOSE AND THROAT: Ears normal, nose normal, oropharynx normal, oral membranes well hydrated without lesions. NECK: Supple, no masses, thyroid normal, JVP within normal limits, carotids normal without bruits. CHEST: Inspection within normal limits. CARDIOVASCULAR: Heart: Regular rate and rhythm, no murmurs, gallops or rubs. Peripheral pulses present within normal limits, no cyanosis, clubbing or edemas. No pulsatile abdominal mass RESPIRATORY: Lungs clear to auscultation and percussion, no wheezing, no rubs GASTROINTESTINAL AND LIVER: Abdomen: Soft, non tenderness, non-distended, no hernias, no masses, no organomegaly, no ascites, no guarding, no rebound tend erness, normoactive bowel sounds. Rectal: Deferred. GENITOURINARY: Female genitalia within normal limits. EXTREMITIES: No cyanosis, clubbing or edema. Result Diagram: 12/22/18 1408 12/21/18 1840 Results 24hrs Laboratory Tests Test 12/22/18 14:08 White Blood Count 13.5 #H Red Blood Count 2.58 L Hemoglobin 9.0 L Hematocrit 26.7 L Mean Corpuscular Volume 103.5 H Mean Corpuscular Hemoglobin 34.9 H Mean Corpuscular Hemoglobin Concent 33.7 Red Cell Distribution Width 14.9 H Platelet Count 74 #L Mean Platelet Volume 12.3 H Immature Granulocytes % 0.900 H Neutrophils % Segmented Neutrophils % (Manual) 74 Band Neutrophils % (Manual) 18 H Lymphocytes % Lymphocytes % (Manual) 7 L Monocytes % Eosinophils % Eosinophils % (Manual) 1 Basophils % Nucleated Red Blood Cells % 0.0 Immature Granulocytes # 0.120 H Neutrophils # Neutrophils # (Manual) 10.3 H Band Neutrophils # 2.4 H Lymphocytes (Manual) 0.9 Lymphocytes # Monocytes # Eosinophils # Basophils # Nucleated Red Blood Cells # Platelet Estimate DECREASED Giant Platelets 3 H Poikilocytosis 2+ Anisocytosis 1+ Macrocytosis 1+ CC: HALLIE CALVERT MD ; Exam/Review of Systems Exam Vitals Vital Signs Date Temp Pulse Resp B/P (MAP) Pulse Ox O2 O2 Flow FiO2 Time Delivery Rate 12/23/18 98.7 89 17 127/62 100 Room Air 07:50 (83) Intake and Output 12/22/18 12/22/18 12/23/18 1515:00 23:00 07:00 IntakeIntake Total 480 ml 780 ml 320 ml OutputOutput Total 300 ml BalanceBalance 180 ml 780 ml 320 ml Results Results 24hrs Laboratory Tests Test 12/22/18 14:08 White Blood Count 13.5 #H Red Blood Count 2.58 L Hemoglobin 9.0 L Hematocrit 26.7 L Mean Corpuscular Volume 103.5 H Mean Corpuscular Hemoglobin 34.9 H Mean Corpuscular Hemoglobin Concent 33.7 Red Cell Distribution Width 14.9 H Platelet Count 74 #L Mean Platelet Volume 12.3 H Immature Granulocytes % 0.900 H Neutrophils % Segmented Neutrophils % (Manual) 74 Band Neutrophils % (Manual) 18 H Lymphocytes % Lymphocytes % (Manual) 7 L Monocytes % Eosinophils % Eosinophils % (Manual) 1 Basophils % Nucleated Red Blood Cells % 0.0 Immature Granulocytes # 0.120 H Neutrophils # Neutrophils # (Manual) 10.3 H Band Neutrophils # 2.4 H Lymphocytes (Manual) 0.9 Lymphocytes # Monocytes # Eosinophils # Basophils # Nucleated Red Blood Cells # Platelet Estimate DECREASED Giant Platelets 3 H Poikilocytosis 2+ Anisocytosis 1+ Macrocytosis 1+ Medications Medication Current Medications IV Flush (NS 3 ml) 3 ml PER PROTOCOL IV ; Start 12/21/18 at 20:30 Ondansetron HCl (Zofran Inj) 4 mg Q6H PRN IV NAUSEA/VOMITING Last administered on 12/22/18at 09:34; Admin Dose 4 MG; Start 12/21/18 at 20:30 Acetaminophen (Tylenol Tab) 650 mg Q6H PRN PO .PAIN 1-3 OR TEMP; Start 12/21/18 at 20:30 Pantoprazole 80 mg/Sodium Chloride 100 ml @ 10 mls/hr Q10H IV Last administered on 12/23/18at 04:14; Admin Dose 10 MLS/HR; Start 12/21/18 at 21:30 Hydralazine HCl (Apresoline) 10 mg Q4H PRN IV SBP>170 Last administered on 12/21/18at 22:44; Admin Dose 10 MG; Start 12/21/18 at 22:30 Levothyroxine Sodium (Synthroid) 100 mcg BEFORE BREAKFAST PO Last administered on 12/23/18at 06:24; Admin Dose 100 MCG; Start 12/22/18 at 07:00 Hydromorphone HCl (Dilaudid) 2 mg Q3H PRN IV SEVERE PAIN LEVEL 7-10 Last administered on 12/23/18at 11:00; Admin Dose 2 MG; Start 12/22/18 at 10:00 Hydromorphone HCl (Dilaudid) 2 mg Q4H PRN IV BREAKTHROUGH PAIN; Start 12/22/18 at 12:00 Acetaminophen/ Hydrocodone Bitart ([place] (10/325)) 1 tab Q4H PRN PO MODERATE PAIN LEVEL 4-6; Start 12/22/18 at 10:00 Hyoscyamine (Levsin (Sl)) 0.125 mg Q8 PO Last administered on 12/23/18at 06:24; Admin Dose 0.125 MG; Start 12/22/18 at 14:00 Metoclopramide HCl (Reglan) 10 mg Q6 IV Last administered on 12/23/18at 11:04; Admin Dose 10 MG; Start 12/22/18 at 12:00 Diphenhydramine HCl (Benadryl) 25 mg Q6H PRN PO ITCHING; Start 12/22/18 at 12:18 Bisacodyl (Dulcolax) 10 mg ONCE ONCE PO ; Start 12/23/18 at 12:30; Stop 12/23/18 at 12:31 Magnesium Citrate (Citroma) 300 ml ONCE ONCE PO ; Start 12/23/18 at 17:30; Stop 12/23/18 at 17:31 Polyethylene Glycol (Miralax) 119 gm ONCE ONCE PO ; Start 12/23/18 at 18:30; Stop 12/23/18 at 18:31 Polyethylene Glycol (Miralax) 119 gm 2ND DOSE (GI PREP) ONCE PO ; Start 12/24/18 at 06:00; Stop 12/24/18 at 06:01 Bisacodyl (Dulcolax) 10 mg 2ND DOSE (GI PREP) ONCE PO ; Start 12/24/18 at 08:00; Stop 12/24/18 at 08:01 JEFF BOYD NP Dec 23, 2018 12:31
[2018-12-23 15:30] VITALS: BP 135/67; PULSE 84; RESP 17
[2018-12-23] MEDS: ONDANSETRON 4 MG INJ IV PRN ×2 (15:38→20:02)
[2018-12-23] MEDS ORDERED: MAGNESIUM CITRATE 300 ML BTL PO ONE (17:30)
[2018-12-23] MEDS ORDERED: POLYETHYLENE GLYCOL 3350 119 GM POWDER PO ONE (18:30)
[2018-12-23 20:24] VITALS: BP 133/65; PULSE 100; RESP 18
[2018-12-24] VITALS (10 sets, daily range): BP systolic 101–141; BP diastolic 58–76; PULSE 90–107; RESP 15–20
[2018-12-24] MEDS: METOCLOPRAMIDE 10 MG INJ IV SCH ×4 (00:54→18:00)
[2018-12-24] MEDS: PANTOPRAZOLE IV 80 MG in SOD CHLORIDE 0.9% 100 ML IV SCH ×2 (00:54→09:43)
[2018-12-24] MEDS: HYOSCYAMINE 0.125 MG SUBL TAB PO SCH ×4 (00:56→21:50)
[2018-12-24] MEDS: HYDROmorphONE 2 MG/ML SYG IV PRN ×3 (01:00→12:06)
[2018-12-24] MEDS ORDERED: POLYETHYLENE GLYCOL 3350 119 GM POWDER PO ONE (06:00)
[2018-12-24] MEDS: LEVOTHYROXINE 100 MCG TAB PO SCH (06:53)
[2018-12-24] MEDS ORDERED: BISACODYL (EC) 5 MG TAB PO ONE (08:00)
--- NOTE | 2018-12-24 13:06 | CONS ---
Consultation Date/Type/Reason Admit Date/Time Date/Time of Note DATE: 12/24/18 TIME: 13:05 Pt seen , examined with family members in attendance. New orders written for pain management. Full note to follow. Past Medical History Home Meds Active Scripts Pantoprazole* (Protonix*) 40 Mg Tablet., 40 MG PO DAILY, #10 TAB Prov:OBI JOHNSTON MD 11/05/18 Tramadol HCl (Tramadol HCl) 50 Mg Tablet, 50 MG PO Q6 PRN for PAIN, #10 TAB Prov:OBI JOHNSTON MD 11/05/18 Reported Medications Omeprazole* (Omeprazole*) 40 Mg Capsule., 1 CAP PO DAILY 08/31/18 Levothyroxine Sodium* (Levoxyl*) 100 Mcg Tablet, 100 MCG PO BEFORE BREAKFAST, #30 TAB 04/07/18 Medications Current Medications IV Flush (NS 3 ml) 3 ml PER PROTOCOL IV ; Start 12/21/18 at 20:30 Ondansetron HCl (Zofran Inj) 4 mg Q6H PRN IV NAUSEA/VOMITING Last administered on 12/23/18at 20:02; Admin Dose 4 MG; Start 12/21/18 at 20:30 Acetaminophen (Tylenol Tab) 650 mg Q6H PRN PO .PAIN 1-3 OR TEMP; Start 12/21/18 at 20:30 Pantoprazole 80 mg/Sodium Chloride 100 ml @ 10 mls/hr Q10H IV Last administered on 12/24/18at 09:43; Admin Dose 10 MLS/HR; Start 12/21/18 at 21:30 Hydralazine HCl (Apresoline) 10 mg Q4H PRN IV SBP>170 Last administered on 12/21at 22:44; Admin Dose 10 MG; Start 12/21/18 at 22:30 Levothyroxine Sodium (Synthroid) 100 mcg BEFORE BREAKFAST PO Last administered on 12/24/18at 06:53; Admin Dose 100 MCG; Start 12/22/18 at 07:00 Hydromorphone HCl (Dilaudid) 2 mg Q3H PRN IV SEVERE PAIN LEVEL 7-10 Last administered on 12/24/18at 12:06; Admin Dose 2 MG; Start 12/22/18 at 10:00 Hydromorphone HCl (Dilaudid) 2 mg Q4H PRN IV BREAKTHROUGH PAIN; Start 12/22/18 at 12:00 Acetaminophen/ Hydrocodone Bitart ([place] (10/325)) 1 tab Q4H PRN PO MODERATE PAIN LEVEL 4-6; Start 12/22/18 at 10:00 Hyoscyamine (Levsin (Sl)) 0.125 mg Q8 PO Last administered on 12/24/18at 06:53; Admin Dose 0.125 MG; Start 12/22/18 at 14:00 Metoclopramide HCl (Reglan) 10 mg Q6 IV Last administered on 12/24/18at 12:06; Admin Dose 10 MG; Start 12/22/18 at 12:00 Diphenhydramine HCl (Benadryl) 25 mg Q6H PRN PO ITCHING Last administered on 12/23/18at 18:57; Admin Dose 25 MG; Start 12/22/18 at 12:18 Allergies: Coded Allergies: latex (Verified Allergy, Mild, 11/05/18) strawberry (Verified Allergy, Mild, 12/22/18) morphine (Verified Allergy, Unknown, 11/05/18) Past Surgical History Past Surgical Hx: cholecystectomy Social History Alcohol Use: none Smoking Status: Never smoker Drug Use: none Exam/Review of Systems Exam Vitals Vital Signs Date Temp Pulse Resp B/P (MAP) Pulse Ox O2 O2 Flow FiO2 Time Delivery Rate 12/24/18 98.8 107 16 133/69 99 Room Air 07:48 (90) Intake and Output 12/23/18 12/23/18 12/24/18 1515:00 23:00 07:00 IntakeIntake Total 200 ml 280 ml 710 ml BalanceBalance 200 ml 280 ml 710 ml Results Result Diagram: 12/22/18 1408 12/21/18 1840 Results 24hrs Laboratory Tests Test 12/24/18 04:42 Prothrombin Time 14.7 Prothrombin Time Ratio 1.1 INR International Normalized Ratio 1.14 Medications Medication Current Medications IV Flush (NS 3 ml) 3 ml PER PROTOCOL IV ; Start 12/21/18 at 20:30 Ondansetron HCl (Zofran Inj) 4 mg Q6H PRN IV NAUSEA/VOMITING Last administered on 12/23/18at 20:02; Admin Dose 4 MG; Start 12/21/18 at 20:30 Acetaminophen (Tylenol Tab) 650 mg Q6H PRN PO .PAIN 1-3 OR TEMP; Start 12/21/18 at 20:30 Pantoprazole 80 mg/Sodium Chloride 100 ml @ 10 mls/hr Q10H IV Last administered on 12/24/18 09:43; Admin Dose 10 MLS/HR; Start 12/21/18 at 21:30 Hydralazine HCl (Apresoline) 10 mg Q4H PRN IV SBP>170 Last administered on 12/21/18 22:44; Admin Dose 10 MG; Start 12/21/18 at 22:30 Levothyroxine Sodium (Synthroid) 100 mcg BEFORE BREAKFAST PO Last administered on 12/24/18 06:53; Admin Dose 100 MCG; Start 12/22/18 at 07:00 Hydromorphone HCl (Dilaudid) 2 mg Q3H PRN IV SEVERE PAIN LEVEL 7-10 Last administered on 12/24/18 12:06; Admin Dose 2 MG; Start 12/22/18 at 10:00 Hydromorphone HCl (Dilaudid) 2 mg Q4H PRN IV BREAKTHROUGH PAIN; Start 12/22/18 at 12:00 Acetaminophen/ Hydrocodone Bitart ([place] (10/325)) 1 tab Q4H PRN PO MODERATE PAIN LEVEL 4-6; Start 12/22/18 at 10:00 Hyoscyamine (Levsin (Sl)) 0.125 mg Q8 PO Last administered on 12/24/18 06:53; Admin Dose 0.125 MG; Start 12/22/18 at 14:00 Metoclopramide HCl (Reglan) 10 mg Q6 IV Last administered on 12/24/18 12:06; Admin Dose 10 MG; Start 12/22/18 at 12:00 Diphenhydramine HCl (Benadryl) 25 mg Q6H PRN PO ITCHING Last administered on 12/23/18 18:57; Admin Dose 25 MG; Start 12/22/18 at 12:18 DESIRAE TOMPKINS Dec 24, 2018 13:06
--- NOTE | 2018-12-24 13:43 | PN ---
Date/Time of Note Date/Time of Note DATE: 12/24/18 TIME: 13:39 Assessment/Plan VTE Prophylaxis Risk score (from Ns)>0 risk: 4 SCD applied (from Ns): Yes Pharmacological prophylaxis: NA/contraindicated Pharm contraindication: bleeding Lines/Catheters IV Catheter Type (from Nrsg): Peripheral IV Assessment/Plan Hospital Course S: Per nursing staff, patient apparently had large bowel movement with some blood in it overnight after getting bowel prep. O: VS - see below PE: -Unable to be performed now as the patient is presently off the floor at procedure Assessment/Plan: 63 yo woman with pancreatic cancer who presents with intractable pain and GI bleed. #1 lower GI bleed: Reported bright red blood and has history of hemorrhoids. Seen by GI team -Again follow-up the results of EGD+colonoscopy, which is planned for today #2 intractable abdominal pain- Due to pancreatic cancer -Continue methadone low-dose as ordered by pain management team today -Also for now continue with IV Dilaudid 2 mg every 4 hours as needed. Titrate as needed. #3 pancreatic cancer: Has gone through chemotherapy. 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 #4 history of stomach cancer: Followed by hematology as an outpatient. #5 hypothyroidism: Continue levothyroxine, follow-up TSH #6 normocytic anemia: Secondary to underlying GI bleed and anemia of chronic disease secondary to cancer. Please see #1. #7 DVT GI prophylaxis: SCDs, Protonix CODE STATUS: DNR/DNI. Family is amenable to hospice care if condition worsens. Result Diagram: 12/22/18 1408 12/21/18 1840 Results 24hrs Laboratory Tests Test 12/24/18 04:42 Prothrombin Time 14.7 Prothrombin Time Ratio 1.1 INR International Normalized Ratio 1.14 Exam/Review of Systems Exam Vitals Vital Signs Date Temp Pulse Resp B/P (MAP) Pulse Ox O2 O2 Flow FiO2 Time Delivery Rate 12/24/18 98.8 107 16 133/69 99 Room Air 07:48 (90) Intake and Output 12/23/18 12/23/18 12/24/18 1515:00 23:00 07:00 IntakeIntake Total 200 ml 280 ml 710 ml BalanceBalance 200 ml 280 ml 710 ml Results Results 24hrs Laboratory Tests Test 12/24/18 04:42 Prothrombin Time 14.7 Prothrombin Time Ratio 1.1 INR International Normalized Ratio 1.14 Medications Medication Current Medications IV Flush (NS 3 ml) 3 ml PER PROTOCOL IV ; Start 12/21/18 at 20:30 Ondansetron HCl (Zofran Inj) 4 mg Q6H PRN IV NAUSEA/VOMITING Last administered on 12/23/18 20:02; Admin Dose 4 MG; Start 12/21/18 at 20:30 Acetaminophen (Tylenol Tab) 650 mg Q6H PRN PO .PAIN 1-3 OR TEMP; Start 12/21/18 at 20:30 Pantoprazole 80 mg/Sodium Chloride 100 ml @ 10 mls/hr Q10H IV Last administered on 12/24/18 09:43; Admin Dose 10 MLS/HR; Start 12/21/18 at 21:30 Hydralazine HCl (Apresoline) 10 mg Q4H PRN IV SBP>170 Last administered on 12/21/18 22:44; Admin Dose 10 MG; Start 12/21/18 at 22:30 Levothyroxine Sodium (Synthroid) 100 mcg BEFORE BREAKFAST PO Last administered on 12/24/18 06:53; Admin Dose 100 MCG; Start 12/22/18 at 07:00 Hydromorphone HCl (Dilaudid) 2 mg Q4H PRN IV BREAKTHROUGH PAIN; Start 12/22/18 at 12:00 Hyoscyamine (Levsin (Sl)) 0.125 mg Q8 PO Last administered on 12/24/18 06:53; Admin Dose 0.125 MG; Start 12/22/18 at 14:00 Metoclopramide HCl (Reglan) 10 mg Q6 IV Last administered on 12/24/18 12:06; Admin Dose 10 MG; Start 12/22/18 at 12:00 Diphenhydramine HCl (Benadryl) 25 mg Q6H PRN PO ITCHING Last administered on 12/23/18 18:57; Admin Dose 25 MG; Start 12/22/18 at 12:18 Methadone HCl (Methadone Liq) 1 mg Q8 PO ; Start 12/24/18 at 14:00; Status ROGER HERNÁNDEZ Dec 24, 2018 13:43
--- NOTE | 2018-12-24 14:08 | PREAC ---
Date/Time of Note Date/Time of Note DATE: 12/24/18 TIME: 14:06 Anesthesia Eval and Record Evaluation Time Pre-Procedure Interview DATE: 12/24/18 TIME: 14:06 Age 63 Sex female NPO: 8 hrs Preoperative diagnosis Anemia , GI bleeding Planned procedure EGD and Colonoscopy Past Medical History Past Medical History: Includes Endo: Diabetes Pulm: Asthma GI: Other (Pancreatic Cancer) Heme: Anemia, Thrombocytopenia Psych: Depression Surgery & Anesthesia Issues No known issue Meds Anticoagulation: No Beta Lisa within 24 hr: No Reason Beta Lisa not given: Pt. not on B-Lisa Active Scripts Pantoprazole* (Protonix*) 40 Mg Tablet., 40 MG PO DAILY, #10 TAB Prov:OBI JOHNSTON MD 11/05/18 Tramadol HCl (Tramadol HCl) 50 Mg Tablet, 50 MG PO Q6 PRN for PAIN, #10 TAB Prov:OBI JOHNSTON MD 11/05/18 Reported Medications Omeprazole* (Omeprazole*) 40 Mg Capsule., 1 CAP PO DAILY 08/31/18 Levothyroxine Sodium* (Levoxyl*) 100 Mcg Tablet, 100 MCG PO BEFORE BREAKFAST, #30 TAB 04/07/18 Current Medications IV Flush (NS 3 ml) 3 ml PER PROTOCOL IV ; Start 12/21/18 at 20:30 Ondansetron HCl (Zofran Inj) 4 mg Q6H PRN IV NAUSEA/VOMITING Last administered on 12/23/18at 20:02; Admin Dose 4 MG; Start 12/21/18 at 20:30 Acetaminophen (Tylenol Tab) 650 mg Q6H PRN PO .PAIN 1-3 OR TEMP; Start 12/21/18 at 20:30 Pantoprazole 80 mg/Sodium Chloride 100 ml @ 10 mls/hr Q10H IV Last administered on 12/24/18at 09:43; Admin Dose 10 MLS/HR; Start 12/21/18 at 21:30 Hydralazine HCl (Apresoline) 10 mg Q4H PRN IV SBP>170 Last administered on 12/21/18at 22:44; Admin Dose 10 MG; Start 12/21/18 at 22:30 Levothyroxine Sodium (Synthroid) 100 mcg BEFORE BREAKFAST PO Last administered on 12/24/18at 06:53; Admin Dose 100 MCG; Start 12/22/18 at 07:00 Hydromorphone HCl (Dilaudid) 2 mg Q4H PRN IV BREAKTHROUGH PAIN; Start 12/22/18 at 12:00 Hyoscyamine (Levsin (Sl)) 0.125 mg Q8 PO Last administered on 12/24/18at 06:53; Admin Dose 0.125 MG; Start 12/22/18 at 14:00 Metoclopramide HCl (Reglan) 10 mg Q6 IV Last administered on 12/24/18at 12:06; Admin Dose 10 MG; Start 12/22/18 at 12:00 Diphenhydramine HCl (Benadryl) 25 mg Q6H PRN PO ITCHING Last administered on 12/23/18at 18:57; Admin Dose 25 MG; Start 12/22/18 at 12:18 Methadone HCl (Methadone Liq) 1 mg Q8 PO ; Start 12/24/18 at 14:00 Meds reviewed: Yes Allergies Coded Allergies: latex (Verified Allergy, Mild, 11/05/18) strawberry (Verified Allergy, Mild, 12/22/18) morphine (Verified Allergy, Unknown, 11/05/18) Allergies Reviewed: Yes Labs/Studies Labs Reviewed: Reviewed by anesthesiologist Result Diagram: 12/22/18 1408 12/21/18 1840 test: N/A Studies: ECG (n/a), CXR (n/a) Pre-procedure Exam Last vitals Vital Signs Date Temp Pulse Resp B/P (MAP) Pulse Ox O2 O2 Flow FiO2 Time Delivery Rate 12/24/18 99.4 102 18 132/63 95 Room Air 13:54 (86) Airway: Adequate mouth opening, Adequate thyromental dist Mallampati: Mallampati II Teeth: Normal Lung: Normal Heart: Normal ASA Physical Status ASA physical status: 3 Emergency: None Planned Anesthetic General/MAC: MAC Planned Pain Management Parenteral pain med Pre-operative Attestations Prior to commencing anesthesia and surgery, the patient was re-evaluated, there was verification of: *The patient's identity *The results of appropriate recent lab work and preoperative vital signs *The above evaluation not changing prior to induction *Anesthetic plan, risk benefits, alternative and complications discussed with patient/family; questions answered; patient/family understands, accepts and wishes to proceed. HAYLEY LIRA MD Dec 24, 2018 14:08
--- NOTE | 2018-12-24 14:38 | PAC ---
Date/Time of Note Date/Time of Note DATE: 12/24/18 TIME: 14:37 Post-Anesthesia Notes Post-Anesthesia Note Last documented vital signs Vital Signs Date Temp Pulse Resp B/P (MAP) Pulse Ox O2 O2 Flow FiO2 Time Delivery Rate 12/24/18 99.4 102 18 132/63 95 Room Air 14:34 (86) Activity: WNL Respiratory function: WNL Cardiovascular function: WNL Mental status: Baseline Pain reasonably controlled: Yes Hydration appropriate: Yes Nausea/Vomiting absent: Yes HAYLEY LIRA MD Dec 24, 2018 14:38
[2018-12-24] MEDS ORDERED: EPHEDrine 25 MG/5 ML SYG IV PRN (15:00)
[2018-12-24] MEDS ORDERED: ALBUMIN HUMAN 5% 250 ML IV PRN (15:00)
[2018-12-24] MEDS ORDERED: ONDANSETRON 4 MG INJ IV PRN (15:00)
[2018-12-24] MEDS ORDERED: PHENYLephrine (100 MCG/ML) 10ML SYG ONE (15:04)
[2018-12-24] MEDS ORDERED: PROPOFOL 20 ML ONE (15:04)
[2018-12-24] MEDS: METHADONE (1 MG/ML 5 ML PO UD SYG) PO SCH ×2 (15:47→21:51)
[2018-12-25] MEDS: METOCLOPRAMIDE 10 MG INJ IV SCH ×4 (00:09→17:49)
[2018-12-25 01:47] VITALS: BP 102/56; PULSE 99; RESP 17
[2018-12-25] MEDS: LEVOTHYROXINE 100 MCG TAB PO SCH (06:20)
[2018-12-25] MEDS: HYOSCYAMINE 0.125 MG SUBL TAB PO SCH ×3 (06:20→22:35)
[2018-12-25] MEDS: METHADONE (1 MG/ML 5 ML PO UD SYG) PO SCH ×3 (06:20→22:38)
[2018-12-25 08:07] VITALS: BP 102/59; PULSE 102; RESP 17
--- NOTE | 2018-12-25 10:55 | PN ---
Date/Time of Note Date/Time of Note DATE: 12/25/18 TIME: 10:50 Assessment/Plan VTE Prophylaxis Risk score (from Ns)>0 risk: 5 SCD applied (from Ns): Yes Pharmacological prophylaxis: NA/contraindicated Pharm contraindication: bleeding Lines/Catheters IV [facility] Saline Lock Assessment/Plan Hospital Course Assessment/Plan Assessment: Upper abdominal pain postprandial -s/p EGD 12/24/18-hepatitis, gastritis, biopsies obtained to rule out H. pylori. Nausea- improved Hematochezia- resolved -s/p colonoscopy 12/24/18-internal hemorrhoids otherwise normal colonoscopy Pancreatic cancer -ongoing chemotherapy Thrombocytopenia History of gastric cancer Normocytic anemia Hypothyroidism Plan: Transfuse for hemoglobin less than 7.5 Change PPI to BID Continue Levsin and Reglan Patient seen in collaboration with Dr. Calvert Subjective: Family at bedside, I reviewed results of EGD/colonoscopy. Nausea has improved with OTC Reglan. Pt is having some abd pain- described as burning- Pyrosis? started on PPI BID- was previously on omeprazole with min help. Now she is asking to eat, which is an improvement. PHYSICAL EXAMINATION: GENERAL: Ill-appearing, alert & oriented x 3, in no acute distress SKIN: No lesions, no stigmata chronic liver disease, no evidence of bleeding diathesis HEAD: Normocephalic, atraumatic, no tenderness. EYES: Pupils equal reactive to light and accommodation, full extraocular movements, sclera clear, non-icteric, no discharge. EARS/NOSE AND THROAT: Ears normal, nose normal, oropharynx normal, oral membranes well hydrated without lesions. NECK: Supple, no masses, thyroid normal CHEST: Inspection within normal limits. CARDIOVASCULAR: Heart: Regular rate and rhythm, murmurs, gallops or rubs. RESPIRATORY: Lungs clear to auscultation GASTROINTESTINAL AND LIVER: Abdomen: Soft, mild upper abd tenderness, non- distended, no hernias, no masses, no organomegaly, no ascites, no guarding, no rebound tenderness, normoactive bowel sounds. Rectal: Deferred. GENITOURINARY: Female genitalia within normal limits. EXTREMITIES: No cyanosis, clubbing or edema. Result Diagram: 12/22/18 1408 12/21/18 1840 Exam/Review of Systems Exam Vitals Vital Signs Date Temp Pulse Resp B/P (MAP) Pulse Ox O2 O2 Flow FiO2 Time Delivery Rate 12/25/18 98.7 102 17 102/59 95 Room Air 08:07 (73) 12/24/18 15.0 15:00 Intake and Output 12/24/18 12/24/18 12/25/18 1515:00 23:00 07:00 IntakeIntake Total 150 ml OutputOutput Total 1000 ml BalanceBalance 150 ml -1000 ml Medications Medication Current Medications IV Flush (NS 3 ml) 3 ml PER PROTOCOL IV ; Start 12/21/18 at 20:30 Ondansetron HCl (Zofran Inj) 4 mg Q6H PRN IV NAUSEA/VOMITING Last administered on 12/23/18 20:02; Admin Dose 4 MG; Start 12/21/18 at 20:30 Acetaminophen (Tylenol Tab) 650 mg Q6H PRN PO .PAIN 1-3 OR TEMP; Start 12/21/18 at 20:30 Hydralazine HCl (Apresoline) 10 mg Q4H PRN IV SBP>170 Last administered on 12/21/18at 22:44; Admin Dose 10 MG; Start 12/21/18 at 22:30 Levothyroxine Sodium (Synthroid) 100 mcg BEFORE BREAKFAST PO Last administered on 12/25/18 06:20; Admin Dose 100 MCG; Start 12/22/18 at 07:00 Hydromorphone HCl (Dilaudid) 2 mg Q4H PRN IV BREAKTHROUGH PAIN; Start 12/22/18 at 12:00 Hyoscyamine (Levsin (Sl)) 0.125 mg Q8 PO Last administered on 12/25/18 06:20; Admin Dose 0.125 MG; Start 12/22/18 at 14:00 Metoclopramide HCl (Reglan) 10 mg Q6 IV Last administered on 12/25/18 06:20; Admin Dose 10 MG; Start 12/22/18 at 12:00 Diphenhydramine HCl (Benadryl) 25 mg Q6H PRN PO ITCHING Last administered on 12/23/18 18:57; Admin Dose 25 MG; Start 12/22/18 at 12:18 Methadone HCl (Methadone Liq) 1 mg Q8 PO Last administered on 12/25/18 06:20; Admin Dose 1 MG; Start 12/24/18 at 14:00 JUNIOR GÓMEZ Dec 25, 2018 10:55
[2018-12-25] MEDS: HYDROmorphONE 1 MG/ML SYG IV PRN ×2 (10:58→20:00)
[2018-12-25 14:18] VITALS: BP 106/55; PULSE 95; RESP 20
--- NOTE | 2018-12-25 14:47 | PN ---
Date/Time of Note Date/Time of Note DATE: 12/25/18 TIME: 14:30 Assessment/Plan VTE Prophylaxis Risk score (from Nsg)>0 risk: 5 SCD applied (from Nsg): Yes Pharmacological prophylaxis: other Lines/Catheters IV Catheter Type (from Nrsg): Saline Lock Assessment/Plan Hospital Course S: Pt had an EGD and colonoscopy yesterday. Tolerating diet presently. No acute events overnight. O: VS - see below PE: General: Patient is currently lying in bed, sitting up, awake, conversant. HEENT: Atraumatic, normocephalic. The pupils are equal, round and reactive. Extraocular motor are intact Neck: Supple with full range of motion. No rigidity or meningismus Chest: Right chest Port-A-Cath Lungs: Clear to auscultation bilaterally no crackles rales or wheezing Heart: Sinus tachycardia Abdomen: Soft , generalized tenderness to palpation, bowel sounds are present. No guarding no rebound tenderness , Extremities: Normal to inspection, no edema no cyanosis Assessment/Plan: 63 yo woman with pancreatic cancer who presents with intractable pain and GI bleed. #1 lower GI bleed: Reported bright red blood and has history of hemorrhoids. Seen by GI team, again-s/p EGD 12/24/18-hepatitis, gastritis, biopsies obtained to rule out H. pylori-s/p colonoscopy 12/24/18-internal hemorrhoids otherwise normal colonoscopy -Continue diet per GI recommendations, monitor for any further bleeding -We will also get PT eval #2 intractable abdominal pain- Due to pancreatic cancer -Continue methadone low-dose as ordered by pain management team today -Also for now continue with IV Dilaudid 2 mg every 4 hours as needed. Titrate as needed. #3 pancreatic cancer: Has gone through chemotherapy. 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 #4 history of stomach cancer: Followed by hematology as an outpatient. #5 hypothyroidism: Continue levothyroxine, follow-up TSH #6 normocytic anemia: Secondary to underlying GI bleed and anemia of chronic disease secondary to cancer. Please see #1. #7 DVT GI prophylaxis: SCDs, Protonix CODE STATUS: DNR/DNI. Family is amenable to hospice care if condition worsens. Result Diagram: 12/22/18 1408 12/21/18 1840 Exam/Review of Systems Exam Vitals Vital Signs Date Temp Pulse Resp B/P (MAP) Pulse Ox O2 O2 Flow FiO2 Time Delivery Rate 12/25/18 98.2 95 20 106/55 98 14:18 (72) 12/25/18 Room Air 08:07 12/24/18 15.0 15:00 Intake and Output 12/24/18 12/24/18 12/25/18 1414:59 22:59 06:59 IntakeIntake Total 150 ml OutputOutput Total 1000 ml BalanceBalance 150 ml -1000 ml Medications Medication Current Medications IV Flush (NS 3 ml) 3 ml PER PROTOCOL IV ; Start 12/21/18 at 20:30 Ondansetron HCl (Zofran Inj) 4 mg Q6H PRN IV NAUSEA/VOMITING Last administered on 12/23/18 20:02; Admin Dose 4 MG; Start 12/21/18 at 20:30 Acetaminophen (Tylenol Tab) 650 mg Q6H PRN PO .PAIN 1-3 OR TEMP; Start 12/21/18 at 20:30 Hydralazine HCl (Apresoline) 10 mg Q4H PRN IV SBP>170 Last administered on 12/21/18 22:44; Admin Dose 10 MG; Start 12/21/18 at 22:30 Levothyroxine Sodium (Synthroid) 100 mcg BEFORE BREAKFAST PO Last administered on 12/25/18 06:20; Admin Dose 100 MCG; Start 12/22/18 at 07:00 Hydromorphone HCl (Dilaudid) 2 mg Q4H PRN IV BREAKTHROUGH PAIN Last administered on 12/25/18 10:58; Admin Dose 2 MG; Start 12/22/18 at 12:00 Hyoscyamine (Levsin (Sl)) 0.125 mg Q8 PO Last administered on 12/25/18 06:20; Admin Dose 0.125 MG; Start 12/22/18 at 14:00 Metoclopramide HCl (Reglan) 10 mg Q6 IV Last administered on 12/25/18 06:20; Admin Dose 10 MG; Start 12/22/18 at 12:00 Diphenhydramine HCl (Benadryl) 25 mg Q6H PRN PO ITCHING Last administered on 12/23/18 18:57; Admin Dose 25 MG; Start 12/22/18 at 12:18 Methadone HCl (Methadone Liq) 1 mg Q8 PO Last administered on 12/25/18at 06:20; Admin Dose 1 MG; Start 12/24/18 at 14:00 Pantoprazole (Protonix Tab) 40 mg BID@,18 PO ; Start 12/25/18 at 18:00 ROGER BROOKS Dec 25, 2018 14:46
[2018-12-25] MEDS: PANTOPRAZOLE (EC) 40 MG TAB PO SCH (17:49)
[2018-12-25 20:47] VITALS: BP 115/67; PULSE 104; RESP 20
[2018-12-26] MEDS: METOCLOPRAMIDE 10 MG INJ IV SCH ×4 (00:26→18:09)
[2018-12-26 01:55] VITALS: BP 110/58; PULSE 104; RESP 18
[2018-12-26 03:05] VITALS: PULSE 96
[2018-12-26] MEDS: CEFTRIAXONE 1 GM/50 ML (PMX) 50 ML IVPB SCH (03:16)
[2018-12-26] MEDS: HYDROmorphONE 1 MG/ML SYG IV PRN ×2 (03:25→10:38)
[2018-12-26] MEDS: HYOSCYAMINE 0.125 MG SUBL TAB PO SCH ×3 (05:28→22:24)
[2018-12-26] MEDS: PANTOPRAZOLE (EC) 40 MG TAB PO SCH ×2 (05:28→18:09)
[2018-12-26] MEDS: METHADONE (1 MG/ML 5 ML PO UD SYG) PO SCH ×3 (05:28→22:25)
[2018-12-26] MEDS: LEVOTHYROXINE 100 MCG TAB PO SCH (05:34)
[2018-12-26 07:29] VITALS: BP 113/55; PULSE 100; RESP 18
--- NOTE | 2018-12-26 11:27 | PN ---
Date/Time of Note Date/Time of Note DATE: 12/26/18 TIME: 11:24 Assessment/Plan VTE Prophylaxis Risk score (from Ns)>0 risk: 8 SCD applied (from Ns): Yes Pharmacological prophylaxis: other (scds) Lines/Catheters IV [facility]atheter Type (from [facility]): Saline Lock Assessment/Plan Hospital Course Assessment/Plan Assessment: Upper abdominal pain postprandial -s/p EGD 12/24/18-hepatitis, gastritis, biopsies obtained to rule out H. pylori. A-Prominent ampulla of Vater, biopsy: -- Ampulla mucosa showing no significant histopathological abnormality. B-Stomach, antrum/body, biopsy: -- Antral mucosa showing moderate chronic gastritis with mild active inflammation and benign lymphoid aggregate. -- No Helicobacter pylori is identified in Giemsa stain (positive control concurrently reviewed). -- No evidence of intestinal metaplasia, dysplasia or malignancy. Nausea- improved Hematochezia- resolved -s/p colonoscopy 12/24/18-internal hemorrhoids otherwise normal colonoscopy Pancreatic cancer -ongoing chemotherapy Thrombocytopenia History of gastric cancer Macrocytic anemia Hypothyroidism Plan: PPI to BID Repeat CBC Continue Ricardo lopes Reglan Patient seen in collaboration with Dr. Calvert Subjective: Significant drop in overall CBC from yesterday- will repeat CBC now No over night events No overt signs of GI bleed Pt with increased weakness today PHYSICAL EXAMINATION: GENERAL: Ill-appearing, alert & oriented x 3, in no acute distress SKIN: No lesions, no stigmata chronic liver disease, no evidence of bleeding diathesis HEAD: Normocephalic, atraumatic, no tenderness. EYES: Pupils equal reactive to light and accommodation, full extraocular movements, sclera clear, non-icteric, no discharge. EARS/NOSE AND THROAT: Ears normal, nose normal, oropharynx normal, oral membranes well hydrated without lesions. NECK: Supple, no masses, thyroid normal CHEST: Inspection within normal limits. CARDIOVASCULAR: Heart: Regular rate and rhythm, murmurs, gallops or rubs. RESPIRATORY: Lungs clear to auscultation GASTROINTESTINAL AND LIVER: Abdomen: Soft, mild upper abd tenderness, non- distended, no hernias, no masses, no organomegaly, no ascites, no guarding, no rebound tenderness, normoactive bowel sounds. Rectal: Deferred. GENITOURINARY: Female genitalia within normal limits. EXTREMITIES: No cyanosis, clubbing or edema. Result Diagram: 12/26/18 0524 Results 24hrs Laboratory Tests Test 12/26/18 05:24 White Blood Count 0.5 #L Red Blood Count 2.24 L Hemoglobin 7.7 L Hematocrit 23.5 L Mean Corpuscular Volume 104.9 H Mean Corpuscular Hemoglobin 34.4 H Mean Corpuscular Hemoglobin Concent 32.8 Red Cell Distribution Width 14.0 Platelet Count 64 L Mean Platelet Volume 11.7 H Immature Granulocytes % 0.000 L Neutrophils % Segmented Neutrophils % (Manual) 2 L Lymphocytes % Lymphocytes % (Manual) 82 H Monocytes % Monocytes % (Manual) 10 Eosinophils % Eosinophils % (Manual) 2 Basophils % Basophils % (Manual) 2 Metamyelocytes % (manual) 1 H Myelocytes % (Manual) 1 H Promyelocytes % (Manual) 1 H Nucleated Red Blood Cells % 0.0 Immature Granulocytes # 0.000 Neutrophils # Lymphocytes (Manual) 0.4 L Lymphocytes # Monocytes # Monocytes # (Manual) 0.0 L Eosinophils # Basophils # Basophils # (Manual) 0.0 Metamyelocytes # 0.0 Myelocytes # 0.0 Promyelocytes # 0.0 Nucleated Red Blood Cells # Platelet Estimate DECREASED Giant Platelets 19 H Polychromasia 3+ Poikilocytosis 3+ Anisocytosis 1+ Macrocytosis 1+ Exam/Review of Systems Exam Vitals Vital Signs Date Temp Pulse Resp B/P (MAP) Pulse Ox O2 O2 Flow FiO2 Time Delivery Rate 12/26/18 98.5 100 18 113/55 95 07:29 (74) 12/26/18 Room Air 01:55 12/24/18 15.0 15:00 Intake and Output 12/25/18 12/25/18 12/26/18 1515:00 23:00 07:00 IntakeIntake Total 480 ml 50 ml BalanceBalance 480 ml 50 ml Results Results 24hrs Laboratory Tests Test 12/26/18 05:24 White Blood Count 0.5 #L Red Blood Count 2.24 L Hemoglobin 7.7 L Hematocrit 23.5 L Mean Corpuscular Volume 104.9 H Mean Corpuscular Hemoglobin 34.4 H Mean Corpuscular Hemoglobin Concent 32.8 Red Cell Distribution Width 14.0 Platelet Count 64 L Mean Platelet Volume 11.7 H Immature Granulocytes % 0.000 L Neutrophils % Segmented Neutrophils % (Manual) 2 L Lymphocytes % Lymphocytes % (Manual) 82 H Monocytes % Monocytes % (Manual) 10 Eosinophils % Eosinophils % (Manual) 2 Basophils % Basophils % (Manual) 2 Metamyelocytes % (manual) 1 H Myelocytes % (Manual) 1 H Promyelocytes % (Manual) 1 H Nucleated Red Blood Cells % 0.0 Immature Granulocytes # 0.000 Neutrophils # Lymphocytes (Manual) 0.4 L Lymphocytes # Monocytes # Monocytes # (Manual) 0.0 L Eosinophils # Basophils # Basophils # (Manual) 0.0 Metamyelocytes # 0.0 Myelocytes # 0.0 Promyelocytes # 0.0 Nucleated Red Blood Cells # Platelet Estimate DECREASED Giant Platelets 19 H Polychromasia 3+ Poikilocytosis 3+ Anisocytosis 1+ Macrocytosis 1+ Medications Medication Current Medications IV Flush (NS 3 ml) 3 ml PER PROTOCOL IV ; Start 12/21/18 at 20:30 Ondansetron HCl (Zofran Inj) 4 mg Q6H PRN IV NAUSEA/VOMITING Last administered on 12/23/18 20:02; Admin Dose 4 MG; Start 12/21/18 at 20:30 Acetaminophen (Tylenol Tab) 650 mg Q6H PRN PO .PAIN 1-3 OR TEMP Last administered on 12/26/18 02:00; Admin Dose 650 MG; Start 12/21/18 at 20:30 Hydralazine HCl (Apresoline) 10 mg Q4H PRN IV SBP>170 Last administered on 12/21/18 22:44; Admin Dose 10 MG; Start 12/21/18 at 22:30 Levothyroxine Sodium (Synthroid) 100 mcg BEFORE BREAKFAST PO Last administered on 12/26/18 05:34; Admin Dose 100 MCG; Start 12/22/18 at 07:00 Hydromorphone HCl (Dilaudid) 2 mg Q4H PRN IV BREAKTHROUGH PAIN Last administered on 12/26/18 10:38; Admin Dose 2 MG; Start 12/22/18 at 12:00 Hyoscyamine (Levsin (Sl)) 0.125 mg Q8 PO Last administered on 12/26/18 05:28; Admin Dose 0.125 MG; Start 12/22/18 at 14:00 Metoclopramide HCl (Reglan) 10 mg Q6 IV Last administered on 7/17/19at 05:28; Admin Dose 10 MG; Start 12/22/18 at 12:00 Diphenhydramine HCl (Benadryl) 25 mg Q6H PRN PO ITCHING Last administered on 12/23/18at 18:57; Admin Dose 25 MG; Start 12/22/18 at 12:18 Methadone HCl (Methadone Liq) 1 mg Q8 PO Last administered on 12/26/18at 05:28; Admin Dose 1 MG; Start 12/24/18 at 14:00 Pantoprazole (Protonix Tab) 40 mg BID@06,18 PO Last administered on 12/26/18at 05:28; Admin Dose 40 MG; Start 12/25/18 at 18:00 Ceftriaxone Sodium 50 ml @ 100 mls/hr Q24H IVPB Last administered on 12/26/18at 03:16; Admin Dose 100 MLS/HR; Start 12/26/18 at 03:00 JUNIOR GÓMEZ Dec 26, 2018 11:27
[2018-12-26 13:22] VITALS: BP 107/61; PULSE 94; RESP 18
--- NOTE | 2018-12-26 14:59 | PN ---
Date/Time of Note Date/Time of Note DATE: 12/26/18 TIME: 14:48 Assessment/Plan VTE Prophylaxis Risk score (from Ns)>0 risk: 8 SCD applied (from Ns): Yes Pharmacological prophylaxis: other Lines/Catheters IV [facility] Type (from [facility]): Saline Lock Assessment/Plan Hospital Course S: Pt with more weakness symptoms today. Did have fever overnight. White blood cell count much lower today 0.5. O: VS - see below PE: General: Patient is currently lying in bed, sitting up, awake, conversant. HEENT: Atraumatic, normocephalic. The pupils are equal, round and reactive. Extraocular motor are intact Neck: Supple with full range of motion. No rigidity or meningismus Chest: Right chest Port-A-Cath Lungs: Clear to auscultation bilaterally no crackles rales or wheezing Heart: Sinus tachycardia Abdomen: Soft , generalized tenderness to palpation, bowel sounds are present. No guarding no rebound tenderness , Extremities: Normal to inspection, no edema no cyanosis Assessment/Plan: 63 yo woman with pancreatic cancer who presents with intractable pain and GI bleed. #1 lower GI bleed: Reported bright red blood and has history of hemorrhoids. Seen by GI team, again-s/p EGD 12/24/18-hepatitis, gastritis, biopsies obtained t o rule out H. pylori-s/p colonoscopy 12/24/18-internal hemorrhoids otherwise normal colonoscopy -Continue diet per GI recommendations, monitor for any further bleeding -Continue physical therapy #2 intractable abdominal pain- Due to pancreatic cancer -Continue methadone low-dose as ordered by pain management team today -Also for now continue with IV Dilaudid 2 mg every 4 hours as needed. Titrate as needed. #3 pancreatic cancer: Has gone through chemotherapy. Followed by outpatient copper etcher. Again patient did have fever overnight and the white blood cell count has dropped significantly in the last 24 hours to 0.5. -Continue current antibiotics, will Reach Out to the hematology oncology DrRene to see about any further treatment options given the new leukopenia. #4 history of stomach cancer: Followed by hematology as an outpatient. #5 hypothyroidism: Continue levothyroxine, follow-up TSH #6 normocytic anemia: Secondary to underlying GI bleed and anemia of chronic disease secondary to cancer. Please see #1. #7 DVT GI prophylaxis: SCDs, Protonix CODE STATUS: DNR/DNI. Family is amenable to hospice care if condition worsens. Result Diagram: 12/26/18 1139 Results 24hrs Laboratory Tests Test 12/26/18 05:24 12/26/18 11:39 White Blood Count 0.5 #L 0.5 L Red Blood Count 2.24 L 2.24 L Hemoglobin 7.7 L 7.8 L Hematocrit 23.5 L 23.2 L Mean Corpuscular Volume 104.9 H 103.6 H Mean Corpuscular Hemoglobin 34.4 H 34.8 H Mean Corpuscular Hemoglobin Concent 32.8 33.6 Red Cell Distribution Width 14.0 14.1 Platelet Count 64 L 64 L Mean Platelet Volume 11.7 H 11.2 H Immature Granulocytes % 0.000 L 2.100 H Neutrophils % Segmented Neutrophils % (Manual) 2 L 5 L Lymphocytes % Lymphocytes % (Manual) 82 H 61 H Monocytes % Monocytes % (Manual) 10 21 H Eosinophils % Eosinophils % (Manual) 2 3 Basophils % Basophils % (Manual) 2 4 H Metamyelocytes % (manual) 1 H Myelocytes % (Manual) 1 H 1 H Promyelocytes % (Manual) 1 H Nucleated Red Blood Cells % 0.0 1 H Immature Granulocytes # 0.000 0.010 Neutrophils # Lymphocytes (Manual) 0.4 L 0.3 L Lymphocytes # Monocytes # Monocytes # (Manual) 0.0 L 0.1 L Eosinophils # Basophils # Basophils # (Manual) 0.0 0.0 Metamyelocytes # 0.0 Myelocytes # 0.0 0.0 Promyelocytes # 0.0 Nucleated Red Blood Cells # Platelet Estimate DECREASED DECREASED Giant Platelets 19 H 11 H Polychromasia 3+ Poikilocytosis 3+ 2+ Anisocytosis 1+ 2+ Macrocytosis 1+ 2+ Band Neutrophils % (Manual) 1 Reactive Lymphocytes % (Manual) 2 H Blast Cells % (Manual) 3.0 H Neutrophils # (Manual) 0.0 L Band Neutrophils # 0.0 Reactive Lymphocytes # 0.0 Ovalocytes 1+ Exam/Review of Systems Exam Vitals Vital Signs Date Temp Pulse Resp B/P (MAP) Pulse Ox O2 O2 Flow FiO2 Time Delivery Rate 12/26/18 97.7 94 18 107/61 96 13:22 (76) 12/26/18 Room Air 01:55 12/24/18 15.0 15:00 Intake and Output 12/25/18 12/25/18 12/26/18 1515:00 23:00 07:00 IntakeIntake Total 480 ml 50 ml BalanceBalance 480 ml 50 ml Results Results 24hrs Laboratory Tests Test 12/26/18 05:24 12/26/18 11:39 White Blood Count 0.5 #L 0.5 L Red Blood Count 2.24 L 2.24 L Hemoglobin 7.7 L 7.8 L Hematocrit 23.5 L 23.2 L Mean Corpuscular Volume 104.9 H 103.6 H Mean Corpuscular Hemoglobin 34.4 H 34.8 H Mean Corpuscular Hemoglobin Concent 32.8 33.6 Red Cell Distribution Width 14.0 14.1 Platelet Count 64 L 64 L Mean Platelet Volume 11.7 H 11.2 H Immature Granulocytes % 0.000 L 2.100 H Neutrophils % Segmented Neutrophils % (Manual) 2 L 5 L Lymphocytes % Lymphocytes % (Manual) 82 H 61 H Monocytes % Monocytes % (Manual) 10 21 H Eosinophils % Eosinophils % (Manual) 2 3 Basophils % Basophils % (Manual) 2 4 H Metamyelocytes % (manual) 1 H Myelocytes % (Manual) 1 H 1 H Promyelocytes % (Manual) 1 H Nucleated Red Blood Cells % 0.0 1 H Immature Granulocytes # 0.000 0.010 Neutrophils # Lymphocytes (Manual) 0.4 L 0.3 L Lymphocytes # Monocytes # Monocytes # (Manual) 0.0 L 0.1 L Eosinophils # Basophils # Basophils # (Manual) 0.0 0.0 Metamyelocytes # 0.0 Myelocytes # 0.0 0.0 Promyelocytes # 0.0 Nucleated Red Blood Cells # Platelet Estimate DECREASED DECREASED Giant Platelets 19 H 11 H Polychromasia 3+ Poikilocytosis 3+ 2+ Anisocytosis 1+ 2+ Macrocytosis 1+ 2+ Band Neutrophils % (Manual) 1 Reactive Lymphocytes % (Manual) 2 H Blast Cells % (Manual) 3.0 H Neutrophils # (Manual) 0.0 L Band Neutrophils # 0.0 Reactive Lymphocytes # 0.0 Ovalocytes 1+ Medications Medication Current Medications IV Flush (NS 3 ml) 3 ml PER PROTOCOL IV ; Start 12/21/18 at 20:30 Ondansetron HCl (Zofran Inj) 4 mg Q6H PRN IV NAUSEA/VOMITING Last administered on 12/23/18 20:02; Admin Dose 4 MG; Start 12/21/18 at 20:30 Acetaminophen (Tylenol Tab) 650 mg Q6H PRN PO .PAIN 1-3 OR TEMP Last administered on 12/26/18 02:00; Admin Dose 650 MG; Start 12/21/18 at 20:30 Hydralazine HCl (Apresoline) 10 mg Q4H PRN IV SBP>170 Last administered on 12/21/18 22:44; Admin Dose 10 MG; Start 12/21/18 at 22:30 Levothyroxine Sodium (Synthroid) 100 mcg BEFORE BREAKFAST PO Last administered on 12/26/18 05:34; Admin Dose 100 MCG; Start 12/22/18 at 07:00 Hydromorphone HCl (Dilaudid) 2 mg Q4H PRN IV BREAKTHROUGH PAIN Last administered on 12/26/18 10:38; Admin Dose 2 MG; Start 12/22/18 at 12:00 Hyoscyamine (Levsin (Sl)) 0.125 mg Q8 PO Last administered on 12/26/18 14:11; Admin Dose 0.125 MG; Start 12/22/18 at 14:00 Metoclopramide HCl (Reglan) 10 mg Q6 IV Last administered on 12/26/18 14:11; Admin Dose 10 MG; Start 12/22/18 at 12:00 Diphenhydramine HCl (Benadryl) 25 mg Q6H PRN PO ITCHING Last administered on 12/23/18 18:57; Admin Dose 25 MG; Start 12/22/18 at 12:18 Methadone HCl (Methadone Liq) 1 mg Q8 PO Last administered on 12/26/18 14:11; Admin Dose 1 MG; Start 12/24/18 at 14:00 Pantoprazole (Protonix Tab) 40 mg BID@06,18 PO Last administered on 12/26/18 05:28; Admin Dose 40 MG; Start 12/25/18 at 18:00 Ceftriaxone Sodium 50 ml @ 100 mls/hr Q24H IVPB Last administered on 12/26/18 03:16; Admin Dose 100 MLS/HR; Start 12/26/18 at 03:00 ROGER BROOKS Dec 26, 2018 14:59
[2018-12-26] MEDS: FILGRASTIM-AAFI 300 MCG/0.5 ML SYRINGE SC SCH (18:09)
[2018-12-26 20:41] VITALS: BP 112/59; PULSE 98; RESP 18
[2018-12-27] MEDS: METOCLOPRAMIDE 10 MG INJ IV SCH ×5 (00:02→23:23)
[2018-12-27 02:00] VITALS: BP 94/52; PULSE 99; RESP 18
[2018-12-27] MEDS: CEFTRIAXONE 1 GM/50 ML (PMX) 50 ML IVPB SCH (02:50)
[2018-12-27] MEDS: HYOSCYAMINE 0.125 MG SUBL TAB PO SCH ×3 (06:29→21:11)
[2018-12-27] MEDS: METHADONE (1 MG/ML 5 ML PO UD SYG) PO SCH ×3 (06:29→21:17)
[2018-12-27] MEDS: LEVOTHYROXINE 100 MCG TAB PO SCH (06:29)
[2018-12-27] MEDS: PANTOPRAZOLE (EC) 40 MG TAB PO SCH ×2 (06:30→17:28)
[2018-12-27 09:14] VITALS: BP 111/54; PULSE 96; RESP 16
[2018-12-27] MEDS: HYDROmorphONE 1 MG/ML SYG IV PRN (11:27)
--- NOTE | 2018-12-27 13:16 | PN ---
Date/Time of Note Date/Time of Note DATE: 12/27/18 TIME: 13:13 Assessment/Plan VTE Prophylaxis Risk score (from Ns)>0 risk: 7 SCD applied (from Ns): Yes Pharmacological prophylaxis: NA/contraindicated Pharm contraindication: bleeding Lines/Catheters [facility] Saline Lock Assessment/Plan Hospital Course Assessment/Plan Assessment: Upper abdominal pain postprandial -s/p EGD 12/24/18-hepatitis, gastritis, biopsies obtained to rule out H. pylori. A-Prominent ampulla of Vater, biopsy: -- Ampulla mucosa showing no significant histopathological abnormality. B-Stomach, antrum/body, biopsy: -- Antral mucosa showing moderate chronic gastritis with mild active inflammation and benign lymphoid aggregate. -- No Helicobacter pylori is identified in Giemsa stain (positive control concurrently reviewed). -- No evidence of intestinal metaplasia, dysplasia or malignancy. Nausea- improved Hematochezia- resolved -s/p colonoscopy 12/24/18-internal hemorrhoids otherwise normal colonoscopy Pancreatic cancer -ongoing chemotherapy Thrombocytopenia History of gastric cancer Macrocytic anemia Hypothyroidism Plan: PPI to BID Hgb trending down- without overt signs of GI bleed- will transfuse 1 unit PRBC's Continue Levlali and Reglan Patient seen in collaboration with Dr. Calvert Subjective: Repeat CBC yesterday confirms drop- patient had chemotherapy about 1 week ago. Hospitalist spoke to Hem/Onc has been started on Neupogen. Patient states she feels a little better today, Had x1 small BM - no overt signs of GI bleed. PHYSICAL EXAMINATION: GENERAL: Ill-appearing, alert & oriented x 3, in no acute distress SKIN: No lesions, no stigmata chronic liver disease, no evidence of bleeding diathesis HEAD: Normocephalic, atraumatic, no tenderness. EYES: Pupils equal reactive to light and accommodation, full extraocular movements, sclera clear, non-icteric, no discharge. EARS/NOSE AND THROAT: Ears normal, nose normal, oropharynx normal, oral membranes well hydrated without lesions. NECK: Supple, no masses, thyroid normal CHEST: Inspection within normal limits. CARDIOVASCULAR: Heart: Regular rate and rhythm, murmurs, gallops or rubs. RESPIRATORY: Lungs clear to auscultation GASTROINTESTINAL AND LIVER: Abdomen: Soft, mild upper abd tenderness, non- distended, no hernias, no masses, no organomegaly, no ascites, no guarding, no rebound tenderness, normoactive bowel sounds. Rectal: Deferred. GENITOURINARY: Female genitalia within normal limits. EXTREMITIES: No cyanosis, clubbing or edema. Result Diagram: 12/27/18 0513 12/27/18 0513 Results 24hrs Laboratory Tests Test 12/27/18 05:13 White Blood Count 0.9 #L Red Blood Count 2.16 L Hemoglobin 7.4 L Hematocrit 22.2 L Mean Corpuscular Volume 102.8 H Mean Corpuscular Hemoglobin 34.3 H Mean Corpuscular Hemoglobin Concent 33.3 Red Cell Distribution Width 14.0 Platelet Count 62 L Mean Platelet Volume 11.6 H Immature Granulocytes % 3.200 H Neutrophils % Segmented Neutrophils % (Manual) 1 L Lymphocytes % Lymphocytes % (Manual) 74 H Reactive Lymphocytes % (Manual) 1 H Monocytes % Monocytes % (Manual) 19 H Eosinophils % Eosinophils % (Manual) 2 Basophils % Basophils % (Manual) 2 Nucleated Red Blood Cells % 0.0 Immature Granulocytes # 0.030 Neutrophils # Lymphocytes (Manual) 0.6 L Lymphocytes # Reactive Lymphocytes # 0.0 Monocytes # Monocytes # (Manual) 0.1 L Eosinophils # Basophils # Basophils # (Manual) 0.0 Nucleated Red Blood Cells # White Cell Morphology Comment @See below Giant Platelets 21 H Red Cell Morphology Comment @See below Path Consult Signing Pathologist GURINDER PARDO MD Sodium Level 135 Potassium Level 3.7 Chloride Level 104 Carbon Dioxide Level 26 Anion Gap 5 Blood Urea Nitrogen 13 Creatinine 0.57 Est Glomerular Filtrat Rate mL/min > 60 Glucose Level 91 Calcium Level 8.3 L Phosphorus Level 2.8 Magnesium Level 1.8 Exam/Review of Systems Exam Vitals Vital Signs Date Temp Pulse Resp B/P (MAP) Pulse Ox O2 O2 Flow FiO2 Time Delivery Rate 12/27/18 98.8 96 16 111/54 98 09:14 (73) 12/26/18 Room Air 01:55 12/24/18 15.0 15:00 Intake and Output 12/26/18 12/26/18 12/27/18 1515:00 23:00 07:00 IntakeIntake Total 480 ml 240 ml 168 ml BalanceBalance 480 ml 240 ml 168 ml Results Results 24hrs Laboratory Tests Test 12/27/18 05:13 White Blood Count 0.9 #L Red Blood Count 2.16 L Hemoglobin 7.4 L Hematocrit 22.2 L Mean Corpuscular Volume 102.8 H Mean Corpuscular Hemoglobin 34.3 H Mean Corpuscular Hemoglobin Concent 33.3 Red Cell Distribution Width 14.0 Platelet Count 62 L Mean Platelet Volume 11.6 H Immature Granulocytes % 3.200 H Neutrophils % Segmented Neutrophils % (Manual) 1 L Lymphocytes % Lymphocytes % (Manual) 74 H Reactive Lymphocytes % (Manual) 1 H Monocytes % Monocytes % (Manual) 19 H Eosinophils % Eosinophils % (Manual) 2 Basophils % Basophils % (Manual) 2 Nucleated Red Blood Cells % 0.0 Immature Granulocytes # 0.030 Neutrophils # Lymphocytes (Manual) 0.6 L Lymphocytes # Reactive Lymphocytes # 0.0 Monocytes # Monocytes # (Manual) 0.1 L Eosinophils # Basophils # Basophils # (Manual) 0.0 Nucleated Red Blood Cells # White Cell Morphology Comment @See below Giant Platelets 21 H Red Cell Morphology Comment @See below Path Consult Signing Pathologist GURINDER PARDO MD Sodium Level 135 Potassium Level 3.7 Chloride Level 104 Carbon Dioxide Level 26 Anion Gap 5 Blood Urea Nitrogen 13 Creatinine 0.57 Est Glomerular Filtrat Rate mL/min > 60 Glucose Level 91 Calcium Level 8.3 L Phosphorus Level 2.8 Magnesium Level 1.8 Medications Medication Current Medications IV Flush (NS 3 ml) 3 ml PER PROTOCOL IV ; Start 12/21/18 at 20:30 Ondansetron HCl (Zofran Inj) 4 mg Q6H PRN IV NAUSEA/VOMITING Last administered on 12/23/18at 20:02; Admin Dose 4 MG; Start 12/21/18 at 20:30 Acetaminophen (Tylenol Tab) 650 mg Q6H PRN PO .PAIN 1-3 OR TEMP Last admini stered on 12/26/18at 02:00; Admin Dose 650 MG; Start 12/21/18 at 20:30 Hydralazine HCl (Apresoline) 10 mg Q4H PRN IV SBP>170 Last administered on 12/21/18at 22:44; Admin Dose 10 MG; Start 12/21/18 at 22:30 Levothyroxine Sodium (Synthroid) 100 mcg BEFORE BREAKFAST PO Last administered on 12/27/18 06:29; Admin Dose 100 MCG; Start 12/22/18 at 07:00 Hydromorphone HCl (Dilaudid) 2 mg Q4H PRN IV BREAKTHROUGH PAIN Last administered on 12/27/18 11:27; Admin Dose 2 MG; Start 12/22/18 at 12:00 Hyoscyamine (Levsin (Sl)) 0.125 mg Q8 PO Last administered on 12/27/18 06:29; Admin Dose 0.125 MG; Start 12/22/18 at 14:00 Metoclopramide HCl (Reglan) 10 mg Q6 IV Last administered on 12/27/18 11:26; Admin Dose 10 MG; Start 12/22/18 at 12:00 Diphenhydramine HCl (Benadryl) 25 mg Q6H PRN PO ITCHING Last administered on 12/23/18 18:57; Admin Dose 25 MG; Start 12/22/18 at 12:18 Methadone HCl (Methadone Liq) 1 mg Q8 PO Last administered on 12/27/18 06:29; Admin Dose 1 MG; Start 12/24/18 at 14:00 Pantoprazole (Protonix Tab) 40 mg BID@06,18 PO Last administered on 12/27/18 06:30; Admin Dose 40 MG; Start 12/25/18 at 18:00 Ceftriaxone Sodium 50 ml @ 100 mls/hr Q24H IVPB Last administered on 12/27/18 02:50; Admin Dose 100 MLS/HR; Start 12/26/18 at 03:00 Filgrastim (Nivestym) 300 mcg DAILY@1700 SC Last administered on 12/26/18 18:09; Admin Dose 300 MCG; Start 12/26/18 at 17:00 JUNIOR GÓMEZ Dec 27, 2018 13:15
--- NOTE | 2018-12-27 14:23 | PN ---
Date/Time of Note Date/Time of Note DATE: 12/27/18 TIME: 14:21 Assessment/Plan VTE Prophylaxis Risk score (from Nsg)>0 risk: 7 SCD applied (from Nsg): Yes Pharmacological prophylaxis: other Lines/Catheters IV Catheter Type (from Nrsg): Saline Lock Assessment/Plan Hospital Course S: Pt received Neupogen medication yesterday. Presently order for PRBC transfusion by GI team today given the low hemoglobin today. Otherwise no other acute events overnight. O: VS - see below PE: General: Patient is currently lying in bed, sitting up, awake, conversant. HEENT: Atraumatic, normocephalic. The pupils are equal, round and reactive. Extraocular motor are intact Neck: Supple with full range of motion. No rigidity or meningismus Chest: Right chest Port-A-Cath Lungs: Clear to auscultation bilaterally no crackles rales or wheezing Heart: Sinus tachycardia Abdomen: Soft , generalized tenderness to palpation, bowel sounds are present. No guarding no rebound tenderness , Extremities: Normal to inspection, no edema no cyanosis Assessment/Plan: 63 yo woman with pancreatic cancer who presents with intractable pain and GI bleed. #1 lower GI bleed: Reported bright red blood and has history of hemorrhoids. Seen by GI team, again-s/p EGD 12/24/18-hepatitis, gastritis, biopsies obtained to rule out H. pylori-s/p colonoscopy 12/24/18-internal hemorrhoids otherwise normal colonoscopy -Continue diet per GI recommendations, monitor for any further bleeding -Continue physical therapy #2 intractable abdominal pain- Due to pancreatic cancer -Continue methadone low-dose as ordered by pain management team today -Also for now continue with IV Dilaudid 2 mg every 4 hours as needed. Titrate as needed. #3 pancreatic cancer: Has gone through chemotherapy. Followed by outpatient deblocker. Started on Neupogen yesterday for leukopenia -Continue current antibiotics, continue Neupogen per hematology oncology orders daily -Monitor WBC levels #4 history of stomach cancer: Followed by hematology as an outpatient. #5 hypothyroidism: Continue levothyroxine #6 normocytic anemia: Secondary to underlying GI bleed and anemia of chronic disease secondary to cancer. Please see #1. #7 DVT GI prophylaxis: SCDs, Protonix CODE STATUS: DNR/DNI. Family is amenable to hospice care if condition worsens. Result Diagram: 12/27/18 0513 12/27/18 0513 Results 24hrs Laboratory Tests Test 12/27/18 05:13 White Blood Count 0.9 #L Red Blood Count 2.16 L Hemoglobin 7.4 L Hematocrit 22.2 L Mean Corpuscular Volume 102.8 H Mean Corpuscular Hemoglobin 34.3 H Mean Corpuscular Hemoglobin Concent 33.3 Red Cell Distribution Width 14.0 Platelet Count 62 L Mean Platelet Volume 11.6 H Immature Granulocytes % 3.200 H Neutrophils % Segmented Neutrophils % (Manual) 1 L Lymphocytes % Lymphocytes % (Manual) 74 H Reactive Lymphocytes % (Manual) 1 H Monocytes % Monocytes % (Manual) 19 H Eosinophils % Eosinophils % (Manual) 2 Basophils % Basophils % (Manual) 2 Nucleated Red Blood Cells % 0.0 Immature Granulocytes # 0.030 Neutrophils # Lymphocytes (Manual) 0.6 L Lymphocytes # Reactive Lymphocytes # 0.0 Monocytes # Monocytes # (Manual) 0.1 L Eosinophils # Basophils # Basophils # (Manual) 0.0 Nucleated Red Blood Cells # White Cell Morphology Comment @See below Giant Platelets 21 H Red Cell Morphology Comment @See below Path Consult Signing Pathologist GURINDER PARDO MD Sodium Level 135 Potassium Level 3.7 Chloride Level 104 Carbon Dioxide Level 26 Anion Gap 5 Blood Urea Nitrogen 13 Creatinine 0.57 Est Glomerular Filtrat Rate mL/min > 60 Glucose Level 91 Calcium Level 8.3 L Phosphorus Level 2.8 Magnesium Level 1.8 Exam/Review of Systems Exam Vitals Vital Signs Date Temp Pulse Resp B/P (MAP) Pulse Ox O2 O2 Flow FiO2 Time Delivery Rate 12/27/18 98.8 96 16 111/54 98 09:14 (73) 12/26/18 Room Air 01:55 12/24/18 15.0 15:00 Intake and Output 12/26/18 12/26/18 12/27/18 1515:00 23:00 07:00 IntakeIntake Total 480 ml 240 ml 168 ml BalanceBalance 480 ml 240 ml 168 ml Results Results 24hrs Laboratory Tests Test 12/27/18 05:13 White Blood Count 0.9 #L Red Blood Count 2.16 L Hemoglobin 7.4 L Hematocrit 22.2 L Mean Corpuscular Volume 102.8 H Mean Corpuscular Hemoglobin 34.3 H Mean Corpuscular Hemoglobin Concent 33.3 Red Cell Distribution Width 14.0 Platelet Count 62 L Mean Platelet Volume 11.6 H Immature Granulocytes % 3.200 H Neutrophils % Segmented Neutrophils % (Manual) 1 L Lymphocytes % Lymphocytes % (Manual) 74 H Reactive Lymphocytes % (Manual) 1 H Monocytes % Monocytes % (Manual) 19 H Eosinophils % Eosinophils % (Manual) 2 Basophils % Basophils % (Manual) 2 Nucleated Red Blood Cells % 0.0 Immature Granulocytes # 0.030 Neutrophils # Lymphocytes (Manual) 0.6 L Lymphocytes # Reactive Lymphocytes # 0.0 Monocytes # Monocytes # (Manual) 0.1 L Eosinophils # Basophils # Basophils # (Manual) 0.0 Nucleated Red Blood Cells # White Cell Morphology Comment @See below Giant Platelets 21 H Red Cell Morphology Comment @See below Path Consult Signing Pathologist GURINDER PARDO MD Sodium Level 135 Potassium Level 3.7 Chloride Level 104 Carbon Dioxide Level 26 Anion Gap 5 Blood Urea Nitrogen 13 Creatinine 0.57 Est Glomerular Filtrat Rate mL/min > 60 Glucose Level 91 Calcium Level 8.3 L Phosphorus Level 2.8 Magnesium Level 1.8 Medications Medication Current Medications IV Flush (NS 3 ml) 3 ml PER PROTOCOL IV ; Start 12/21/18 at 20:30 Ondansetron HCl (Zofran Inj) 4 mg Q6H PRN IV NAUSEA/VOMITING Last administered on 12/23/18 20:02; Admin Dose 4 MG; Start 12/21/18 at 20:30 Acetaminophen (Tylenol Tab) 650 mg Q6H PRN PO .PAIN 1-3 OR TEMP Last administered on 12/26/18 02:00; Admin Dose 650 MG; Start 12/21/18 at 20:30 Hydralazine HCl (Apresoline) 10 mg Q4H PRN IV SBP>170 Last administered on 12/21/18 22:44; Admin Dose 10 MG; Start 12/21/18 at 22:30 Levothyroxine Sodium (Synthroid) 100 mcg BEFORE BREAKFAST PO Last administered on 12/27/18 06:29; Admin Dose 100 MCG; Start 12/22/18 at 07:00 Hydromorphone HCl (Dilaudid) 2 mg Q4H PRN IV BREAKTHROUGH PAIN Last administered on 12/27/18 11:27; Admin Dose 2 MG; Start 12/22/18 at 12:00 Hyoscyamine (Levsin (Sl)) 0.125 mg Q8 PO Last administered on 12/27/18 06:29; Admin Dose 0.125 MG; Start 12/22/18 at 14:00 Metoclopramide HCl (Reglan) 10 mg Q6 IV Last administered on 12/27/18 11:26; Admin Dose 10 MG; Start 12/22/18 at 12:00 Diphenhydramine HCl (Benadryl) 25 mg Q6H PRN PO ITCHING Last administered on 12/23/18 18:57; Admin Dose 25 MG; Start 12/22/18 at 12:18 Methadone HCl (Methadone Liq) 1 mg Q8 PO Last administered on 12/27/18 06:29; Admin Dose 1 MG; Start 12/24/18 at 14:00 Pantoprazole (Protonix Tab) 40 mg BID@06,18 PO Last administered on 12/27/18 06:30; Admin Dose 40 MG; Start 12/25/18 at 18:00 Ceftriaxone Sodium 50 ml @ 100 mls/hr Q24H IVPB Last administered on 12/27/18 02:50; Admin Dose 100 MLS/HR; Start 12/26/18 at 03:00 Filgrastim (Nivestym) 300 mcg DAILY@1700 SC Last administered on 12/26/18 18:09; Admin Dose 300 MCG; Start 12/26/18 at 17:00 ROGER RBOOKS Dec 27, 2018 14:23
[2018-12-27 14:31] VITALS: BP 118/57; PULSE 89; RESP 17
[2018-12-27] MEDS: FILGRASTIM-AAFI 300 MCG/0.5 ML SYRINGE SC SCH (17:29)
[2018-12-27 20:13] VITALS: BP 110/58; PULSE 94; RESP 16
[2018-12-28 02:08] VITALS: BP 99/55; PULSE 85; RESP 17
[2018-12-28] MEDS: CEFTRIAXONE 1 GM/50 ML (PMX) 50 ML IVPB SCH (03:10)
[2018-12-28] MEDS: METOCLOPRAMIDE 10 MG INJ IV SCH ×3 (06:28→17:36)
[2018-12-28] MEDS: PANTOPRAZOLE (EC) 40 MG TAB PO SCH ×2 (06:28→17:36)
[2018-12-28] MEDS: LEVOTHYROXINE 100 MCG TAB PO SCH (06:28)
[2018-12-28] MEDS: HYOSCYAMINE 0.125 MG SUBL TAB PO SCH ×3 (06:28→22:12)
[2018-12-28] MEDS: METHADONE (1 MG/ML 5 ML PO UD SYG) PO SCH ×3 (06:30→22:14)
[2018-12-28 08:08] VITALS: BP 89/52; PULSE 84; RESP 14
[2018-12-28] MEDS: HYDROmorphONE 1 MG/ML SYG IV PRN (09:48)
[2018-12-28] MEDS ORDERED: POTASSIUM PHOSPHATE 20 MEQ in SOD CHLORIDE 0.9% 250 ML IVPB ONE (10:00)
--- NOTE | 2018-12-28 12:36 | CONS ---
DATE OF ADMISSION: 12/22/2018 DATE OF CONSULTATION: 12/28/2018 REASON FOR EVALUATION: Advanced inoperable pancreatic carcinoma, now lower GI bleed fresh blood per rectum. HISTORY OF PRESENT ILLNESS: This is a 63-year-old female with history of pancreatic cancer diagnosed back in 2016. Initially she was treated by Dr. Ca with Gemzar for a lot of time, th there were insurance issues and they switched her care over the past 2 years to our practice. The patient has advanced inoperable pancreatic carcinoma. She was on 223 and 2 years gemcitabine. Sin ce 07/2018. The disease progression has been on Abraxane chemotherapy per protocol with acceptable re sponse and a partial response/stable disease. Patient comes to [facility] due to a 2 to 3 weeks history of lower GI bleed fresh blood per rectum. Initially supposed to see a GI speci alist, but appointment was very late, in the end of January, for which the bleeding worsened and start ed to be associated with abdominal discomfort, nausea, abdominal pain and repeated bleed, comes to [facility]. For gastrointestinal evaluation. No active bleeding at this time a bit better . Pl an for colonoscopy. No chest pain, no shortness of breath. PAST MEDICAL HISTORY: Diabetes mellitus. PAST SURGICAL HISTORY: 20 years ago, thyroidectomy for thyroid cancer, history of radioactive iodine . FAMILY HISTORY: Grandmother, pancreatic cancer, a sister, thyroid cancer. SOCIAL HISTORY: . She has 2 sons and 4 daughters. PHYSICAL EXAMINATION: VITAL SIGNS: Temperature 96, respirations 18, pulse of 80, BP 125/70. No cervical nodes, no axillar y nodes. CHEST: Clear. HEART: Normal S1, S2. ABDOMEN: Soft, but distended. EXTREMITIES: No leg edema. Labs and scans per EMR. ASSESSMENT AND PLAN: A 63-year-old female. DIAGNOSES 1. Advanced inoperable pancreatic carcinoma, received the Gemzar for over 2 years, currently switche d to Abraxane since beginning of 2018 with stable disease favorable partial response. 2. Admitted for lower GI bleed fresh blood per rectum. Plan n.p.o. GI evaluation and colonoscopy to see whether there is tumor cancer or diverticular disease, polyps, inflammation colitis, ulcers. 3. Keep eye on CBC. 4. Growth factor support for neutropenia Neupogen or Zarxio. Keep hemoglobin above 8, hematocrit ab ove 24. Keep platelets above 75,000. Since the patient's bleeding keep white cells above 3000. Dictated By: AUSTYN FIGUEREDO Conf#: [id number] DID#: [id number]
[2018-12-28 14:00] VITALS: BP 99/58; PULSE 85; RESP 20
--- NOTE | 2018-12-28 14:26 | PN ---
Date/Time of Note Date/Time of Note DATE: 12/28/18 TIME: 14:21 Assessment/Plan VTE Prophylaxis Risk score (from Nsg)>0 risk: 5 SCD applied (from Nsg): Yes Pharmacological prophylaxis: other Lines/Catheters IV Catheter Type (from Nrsg): Saline Lock Assessment/Plan Hospital Course S: Pt tolerating diet, appears to have slightly more energy today. Seen by hematology oncology team earlier. O: VS - see below PE: General: Patient is currently lying in bed, family at bedside HEENT: Atraumatic, normocephalic. The pupils are equal, round and reactive. Extraocular motor are intact Neck: Supple with full range of motion. No rigidity or meningismus Chest: Right chest Port-A-Cath Lungs: Clear to auscultation bilaterally no crackles rales or wheezing Heart: Sinus tachycardia Abdomen: Soft , generalized tenderness to palpation, bowel sounds are present. No guarding no rebound tenderness , Extremities: Normal to inspection, no edema no cyanosis Assessment/Plan: 63 yo woman with pancreatic cancer who presents with intractable pain and GI bleed. #1 lower GI bleed: Reported bright red blood and has history of hemorrhoids. Seen by GI team, again-s/p EGD 12/24/18-hepatitis, gastritis, biopsies obtained to rule out H. pylori-s/p colonoscopy 12/24/18-internal hemorrhoids otherwise normal colonoscopy -Continue diet per GI recommendations, monitor for any further bleeding -Continue physical therapy #2 intractable abdominal pain- Due to pancreatic cancer -Continue methadone low-dose as ordered by pain management team -Also for now continue with IV Dilaudid 2 mg every 4 hours as needed. Titrate as needed. #3 pancreatic cancer: Has gone through chemotherapy. Followed by outpatient operations associate. Started on Neupogen 2 days ago for leukopenia -Continue current antibiotics, continue Neupogen per hematology oncology orders daily -Monitor WBC levels #4 history of stomach cancer: Followed by hematology as an outpatient. #5 hypothyroidism: Continue levothyroxine #6 normocytic anemia: Secondary to underlying GI bleed and anemia of chronic disease secondary to cancer. Please see #1. #7 DVT GI prophylaxis: SCDs, Protonix CODE STATUS: DNR/DNI. Family is amenable to hospice care if condition worsens. Result Diagram: 12/28/18 0507 12/28/18 0507 Results 24hrs Laboratory Tests Test 12/28/18 05:07 White Blood Count 1.8 #L Red Blood Count 2.37 L Hemoglobin 8.1 L Hematocrit 23.5 L Mean Corpuscular Volume 99.2 Mean Corpuscular Hemoglobin 34.2 H Mean Corpuscular Hemoglobin Concent 34.5 Red Cell Distribution Width 14.4 Platelet Count 68 L Mean Platelet Volume 11.5 H Immature Granulocytes % 0.600 H Neutrophils % Segmented Neutrophils % (Manual) 4 L Band Neutrophils % (Manual) 5 H Lymphocytes % Lymphocytes % (Manual) 68 H Monocytes % Monocytes % (Manual) 14 H Eosinophils % Eosinophils % (Manual) 3 Basophils % Promyelocytes % (Manual) 6 H Nucleated Red Blood Cells % 2 H Immature Granulocytes # 0.010 Neutrophils # Neutrophils # (Manual) 0.1 L Band Neutrophils # 0.0 Lymphocytes (Manual) 1.2 Lymphocytes # Monocytes # Monocytes # (Manual) 0.2 L Eosinophils # Basophils # Promyelocytes # 0.1 H Nucleated Red Blood Cells # Platelet Estimate DECREASED Giant Platelets 36 H Poikilocytosis 3+ Anisocytosis 2+ Macrocytosis 2+ Sodium Level 136 Potassium Level 3.7 Chloride Level 106 Carbon Dioxide Level 26 Anion Gap 4 L Blood Urea Nitrogen 8 Creatinine 0.56 Est Glomerular Filtrat Rate mL/min > 60 Glucose Level 87 Calcium Level 8.4 Phosphorus Level 2.4 L Magnesium Level 1.8 Exam/Review of Systems Exam Vitals Vital Signs Date Temp Pulse Resp B/P (MAP) Pulse Ox O2 O2 Flow FiO2 Time Delivery Rate 12/28/18 98.5 84 14 89/52 (64 95 08:08 12/26/18 Room Air 01:55 12/24/18 15.0 15:00 Intake and Output 12/27/18 12/27/18 12/28/18 1515:00 23:00 07:00 IntakeIntake Total 320 ml 500 ml 400 ml BalanceBalance 320 ml 500 ml 400 ml Results Results 24hrs Laboratory Tests Test 12/28/18 05:07 White Blood Count 1.8 #L Red Blood Count 2.37 L Hemoglobin 8.1 L Hematocrit 23.5 L Mean Corpuscular Volume 99.2 Mean Corpuscular Hemoglobin 34.2 H Mean Corpuscular Hemoglobin Concent 34.5 Red Cell Distribution Width 14.4 Platelet Count 68 L Mean Platelet Volume 11.5 H Immature Granulocytes % 0.600 H Neutrophils % Segmented Neutrophils % (Manual) 4 L Band Neutrophils % (Manual) 5 H Lymphocytes % Lymphocytes % (Manual) 68 H Monocytes % Monocytes % (Manual) 14 H Eosinophils % Eosinophils % (Manual) 3 Basophils % Promyelocytes % (Manual) 6 H Nucleated Red Blood Cells % 2 H Immature Granulocytes # 0.010 Neutrophils # Neutrophils # (Manual) 0.1 L Band Neutrophils # 0.0 Lymphocytes (Manual) 1.2 Lymphocytes # Monocytes # Monocytes # (Manual) 0.2 L Eosinophils # Basophils # Promyelocytes # 0.1 H Nucleated Red Blood Cells # Platelet Estimate DECREASED Giant Platelets 36 H Poikilocytosis 3+ Anisocytosis 2+ Macrocytosis 2+ Sodium Level 136 Potassium Level 3.7 Chloride Level 106 Carbon Dioxide Level 26 Anion Gap 4 L Blood Urea Nitrogen 8 Creatinine 0.56 Est Glomerular Filtrat Rate mL/min > 60 Glucose Level 87 Calcium Level 8.4 Phosphorus Level 2.4 L Magnesium Level 1.8 Medications Medication Current Medications IV Flush (NS 3 ml) 3 ml PER PROTOCOL IV ; Start 12/21/18 at 20:30 Ondansetron HCl (Zofran Inj) 4 mg Q6H PRN IV NAUSEA/VOMITING Last administered on 12/23/18 20:02; Admin Dose 4 MG; Start 12/21/18 at 20:30 Acetaminophen (Tylenol Tab) 650 mg Q6H PRN PO .PAIN 1-3 OR TEMP Last administered on 12/26/18 02:00; Admin Dose 650 MG; Start 12/21/18 at 20:30 Hydralazine HCl (Apresoline) 10 mg Q4H PRN IV SBP>170 Last administered on 12/21/18 22:44; Admin Dose 10 MG; Start 12/21/18 at 22:30 Levothyroxine Sodium (Synthroid) 100 mcg BEFORE BREAKFAST PO Last administered on 12/28/18 06:28; Admin Dose 100 MCG; Start 12/22/18 at 07:00 Hydromorphone HCl (Dilaudid) 2 mg Q4H PRN IV BREAKTHROUGH PAIN Last administered on 12/28/18 09:48; Admin Dose 2 MG; Start 12/22/18 at 12:00 Hyoscyamine (Levsin (Sl)) 0.125 mg Q8 PO Last administered on 12/28/18 06:28; Admin Dose 0.125 MG; Start 12/22/18 at 14:00 Metoclopramide HCl (Reglan) 10 mg Q6 IV Last administered on 12/28/18 12:09; Admin Dose 10 MG; Start 12/22/18 at 12:00 Diphenhydramine HCl (Benadryl) 25 mg Q6H PRN PO ITCHING Last administered on 12/23/18 18:57; Admin Dose 25 MG; Start 12/22/18 at 12:18 Methadone HCl (Methadone Liq) 1 mg Q8 PO Last administered on 12/28/18 06:30; Admin Dose 1 MG; Start 12/24/18 at 14:00 Pantoprazole (Protonix Tab) 40 mg BID@06,18 PO Last administered on 12/28/18 06:28; Admin Dose 40 MG; Start 12/25/18 at 18:00 Ceftriaxone Sodium 50 ml @ 100 mls/hr Q24H IVPB Last administered on 12/28/18 03:10; Admin Dose 100 MLS/HR; Start 12/26/18 at 03:00 Filgrastim (Nivestym) 300 mcg DAILY@1700 SC Last administered on 12/27/18 17:29; Admin Dose 300 MCG; Start 12/26/18 at 17:00 Simethicone (Mylicon) 80 mg Q6H PRN PO DISTENSION/GAS/BLOATING Last administered on 12/27/18 22:35; Admin Dose 80 MG; Start 12/27/18 at 22:00 ROGER BROOKS Dec 28, 2018 14:26
[2018-12-28] MEDS: ONDANSETRON 4 MG INJ IV PRN (14:35)
[2018-12-28] MEDS: FILGRASTIM-AAFI 300 MCG/0.5 ML SYRINGE SC SCH (17:37)
[2018-12-28 20:23] VITALS: BP 97/55; PULSE 83; RESP 18
[2018-12-29] MEDS: METOCLOPRAMIDE 10 MG INJ IV SCH ×2 (00:10→06:27)
[2018-12-29 02:31] VITALS: BP 96/49; PULSE 87; RESP 18
[2018-12-29] MEDS: CEFTRIAXONE 1 GM/50 ML (PMX) 50 ML IVPB SCH (03:10)
[2018-12-29] MEDS: PANTOPRAZOLE (EC) 40 MG TAB PO SCH ×2 (06:27→18:27)
[2018-12-29] MEDS: HYOSCYAMINE 0.125 MG SUBL TAB PO SCH (06:28)
[2018-12-29] MEDS: METHADONE (1 MG/ML 5 ML PO UD SYG) PO SCH ×3 (06:28→21:54)
[2018-12-29] MEDS: LEVOTHYROXINE 100 MCG TAB PO SCH (06:30)
[2018-12-29 07:38] VITALS: BP 90/54; PULSE 88; RESP 14
--- NOTE | 2018-12-29 10:52 | PN ---
Date/Time of Note Date/Time of Note DATE: 12/29/18 TIME: 10:50 Assessment/Plan VTE Prophylaxis Risk score (from Nsg)>0 risk: 5 SCD applied (from Nsg): Yes Pharmacological prophylaxis: other Lines/Catheters IV Catheter Type (from Nrsg): Port-A-Cath Assessment/Plan Hospital Course S: Pt complaining of some mild bloating symptoms this morning, otherwise tolerating diet. Waiting on CBC results. O: VS - see below PE: General: Patient is currently lying in bed, family at bedside HEENT: Atraumatic, normocephalic. The pupils are equal, round and reactive. Extraocular motor are intact Neck: Supple with full range of motion. No rigidity or meningismus Chest: Right chest Port-A-Cath Lungs: Clear to auscultation bilaterally no crackles rales or wheezing Heart: Sinus tachycardia Abdomen: Soft , generalized tenderness to palpation, bowel sounds are present. No guarding no rebound tenderness , Extremities: Normal to inspection, no edema no cyanosis Assessment/Plan: 63 yo woman with pancreatic cancer who presents with intractable pain and GI bleed. #1 lower GI bleed: Reported bright red blood and has history of hemorrhoids. Seen by GI team, again-s/p EGD 12/24/18-hepatitis, gastritis, biopsies obtained to rule out H. pylori-s/p colonoscopy 12/24/18-internal hemorrhoids otherwise normal colonoscopy -Continue diet per GI recommendations, monitor for any further bleeding -Continue physical therapy #2 intractable abdominal pain- Due to pancreatic cancer, pain symptoms slowly improving -Continue methadone low-dose as ordered by pain management team - continue with IV Dilaudid 2 mg every 4 hours as needed. Titrate as needed. -We will change Reglan to as needed #3 pancreatic cancer: Has gone through chemotherapy. 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 Started on Neupogen 23days ago for leukopenia -Continue current antibiotics, continue Neupogen per hematology oncology orders daily -Monitor WBC levels, CBC from this morning is pending #4 history of stomach cancer: Followed by hematology as an outpatient. #5 hypothyroidism: Continue levothyroxine #6 normocytic anemia: Secondary to underlying GI bleed and anemia of chronic disease secondary to cancer. Please see #1. #7 DVT GI prophylaxis: SCDs, Protonix CODE STATUS: DNR/DNI. Family is amenable to hospice care if condition worsens. Dispo: Likely home in 24 hours of her bloating symptoms improved, no fevers, and her white blood cell count is trending up to satisfactory range Result Diagram: 12/28/18 0507 12/28/18 0507 Exam/Review of Systems Exam Vitals Vital Signs Date Temp Pulse Resp B/P (MAP) Pulse Ox O2 O2 Flow FiO2 Time Delivery Rate 12/29/18 98.7 88 14 90/54 (66) 96 Room Air 07:38 Intake and Output 12/28/18 12/28/18 12/29/18 1515:00 23:00 07:00 IntakeIntake Total 440 ml [id number] ml 50 ml BalanceBalance 440 ml [id number] ml 50 ml Medications Medication Current Medications IV Flush (NS 3 ml) 3 ml PER PROTOCOL IV ; Start 12/21/18 at 20:30 Ondansetron HCl (Zofran Inj) 4 mg Q6H PRN IV NAUSEA/VOMITING Last administered on 12/28/18 14:35; Admin Dose 4 MG; Start 12/21/18 at 20:30 Acetaminophen (Tylenol Tab) 650 mg Q6H PRN PO .PAIN 1-3 OR TEMP Last administered on 12/26/18 02:00; Admin Dose 650 MG; Start 12/21/18 at 20:30 Hydralazine HCl (Apresoline) 10 mg Q4H PRN IV SBP>170 Last administered on 12/21/18 22:44; Admin Dose 10 MG; Start 12/21/18 at 22:30 Levothyroxine Sodium (Synthroid) 100 mcg BEFORE BREAKFAST PO Last administered on 12/29/18 06:30; Admin Dose 100 MCG; Start 12/22/18 at 07:00 Hydromorphone HCl (Dilaudid) 2 mg Q4H PRN IV BREAKTHROUGH PAIN Last administered on 12/28/18 09:48; Admin Dose 2 MG; Start 12/22/18 at 12:00 Hyoscyamine (Levsin (Sl)) 0.125 mg Q8 PO Last administered on 12/29/18 06:28; Admin Dose 0.125 MG; Start 12/22/18 at 14:00 Metoclopramide HCl (Reglan) 10 mg Q6 IV Last administered on 12/29/18 06:27; Admin Dose 10 MG; Start 12/22/18 at 12:00 Diphenhydramine HCl (Benadryl) 25 mg Q6H PRN PO ITCHING Last administered on 12/23/18 18:57; Admin Dose 25 MG; Start 12/22/18 at 12:18 Methadone HCl (Methadone Liq) 1 mg Q8 PO Last administered on 12/29/18 06:28; Admin Dose 1 MG; Start 12/24/18 at 14:00 Pantoprazole (Protonix Tab) 40 mg BID@06,18 PO Last administered on 12/29/18 06:27; Admin Dose 40 MG; Start 12/25/18 at 18:00 Ceftriaxone Sodium 50 ml @ 100 mls/hr Q24H IVPB Last administered on 12/29/18 03:10; Admin Dose 100 MLS/HR; Start 12/26/18 at 03:00 Filgrastim (Nivestym) 300 mcg DAILY@1700 SC Last administered on 12/28/18 17:37; Admin Dose 300 MCG; Start 12/26/18 at 17:00 Simethicone (Mylicon) 80 mg Q6H PRN PO DISTENSION/GAS/BLOATING Last administered on 12/29/18 09:48; Admin Dose 80 MG; Start 12/27/18 at 22:00 ROGER BROOKS Dec 29, 2018 10:52
[2018-12-29] MEDS ORDERED: METOCLOPRAMIDE 10 MG INJ IV PRN (11:00)
--- NOTE | 2018-12-29 12:03 | PN ---
Date/Time of Note Date/Time of Note DATE: 12/29/18 TIME: 11:54 Assessment/Plan VTE Prophylaxis Risk score (from Ns)>0 risk: 5 SCD applied (from Ns): Yes Pharmacological prophylaxis: NA/contraindicated Pharm contraindication: thrombocytopenia Lines/Catheters IV Catheter Type (from [email or web address] Port-A-Cath Assessment/Plan Hospital Course Assessment/Plan Assessment: Upper abdominal pain postprandial -s/p EGD 12/24/18-hepatitis, gastritis, biopsies obtained to rule out H. pylori. A-Prominent ampulla of Vater, biopsy: -- Ampulla mucosa showing no significant histopathological abnormality. B-Stomach, antrum/body, biopsy: -- Antral mucosa showing moderate chronic gastritis with mild active inflammation and benign lymphoid aggregate. -- No Helicobacter pylori is identified in Giemsa stain (positive control concurrently reviewed). -- No evidence of intestinal metaplasia, dysplasia or malignancy. Nausea- improved Hematochezia- resolved -s/p colonoscopy 12/24/18-internal hemorrhoids otherwise normal colonoscopy Pancreatic cancer -ongoing chemotherapy Thrombocytopenia History of gastric cancer Macrocytic anemia Hypothyroidism Plan: Continue current regimen Monitor labs GI will sign off but will be available upon reconsult as needed Patient seen in collaboration with Dr. Calvert Subjective: HGb has improved, pt states she is feeling better today, does c./o some gas- has simethicone PRN has not used it Family at bedside. No current c/o n/v or abd pain. Has occasional BRBPR- will start Anusol PHYSICAL EXAMINATION: GENERAL: Ill-appearing, alert & oriented x 3, in no acute distress SKIN: No lesions, no stigmata chronic liver disease, no evidence of bleeding diathesis HEAD: Normocephalic, atraumatic, no tenderness. EYES: Pupils equal reactive to light and accommodation, full extraocular movements, sclera clear, non-icteric, no discharge. EARS/NOSE AND THROAT: Ears normal, nose normal, oropharynx normal, oral membranes well hydrated without lesions. NECK: Supple, no masses, thyroid normal CHEST: Inspection within normal limits. CARDIOVASCULAR: Heart: Regular rate and rhythm, murmurs, gallops or rubs. RESPIRATORY: Lungs clear to auscultation GASTROINTESTINAL AND LIVER: Abdomen: Soft, mild upper abd tenderness- improved, non-distended, no hernias, no masses, no organomegaly, no ascites, no guarding, no rebound tenderness, normoactive bowel sounds. Rectal: Deferred. GENITOURINARY: Female genitalia within normal limits. EXTREMITIES: No cyanosis, clubbing or edema. Result Diagram: 12/29/18 1121 12/28/18 0507 Results 24hrs Laboratory Tests Test 12/29/18 11:21 White Blood Count 7.5 # Red Blood Count 2.80 L Hemoglobin 9.7 L Hematocrit 28.5 #L Mean Corpuscular Volume 101.8 H Mean Corpuscular Hemoglobin 34.6 H Mean Corpuscular Hemoglobin Concent 34.0 Red Cell Distribution Width 14.7 H Platelet Count 96 #L Mean Platelet Volume 11.1 H Immature Granulocytes % 6.900 H Neutrophils % Lymphocytes % Monocytes % Eosinophils % Basophils % Nucleated Red Blood Cells % 0.0 Immature Granulocytes # 0.520 H Neutrophils # Lymphocytes # Monocytes # Eosinophils # Basophils # Nucleated Red Blood Cells # Exam/Review of Systems Exam Vitals Vital Signs Date Temp Pulse Resp B/P (MAP) Pulse Ox O2 O2 Flow FiO2 Time Delivery Rate 12/29/18 98.7 88 14 90/54 (66) 96 Room Air 07:38 Intake and Output 12/28/18 12/28/18 12/29/18 1515:00 23:00 07:00 IntakeIntake Total 440 ml [id number] ml 50 ml BalanceBalance 440 ml [id number] ml 50 ml Results Results 24hrs Laboratory Tests Test 12/29/18 11:21 White Blood Count 7.5 # Red Blood Count 2.80 L Hemoglobin 9.7 L Hematocrit 28.5 #L Mean Corpuscular Volume 101.8 H Mean Corpuscular Hemoglobin 34.6 H Mean Corpuscular Hemoglobin Concent 34.0 Red Cell Distribution Width 14.7 H Platelet Count 96 #L Mean Platelet Volume 11.1 H Immature Granulocytes % 6.900 H Neutrophils % Lymphocytes % Monocytes % Eosinophils % Basophils % Nucleated Red Blood Cells % 0.0 Immature Granulocytes # 0.520 H Neutrophils # Lymphocytes # Monocytes # Eosinophils # Basophils # Nucleated Red Blood Cells # Medications Medication Current Medications IV Flush (NS 3 ml) 3 ml PER PROTOCOL IV ; Start 12/21/18 at 20:30 Ondansetron HCl (Zofran Inj) 4 mg Q6H PRN IV NAUSEA/VOMITING Last administered on 7/19/19at 14:35; Admin Dose 4 MG; Start 12/21/18 at 20:30 Acetaminophen (Tylenol Tab) 650 mg Q6H PRN PO .PAIN 1-3 OR TEMP Last administered on 12/26/18 02:00; Admin Dose 650 MG; Start 12/21/18 at 20:30 Hydralazine HCl (Apresoline) 10 mg Q4H PRN IV SBP>170 Last administered on 12/21/18 22:44; Admin Dose 10 MG; Start 12/21/18 at 22:30 Levothyroxine Sodium (Synthroid) 100 mcg BEFORE BREAKFAST PO Last administered on 12/29/18 06:30; Admin Dose 100 MCG; Start 12/22/18 at 07:00 Hydromorphone HCl (Dilaudid) 2 mg Q4H PRN IV BREAKTHROUGH PAIN Last adminis tered on 12/28/18 09:48; Admin Dose 2 MG; Start 12/22/18 at 12:00 Hyoscyamine (Levsin (Sl)) 0.125 mg Q8 PO Last administered on 12/29/18 06:28; Admin Dose 0.125 MG; Start 12/22/18 at 14:00 Diphenhydramine HCl (Benadryl) 25 mg Q6H PRN PO ITCHING Last administered on 12/23/18 18:57; Admin Dose 25 MG; Start 12/22/18 at 12:18 Methadone HCl (Methadone Liq) 1 mg Q8 PO Last administered on 12/29/18 06:28; Admin Dose 1 MG; Start 12/24/18 at 14:00 Pantoprazole (Protonix Tab) 40 mg BID@06,18 PO Last administered on 12/29/18 06:27; Admin Dose 40 MG; Start 12/25/18 at 18:00 Ceftriaxone Sodium 50 ml @ 100 mls/hr Q24H IVPB Last administered on 12/29/18 03:10; Admin Dose 100 MLS/HR; Start 12/26/18 at 03:00 Filgrastim (Nivestym) 300 mcg DAILY@1700 SC Last administered on 12/28/18 17:37; Admin Dose 300 MCG; Start 12/26/18 at 17:00 Simethicone (Mylicon) 80 mg Q6H PRN PO DISTENSION/GAS/BLOATING Last administered on 12/29/18at 09:48; Admin Dose 80 MG; Start 12/27/18 at 22:00 Metoclopramide HCl (Reglan) 10 mg Q6H PRN IV NAUSEA; Start 12/29/18 at 11:00 JUNIOR GÓMEZ Dec 29, 2018 12:03
[2018-12-29] MEDS ORDERED: HYOSCYAMINE 0.125 MG SUBL TAB PO PRN (14:00)
[2018-12-29 14:53] VITALS: BP 113/91; PULSE 88; RESP 15
[2018-12-29] MEDS: FILGRASTIM-AAFI 300 MCG/0.5 ML SYRINGE SC SCH (16:59)
[2018-12-29 19:27] VITALS: BP 127/64; PULSE 97; RESP 16
[2018-12-29] MEDS ORDERED: SKIN RESP FACT/SHARK/PH MERCU SUPP PR PRN (21:00)
[2018-12-30 02:05] VITALS: BP 94/55; PULSE 89; RESP 16
[2018-12-30] MEDS: CEFTRIAXONE 1 GM/50 ML (PMX) 50 ML IVPB SCH (02:59)
[2018-12-30] MEDS: PANTOPRAZOLE (EC) 40 MG TAB PO SCH (05:51)
[2018-12-30] MEDS: LEVOTHYROXINE 100 MCG TAB PO SCH (05:51)
[2018-12-30] MEDS: METHADONE (1 MG/ML 5 ML PO UD SYG) PO SCH ×2 (05:53→14:17)
[2018-12-30 07:54] VITALS: BP 105/55; PULSE 98; RESP 18
--- NOTE | 2018-12-30 11:36 | PDOCDIS ---
Discharge Instructions CONDITION [id number] Patient Condition: [id number] Stable HOME CARE INSTRUCTIONS: [id number] Diet Instructions: [id number] Low Fat /Cholesterol ACTIVITY: [id number] Activity Restrictions: Pohqg8a Slowly Increase Activity Rest between Activity Avoid heavy lifting FOLLOW UP/APPOINTMENTS Follow-up Plan Please take your medications as prescribed. Please see your doctor in the office in the next 1 to 2 weeks ROGER BROOKS Dec 30, 2018 11:36
[2018-12-30] MEDS ORDERED: HYOS0.1297 PO (11:41)
[2018-12-30] MEDS ORDERED: SIME80TA60 PO (11:41)
[2018-12-30] MEDS ORDERED: PANT40TA4 PO (11:41)
[2018-12-30] MEDS ORDERED: LEVO100T82 PO (11:41)
[2018-12-30] MEDS ORDERED: [UNRECOGNIZED DRUG - OTHER] PR (11:41)
[2018-12-30] MEDS ORDERED: METH5SOL3 PO (11:41)
--- NOTE | 2018-12-30 11:53 | DS ---
Date/Time of Note Date/Time of Note DATE: 12/30/18 TIME: 11:48 Discharge Summary Admission/Discharge Info Admit Date/Time Dec 22, 2018 at 07:07 Discharge Date/Time Discharge Diagnosis #1 lower GI bleed: Reported bright red blood and has history of hemorrhoids. Seen by GI team, again-s/p EGD 12/24/18-hepatitis, gastritis, biopsies obtained to rule out H. pylori-s/p colonoscopy 12/24/18-internal hemorrhoids otherwise normal colonoscopy #2 intractable abdominal pain- Due to pancreatic cancer, pain symptoms slowly improving #3 Advanced inoperable pancreatic carcinoma-Per hematology oncology team previously received the Gemzar for over 2 years, currently switched to Abraxane since beginning of 2018 with stable disease favorable partial response. #4 history of stomach cancer: Followed by hematology as an outpatient. #5 hypothyroidism: levothyroxine #6 normocytic anemia: Secondary to underlying GI bleed and anemia of chronic disease secondary to cancer Patient Condition: Stable Hx of Present Illness 63-year-old female who is getting chemo currently for pancreatic cancer. She said this morning she started having some diffuse lower abdominal pain and had a urge to have a bowel movement and only blood came out with very little stool. She said the same thing happened last week. She has no nausea vomiting. She has no abdominal pain currently. She said this is happened about 4 times over the past month. The patient does take Pepto-Bismol off and on his and has had black stool at time. She did take Pepto-Bismol today. Hospital Course Patient was admitted and seen by GI, palliative care, and hematology oncology teams during this hospital stay. She underwent EGD and colonoscopy given the GI bleeding symptoms. There was some findings of some gastritis and internal hemorrhoids, and her GI bleeding symptoms resolved. She did require a one-time platelet transfusion one time PRBC transfusion as well. She had leukopenia later on during her hospital stay and hematology oncology team started on Neupogen equivalent medication, and her white blood cell count improved. She was seen by pain management team and placed on low-dose methadone which helped control her pain symptoms from her cancer. She was able to ambulate, tolerated p.o. diet. After getting clearance from the excellence consultant teams she will be discharged home today in improved condition. See below for full list of discharge medications. Home Meds Active Scripts [Skin Resp Fact/Shark/Ph Mercu] 1 EA SUPP No Conflict Check, 1 EA TX BID PRN for HEMORROID PAIN/ITCHING, #1 BOTTLE Prov:ROGER BROOKS S. 12/30/18 Simethicone* (Mylicon*) 80 Mg Tab, 80 MG PO Q6H PRN for DISTENSION/GAS/BLOATING, #120 TAB 1 Refill Prov:CHRIST BROOKSP S. 12/30/18 Pantoprazole* (Pantoprazole*) 40 Mg Tablet., 40 MG PO BID@06,18, #60 2 Refills Prov:ROGER BROOKS S. 12/30/18 Methadone Hcl* (Methadone*) 5 Mg/5 Ml Solution, 1 MG PO Q8 for 30 Days, #1 BOTTLE Prov:ROGER BROOKS S. 12/30/18 Hyoscyamine Sulfate* (Hyoscyamine Sulfate*) 0.125 Mg Tab.subl, 0.125 MG PO Q8H PRN for abd cramping, #90 2 Refills Prov:ROGER BROOKS S. 12/30/18 Levothyroxine Sodium* (Levoxyl*) 100 Mcg Tablet, 100 MCG PO BEFORE BREAKFAST, #30 TAB 2 Refills Prov:ROGER BROOKS S. 12/30/18 Discontinued Reported Medications Omeprazole* (Omeprazole*) 40 Mg Capsule., 1 CAP PO DAILY 08/31/18 Discontinued Scripts Pantoprazole* (Protonix*) 40 Mg Tablet., 40 MG PO DAILY, #10 TAB Prov:OBI JOHNSTON MD 11/05/18 Tramadol HCl (Tramadol HCl) 50 Mg Tablet, 50 MG PO Q6 PRN for PAIN, #10 TAB Prov:OBI JOHNSTON MD 11/05/18 Follow-up Plan Please take your medications as prescribed. Please see your doctor in the office in the next 1 to 2 weeks Primary Care Provider Not On Staff Doctor Time spent on discharge: > 30 minutes Pending Labs Laboratory Tests Test 12/30/18 05:49 12/30/18 06:34 White Blood Count 15.6 10^3/ul (4.8-10.8) Red Blood Count 2.47 10^6/ul (4.20-5.40) Hemoglobin 8.4 g/dl (12.0-16.0) Hematocrit 25.2 % (37.0-47.0) Mean Corpuscular Volume 102.0 fl (82.0-101.0) Mean Corpuscular Hemoglobin 34.0 pg (29.0-33.0) Mean Corpuscular 33.3 g/dl (32.0-37.0) Hemoglobin Concent Red Cell Distribution Width 14.6 % (11.5-14.5) Platelet Count 94 10^3/UL (140-415) Mean Platelet Volume 11.4 fl (7.4-10.4) Immature Granulocytes % 6.800 % (0.001-0.429) Neutrophils % % (39.0-77.0) Segmented Neutrophils % (Manual) 41 % (39-77) Band Neutrophils % (Manual) 23 % (0-4) Lymphocytes % % (15.0-51.0) Lymphocytes % (Manual) 31 % (15-51) Monocytes % % (0.0-11.0) Monocytes % (Manual) 5 % (0-11) Eosinophils % % (0.0-7.0) Basophils % % (0.0-2.0) Nucleated Red Blood Cells % 0.1 /100WBC (0.0-0.0) Immature Granulocytes # 1.060 10^3/ul (0.0-0.031) Neutrophils # 10^3/ul (1.6-7.5) Neutrophils # (Manual) 6.9 10^3/ul (1.6-7.5) Band Neutrophils # 3.5 10^3/ul (0.0-0.6) Lymphocytes (Manual) 4.8 10^3/ul (0.8-2.9) Lymphocytes # 10^3/ul (0.8-2.9) Monocytes # 10^3/ul (0.3-0.9) Monocytes # (Manual) 0.7 10^3/ul (0.3-0.9) Eosinophils # 10^3/ul (0.0-0.5) Basophils # 10^3/ul (0.0-0.1) Nucleated Red Blood Cells # 10^3/ul (0.0-0.0) Platelet Estimate DECREASED Polychromasia 3+ (0-0) Poikilocytosis 3+ (0-0) Anisocytosis 2+ (0-0) Macrocytosis 2+ (0-0) Target Cells 1+ (0-0) Sodium Level 138 mmol/L (135-144) Potassium Level 4.0 mmol/L (3.5-5.1) Chloride Level 108 mmol/L (97-110) Carbon Dioxide Level 26 mmol/L (21-31) Anion Gap 4 (5-13) Blood Urea Nitrogen 5 mg/dl (7-20) Creatinine 0.65 mg/dl (0.44-1.00) Est Glomerular Filtrat Rate mL/min > 60 mL/min (>60) Glucose Level 81 mg/dl (70-220) Calcium Level 8.6 mg/dl (8.4-10.2) Phosphorus Level 2.9 mg/dl (2.5-4.9) Magnesium Level 1.6 mg/dl (1.7-2.5) Lab Scanned Report BLOOD TRANSFUSION ROGER BROOKS. Dec 30, 2018 11:53
[2018-12-30] MEDS ORDERED: MAGNESIUM SULFATE 1 GM/D5W 100 ML IVPB ONE (12:30)
[2018-12-30 15:18] VITALS: BP 112/61; PULSE 77; RESP 17
[2018-12-30] MEDS ORDERED: HEPARIN (100 UNITS/ML) 5 ML SYG CATHETER ONE (16:00)
== END 2018-12-30 17:00 | disposition home or self-care (01) | DRG 378 ==
LOC: E/R 15:52 → 2NE 20:18 → OBSVTOIN 12-22 07:07
PROVIDERS: ADMIT Family Medicine; ATTEND Hospitalist
PROC: 0DJD8ZZ Inspection of Lower Intestinal Tract, Via Natural or Artificial Opening Endoscopic (ICD-10-PCS; principal; 2018-12-24 14:30)
PROC: 0DB98ZX Excision of Duodenum, Via Natural or Artificial Opening Endoscopic, Diagnostic (ICD-10-PCS; 2018-12-24 14:30)
PROC: 30233R1 Transfusion of Nonautologous Platelets into Peripheral Vein, Percutaneous Approach (ICD-10-PCS; 2018-12-27)
PROC: 30233N1 Transfusion of Nonautologous Red Blood Cells into Peripheral Vein, Percutaneous Approach (ICD-10-PCS; 2018-12-27)
DX: K92.2 Gastrointestinal hemorrhage, unspecified (principal); C25.9 Malignant neoplasm of pancreas, unspecified; R10.9 Unspecified abdominal pain; E03.9 Hypothyroidism, unspecified; D64.9 Anemia, unspecified; D69.6 Thrombocytopenia, unspecified; K29.70 Gastritis, unspecified, without bleeding; K64.8 Other hemorrhoids; Z92.21 Personal history of antineoplastic chemotherapy; Z88.6 Allergy status to analgesic agent; Z91.040 Latex allergy status; Z85.028 Personal history of other malignant neoplasm of stomach; Z51.5 Encounter for palliative care; K75.9 Inflammatory liver disease, unspecified; D63.0 Anemia in neoplastic disease
CPT/HCPCS: 36415; 36430; 74177; 80048; 80053; 80061; 81003; 82150; 83010; 83036; 83605; 83615; 83690; 83735; 84100; 84443; 85025; 85045; 85610; 85730; 86644; 86850; 86870; 86900; 86901; 86902; 86920; 88305; 88312; 96365; 96375; 97116; 97162; 97167; 97530; 97535; C9113; G0378; J0360; J0696; J1170; J1642; J2270; J2370; J2405; J2765; J3475; J7030; J7050; P9016; P9035; Q5110; Q9967

== ENCOUNTER 2019-02-02 11:36 | Emergency (ER) | payer OTHER ==
[~2019-02-02] VITALS: Ht 157.5 cm; Wt 55.0 kg
[~2019-02-02 11:36] MED LIST changes: +HYOS0.1297 PO; +METH5SOL3 PO; -OMEP40CA6 PO; -PANT40TA3 PO; +PANT40TA4 PO; +SIME80TA60 PO; -TRAM50TA2 PO; +[UNRECOGNIZED DRUG - OTHER] PR
[2019-02-02 11:44] VITALS: Ht 157.5 cm; Wt 55.0 kg
[2019-02-02] MEDS ORDERED: SOD CHLORIDE 0.9% 1,000 ML IV STA (12:13)
[2019-02-02] MEDS ORDERED: HYDROmorphONE 1 MG/ML SYG IV STA (12:13)
[2019-02-02] MEDS ORDERED: ONDANSETRON 4 MG INJ IV STA (12:13)
[2019-02-02 15:16] VITALS: BP 143/80; PULSE 91; RESP 12
[2019-02-02] MEDS ORDERED: HEPARIN (100 UNITS/ML) 5 ML SYG CATHETER ONE (15:30)
== END 2019-02-02 15:31 | disposition home or self-care (01) ==
LOC: E/R 11:36
DX: C25.9 Malignant neoplasm of pancreas, unspecified (principal); I10 Essential (primary) hypertension; J45.909 Unspecified asthma, uncomplicated; Z91.040 Latex allergy status; Z85.028 Personal history of other malignant neoplasm of stomach; Z96.652 Presence of left artificial knee joint
CPT/HCPCS: 36415; 71045; 74176; 80053; 81003; 83690; 84484; 85025; 85610; 93005; 96374; 96375; J1170; J1642; J2405; J7030; Z7502; Z7610